=== PATIENT | female | born 2000 | race Caucasian/White ===

== ENCOUNTER → 2025-08-12 | Outpatient (CLI) | payer OTHER, SELFPAY | END | disposition home or self-care (01) | LOC: LABSPEC 12:29 | PROVIDERS: Referring Provider Advanced Practice Midwife; Visit Provider Advanced Practice Midwife | DX: Z34.90 Encounter for supervision of normal pregnancy, unspecified, unspecified trimester (principal); Z3A.00 Weeks of gestation of pregnancy not specified | CPT/HCPCS: 87086 ==

== ENCOUNTER → 2025-09-02 | Outpatient (CLI) | payer OTHER, SELFPAY ==
--- NOTE | 2025-09-02 15:15 | US_ITS ---
PROCEDURE: OB LIMITED WITH BIOMETRICS 09/02/2025 REASON FOR EXAM: GROWTH TECHNIQUE: Procedure Code: USOBGROWTH Modality: US Procedure: OB LIMITED WITH BIOMETRICS COMPARISON: None FINDINGS Number: 1 Position: Vertex Placental Position: Anterior and not low-lying Placental Abnormalities: No evidence of previa. DIMENSIONS: Biparietal Diameter: 8.3 cm: 33 weeks and 3 days: 14 percentile/ Head Circumference: 31.2 cm: 34 weeks and 6 days: 16 percentile/ Abdominal Circumference: 30.5 cm: 34 weeks and 3 days: 41 percentile/ Femur Length: 6.4 cm: 33 weeks and 0 days: 5 percentile/ ESTIMATED WEIGHT: 2322 g plus/-340 g ESTIMATED WEIGHT PERCENTILE (24+ weeks): 21 ESTIMATED GESTATIONAL AGE: Baseline: 35 weeks and 0 days By Ultrasound: October 07, 2025 ESTIMATED DATE OF DELIVERY: Baseline: 33 weeks and 5 days By Ultrasound: October 16, 2025 BIOPHYSICAL ASSESSMENT: Amniotic Fluid Volume: 4.1 cm Amniotic Fluid Index: 12 cm (8-24 cm normal range) Cardiac Motion: 150 beats per minute (average) Trunk and Limb Motion: Present. MATERNAL ANATOMY: Adnexa: Neither maternal ovary is successfully identified. US/OB Limited With Biometrics IMPRESSION: Single live intrauterine gestation with a mean gestational age of 33 weeks and 5 days. Reading Location: [place] [id number]
--- NOTE | 2025-09-02 15:15 | US_ITS ---
PROCEDURE: OB LIMITED WITH BIOMETRICS 09/02/2025 REASON FOR EXAM: GROWTH TECHNIQUE: Procedure Code: USOBGROWTH Modality: US Procedure: OB LIMITED WITH BIOMETRICS COMPARISON: None FINDINGS Number: 1 Position: Vertex Placental Position: Anterior and not low-lying Placental Abnormalities: No evidence of previa. DIMENSIONS: Biparietal Diameter: 8.3 cm: 33 weeks and 3 days: 14 percentile/ Head Circumference: 31.2 cm: 34 weeks and 6 days: 16 percentile/ Abdominal Circumference: 30.5 cm: 34 weeks and 3 days: 41 percentile/ Femur Length: 6.4 cm: 33 weeks and 0 days: 5 percentile/ ESTIMATED WEIGHT: 2322 g plus/-340 g ESTIMATED WEIGHT PERCENTILE (24+ weeks): 21 ESTIMATED GESTATIONAL AGE: Baseline: 35 weeks and 0 days By Ultrasound: October 07, 2025 ESTIMATED DATE OF DELIVERY: Baseline: 33 weeks and 5 days By Ultrasound: October 16, 2025 BIOPHYSICAL ASSESSMENT: Amniotic Fluid Volume: 4.1 cm Amniotic Fluid Index: 12 cm (8-24 cm normal range) Cardiac Motion: 150 beats per minute (average) Trunk and Limb Motion: Present. MATERNAL ANATOMY: Adnexa: Neither maternal ovary is successfully identified. US/OB Limited With Biometrics IMPRESSION: Single live intrauterine gestation with a mean gestational age of 33 weeks and 5 days. Reading Location: [place] [id number]
== END | disposition home or self-care (01) ==
LOC: US 15:12
PROVIDERS: Referring Provider Nurse Practitioner Women's Health; Visit Provider Nurse Practitioner Women's Health
DX: O26.849 Uterine size-date discrepancy, unspecified trimester (principal); Z3A.00 Weeks of gestation of pregnancy not specified
CPT/HCPCS: 76816

== ENCOUNTER → 2025-09-16 | Outpatient (CLI) | payer OTHER, SELFPAY | END | disposition home or self-care (01) | LOC: LABSPEC 16:22 | PROVIDERS: Visit Provider Advanced Practice Midwife | DX: Z34.03 Encounter for supervision of normal first pregnancy, third trimester (principal); Z3A.37 37 weeks gestation of pregnancy | CPT/HCPCS: 87081 ==

== ENCOUNTER 2025-10-01 17:57 | Inpatient (IN) | payer OTHER, SELFPAY ==
[2025-10-01] VITALS (16 sets, daily range): BP systolic 115–136; BP diastolic 67–84; PULSE 76–100; RESP 14–16; TEMP 36.3–36.9; O2SAT 92–99; BMI 25.7
[2025-10-01 15:08] LABS: Hematocrit 34.8 % (37-47); Hemoglobin 11.7 g/dL (12.0-15.0); Mean Corp Hgb Conc 33.6 g/dL (32-36); Mean Corpuscular Volume 84.5 fL (81-99); Mean Platelet Vol. 9.7 fl (6.2-12.0); Platelet Count 234 K/mm3 (150-450); RBC Distribution Width CV 12.7 % (11.6-14.6); RBC Distribution Width SD 39.0 fl (35.1-43.9); Red Blood Count 4.12 M/mm3 (4.2-5.4); White Blood Count 11.4 K/mm3 (4.4-11.0)
[2025-10-01 15:31] LABS: AST(SGOT) 23 U/L (<=31); Alanine Aminotransfer ALT/SGPT 14 U/L (<=34); Uric Acid 4.1 mg/dL (2.6-6.0)
[2025-10-01 15:37] LABS: Creatinine, Urine (random) 20.50 mg/dL (28.00-217.00); Protein, Urine (Random) < 6.0 mg/dL (0.0-12.0); Protein:Creat Ratio UNABLE TO CALCULATE mg/g CRE (0-200)
--- NOTE | 2025-10-01 16:17 | US_ITS ---
PROCEDURE: OB BIOPHYSICAL PROF W/O NST 10/01/2025 REASON FOR EXAM: R/O PRE-E TECHNIQUE: Procedure Code: USBIOWO Modality: US Procedure: OB BIOPHYSICAL PROF W/O NST COMPARISON: US OB LIMITED, 09/02/2025 FINDINGS FETUS: There is a single living intrauterine gestation. POSITION: position is cephalic. HEART RATE: The heart rate is 143 bpm and regular. ANATOMIC SURVEY: Detailed anatomy survey not performed. The visualized anatomy is unremarkable. CERVIX: Not well visualized. PLACENTA: The placenta is anterior. Grade 2. No demonstrated evidence of previa or abruption. BREATHING MOVEMENTS: Score 0/2. BODY MOVEMENTS: Score 2/2. TONE: Score 2/2. QUALITATIVE AMNIOTIC FLUID VOLUME: 7.0 cm, largest pocket 3.0 cm Score 2/2. US/OB Biophysical Prof W/O NST IMPRESSION: 1. Single live intrauterine gestation. 2. Equivocal biophysical profile, 04/25. breathing movements not visualiz ed. Reading Location: [id number]
--- NOTE | 2025-10-01 17:59 | HP.PCM.OB_ITS ---
HPI - General General Date of Admission: 10/01/25 Date of Service: 10/01/25 HPI Narrative CHARLIE ROCHE, is a 25 F who presents to unit for elevated BP in office. Pre e labs normal, BPP 6/8 and decision made for augmentation of labor. She is edgard every 5 minutes palpating moderate. 4/70/-1. Would like to attempt augmentation with AROM and if no change in 3-4 hours will start pitocin. Maternal Data Information [place] Calculator Estimated Delivery Date Method Current WG Current Estimate 10/07/25 LMP (Certain) 39w 1d Final [place]: 10/07/25 Final [place] Source: US >20 weeks Gestational age: 39.1 PFSH PFSH Home Medications Medication Instructions Recorded Last Taken Type multivitamin no.47-iron fum 27 cap PO 10/01/25 History mg-folate no.1 1 mg-dha 300 mg capsule (PNV-DHA) breast pump #1 ea 08/18/25 Unknown Rx Allergy/AdvReac Type Severity Reaction Status Date / Time Latex, Natural Rubber Allergy Mild Rash Verified 10/01/25 16:23 sertraline AdvReac Intermediate Other Verified 10/01/25 16:23 Family History Mother Diabetes Cancer, Onset Age: 40 thyroid cancer Family history of recurrent miscarriage 3 miscarriages Father Hypertension Maternal Grandmother , at 55 yo Breast cancer, Onset Age: 50 Brother Spina bifida Surgical History Hx of tonsillectomy [place] teeth extracted Social History adopted: No household members: spouse housing: house current occupational status: previously employed 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 current occupational exposures/hazards: No pets and animals: Yes (Avoid litterbox) pets and animals: cat(s) and dog(s) history of recent travel: No sexually active: Yes Smoking Status: Never smoker alcohol intake: never substance use type: does not use well-balanced diet: about half the time caffeine: Yes Type: coffee Number of servings: 1 eating out: 1-3 times/week during the past year weight has: remained stable what type of physical activity do you participate in: other details: pilates,strength training light wt frequency: 1-2 times per week duration: 15-30 minutes/day kaleb/confucianist: Holiness seatbelt use: always do you feel safe at home: Yes additional social history: [employer]- [employer] History 2 Elective abortions Hx Para 0 Spontaneous abortions 1 Hx # Term Pregnancies Ectopic pregnancies Hx # Pregnancies Multiple births # of living children 0 Past Pregnancies Del. Date Name GA/Weeks Outcome Route Bth Weight [facility] miscar[facility] 6 spontaneous Visit Details Expected Delivery Route/Plan Labor Preferences- CB/BF classes: no labor support person: Channing labor intervention preferences: minimal preferred but open pain management options preferred: limited but ok with epidural, open to touch, massage, guided breathing, open to prayer cut cord/dad catch: cord : yes PP control planned: [] discussed possible routes of delivery and associated risks: discussed possible delivery modalities and possible indications for each including R/B/A of , VAVD, and CS. questions answered. special requests: [] Plans Covid status: [] Flu vaccine: declines Tdap vaccine: declines Rhogam: NA LARC form signed: yes movement and labor precautions reviewed. Problem list reviewed and updated with the most current plan of care details and appropriate orders placed. Relevant counseling for the gestational age provided. Continue routine care and follow up unless otherwise noted in visit notes/problem list details OB Flowsheet Initial Weight: 168 lb Date - - - - - - - - - - - - - EGA Weight BP Urine Prot - - - - - - - - - - - - - Glucose FHR FuHt Pres Dilation - - - - - - - - - - - - - Effaced St Visit Note 08/12/25 - - - - - - - - - - - - - 32w 0d 168 lb (+0 oz) 118/75 - - - - - - - - - - - - - 140 31 - - - - - - - - - - - - - KW- DANICA from [facility]. Records requested. reports normal labs/glucose and US. LARC today. 08/26/25 - - - - - - - - - - - - - 34w 0d 169 lb 8 oz (+1 lb 8 oz) 120/80 Negative - - - - - - - - -- - - - - Negative 147 32 - - - - - - - - - - - - - MH-No VB, LOF. G ood Fm Declines tdap, flu. Larc 09/16/25 - - - - - - - - - - - - - 37w 0d 174 lb 4 oz (+6 lb 4 oz) 133/80 Negative - - - - - - - - - - - - - Negative 155 36 Cephalic 2 .5 - - - - - - - - - - - - - 60 -2 KW- no vb/ lof/ctx. good fm. GBS today. 09/23/25 - - - - - - - - - - - - - 38w 0d 172 lb 6 oz (+4 lb 6 oz) 130/84 Negative - - - - - - - - - - - - - Negative 125 36 Cephalic 1 - - - - - - - - - - - - - 60 -2 JV- no lof , vaginal bleeding, or dec fm. VICTORIA today is 12.47 10/01/25 - - - - - - - - - - - - - 39w 1d 175 lb 7 oz (+7 lb 7 oz) 138/85 Negative - - - - - - - - - - - - - Negative 140 36 Cephalic 4 - - - - - - - - - - - - - 70 -1 KW- no vb/ lof/ctx. good fm. requesting membrane sweep today. NST FHR Rate Baby A Baseline: 135 Variability:: Moderate Accelerations:: 15 x 15 Decelerations:: None NST Reactive:: Yes FHR Category:: Category I Uterine Activity:: 5-6 ROS Constitutional Constitutional: Denies change in weight, fatigue, fever(s), headache(s), poor appetite or weakness Eyes Eyes: Denies blurry vision, change in vision, floaters, seeing flashes or spots in vision ENT HEENT: Denies dizziness, headache(s), loss taste/smell or sore throat Cardiovascular Cardiovascular: Denies chest pain, dizziness, dyspnea, irregular heart rhythm, lightheadedness, palpitations or rapid heart rate Respiratory/Chest Respiratory/Chest: Denies change in mental status, chest tightness, cough, dyspnea or breast pain Gastrointestinal Gastrointestinal: Denies anorexia, chewing difficulty, constipation, diarrhea or weight changes Genitourinary Genitourinary: Denies difficulty urinating, dysuria, flank pain, genital pain, urinary frequency or urinary urgency Musculoskeletal Musculoskeletal: Denies back pain, difficulty walking, extremity pain, joint pain, muscle cramps or muscle weakness Integumentary Integumentary: Denies lesions or unusual bruising Neurologic Neurologic: Denies abnormal movements, abnormal speech, dizziness, numbness, seizure-like activity, syncope or weakness Psychiatric Psychiatric: Denies behavioral changes, change in appetite, confusion, depression, homicidal ideation, suicidal ideation or suicidal thoughts Endocrine Endocrinology: Denies excessive sweating, polydipsia or polyuria Hematologic/Lymphatic Hematologic/Lymphatic: Denies anemia Allergic/Immunologic Allergic/Immunologic: Denies itchy eyes, lip swelling, throat swelling, tongue swelling or wheezing Vital Signs Vital Signs Vital Signs: 10/01/25 14:47 10/01/25 14:47 10/01/25 14:47 Temperature Temperature Source Pulse Rate 81 Respiratory Rate Blood Pressure 136/84 H BP Systolic 136 BP Diastolic 84 Pulse Ox 98 10/01/25 14:50 10/01/25 14:50 10/01/25 14:50 Temperature Temperature Source Tympanic Pulse Rate Respiratory Rate 14 Blood Pressure BP Systolic BP Diastolic Pulse Ox 99 10/01/25 14:50 10/01/25 15:02 10/01/25 15:02 Temperature 98.0 F Temperature Source Pulse Rate 77 Respiratory Rate Blood Pressure 131/84 H BP Systolic 131 BP Diastolic 84 Pulse Ox 10/01/25 15:17 10/01/25 15:17 10/01/25 15:33 Temperature Temperature Source Pulse Rate 91 Respiratory Rate Blood Pressure 120/74 119/74 BP Systolic 120 119 BP Diastolic 74 74 Pulse Ox 10/01/25 15:33 10/01/25 15:47 10/01/25 15:47 Temperature Temperature Source Pulse Rate 82 81 Respiratory Rate Blood Pressure 127/79 H BP Systolic 127 BP Diastolic 79 Pulse Ox 10/01/25 16:03 10/01/25 16:03 10/01/25 16:18 Temperature Temperature Source Pulse Rate 82 Respiratory Rate Blood Pressure 122/76 H 128/76 H BP Systolic 122 128 BP Diastolic 76 76 Pulse Ox 10/01/25 16:18 10/01/25 16:32 10/01/25 16:32 Temperature Temperature Source Pulse Rate 78 83 Respiratory Rate Blood Pressure 115/68 BP Systolic 115 BP Diastolic 68 Pulse Ox 10/01/25 16:47 10/01/25 16:47 Temperature Temperature Source Pulse Rate 100 Respiratory Rate Blood Pressure 116/72 BP Systolic 116 BP Diastolic 72 Pulse Ox Weight Weight: 174 lb Body Mass Index (BMI) 25.7 Physical Exam Const alert, oriented x3 and no apparent distress General Appearance: cooperative Orientation / Consciousness: awake HEENT normocephalic Neck full ROM Lymph Lymphatic: no lymphadenopathy noted Chest inspection of chest normal Resp normal respiratory effort and normal air movement Effort and Inspection: able to speak in complete sentences and symmetric chest movement GI soft to palpation and non-tender Inspection: gravid Palpation: soft; Negative for tender external exam normal Back/Spine normal to inspection Extremity normal to inspection and full ROM Skin no rashes or lesions noted Psych mental status grossly normal Appearance: grossly normal Speech: normal speech Labs Labs Labs: Hct, (37-47) 34.8 % L Hgb, (12.0-15.0) 11.7 g/dL L Pap Smear Negative Obstetrics Ultrasound Assessment & Plan (1) Encounter for induction of labor: PLAN: Patient presents IOL, plan management for with pitocin/AROM. Pain management: plans no epidural. GBS negative. Management of any complications: none I have reviewed the [facility] and made any clinically relevant updates. Dr Link aware of assessment, plan and admission. agrees with plan (2) Small for dates affecting management of mother: QUALIFIERS: Fetus number: single or unspecified fetus Trimester: third trimester Qualified Code(s): O36.5930 - Maternal care for other known or suspected poor growth, third trimester, not applicable or unspecified COMMENT: growth US:33wk:21% EFW, 41%AC (3) Anxiety: (4) FH: spina bifida: COMMENT: Brother-Pt not offered AFP testing at prior provider. (5) History of miscarriage, currently : (6) Supervision of normal : QUALIFIERS: Normal : normal first Trimester: third trimester Qualified Code(s): Z34.03 - Encounter for supervision of normal first , third trimester COMMENT: PRR(scanned/[facility]) , [place] 10/07/25, [place] (7) : QUALIFIERS: Weeks of gestation: 39 weeks Qualified Code(s): Z3A.39 - 39 weeks gestation of COMMENT: GBS neg, DANICA to [facility] @ 32 wks, declined NIPT & Carrier testing Charges/Coding Multi Select Codes Urinary/Genital Urinary/Genital CPT Codes: No Charge
--- OUTSIDE RECORDS SUMMARY | 2025-10-01 18:07 | XMS RPT_ITS | CCD ---
Author Organization [facility] Care Team Providers Care Director Blood Bank Name Role Phone Candelario MOODY MD Unavailable MARISELA TRIANA, SHARON Malik Unavailable MEGAN LEBLANC RN Unavailable Unavailable JERRELL SALMON Unavailable Esteban MADRID MD Unavailable DORIS EL Unavailable Unavailable MASHA HI Unavailable Unavailable Nay Khan RN Unavailable Unavailable Unavailable Unavailable Candelario MOODY Consulting Unavailable Candelario MOODY Referring Unavailable RAAD UNGER MD Admitting Unavailable RAAD UNGER MD Primary Care Unavailable RAAD UNGER MD Attending Unavailable PROVIDER, UNKNOWN Consulting Unavailable PROVIDER, UNKNOWN Consulting Unavailable PROVIDER, UNKNOWN Consulting Unavailable Candelario MOODY Admitting Unavailable Candelario MOODY Primary Care Unavailable Candelario MOODY Consulting Unavailable Candelario MOODY Attending Unavailable PROVIDER, UNKNOWN Consulting Unavailable PROVIDER, UNKNOWN Consulting Unavailable PROVIDER, UNKNOWN Consulting Unavailable JERRELL SALMON Unavailable Unav ailable FRANSISCO TRIANA, DR MACK Primary Care Physician DENISE OROZCO Attending Lexie MOODY MD, DR MACK Primary Care Unavailable FRANSISCO TRIANA, DR MACK Primary Care Unavailable DENISE OROZCO Attending Lexie MOODY MD, DR MACK Primary Care Unavailable DENISE OROZCO Attending eBrnice Che Attending Physician Unavailable Neva Dodge CNM Attending Physician [phone] Neva Dodge CNM Referring Provider [place] SULFIDE HEAD OPERATOR-C, Addie Attending Physician [phone] Bernice Quintero Attending Unavailable Neva Dodge Attending Unavailable Bernice Quintero Attending Unavailable Bernice Quintero Attending Unavailable Bernice Quintero Attending Unavailable Care Physician, No Primary Primary Care Unava ilable [place] SULFIDE HEAD OPERATOR, Addie Attending Unavailable [place] SULFIDE HEAD OPERATOR, Addie Referring Unavailable Neva Dodge Attending Unavailable Care Physician, No Primary Primary Care Unava ilable Neva Dodge Attending Unavailable Neva Dodge Referring Unavailable Bernice Quintero Attending Unavailable [place] SULFIDE HEAD OPERATOR, Addie Attending Unavailable Care Physician, No Primary Primary Care Unava ilable Care Physician, No Primary Referring Unava ilable Meli Link Attending Unavailable Care Physician, No Primary Primary Care Unava ilable Neva Dodge Attending Unavailable Care Physician, No Primary Referring Unava ilable Care Physician, No Primary Referring Unava ilable Care Physician, No Primary Primary Care Unava ilable Payton Bah Attending Unavailabl e Bernice uQintero Attending Physician Unavailable Dar SIMMONS, Neva Attending Physician [phone] Neva Dodge CNM Referring Provider [phone] [place] SULFIDE HEAD OPERATOR-C, Addie Attending Physician [phone] [place] SULFIDE HEAD OPERATOR-C, Addie Referring Provider [phone] Care Physician, No Primary Primary Care Physicia n Unavailable Dr. Meli Link MD Attending Physician Care Physician, No Primary Referring Provider Un available Dr. Payton Bah DO Attending Physician Allergies Allergy Classification Reported Allergen(s) Allergy Type Date of Onset Reaction(s) Facility (7 sources) Amoxicillin / Clavulanate Drug Allergy [facility] (15 sources) Latex; Translations: [LATEX] [facility] (11 sources) Sertraline Drug Allergy 08-12-2025 [facility] Comment on above: epistaxis (4 sources) natural latex rubber Allergy to substance 08-12-[address] [facility] (1 source) natural latex rubber Drug allergy (disorder) 09-23-2025 [facility] (1 source) Sertraline Drug Allergy 09-23-2025 [facility] Medications Current Medications Medication Drug Class(es) Dates Sig (Normalized) Sig (Original) azithromycin 250 mg oral tablet (9 sources) Macrolide Antimicrobial Start: 11-20-2024 azithromycin 250 mg tablet ; 2 (two) Tablet on day one, then 1 tablet daily for 4 days for 5 days Quantity: 6 {Tablet} Refills: 0 Ordered: 20-Nov-2024 MD SHARON ANTONIO Start: 20-Nov-2024 Start: 02-06-2023 End: 02-11-2023 take 1 tablet by mouth once daily azithromycin 500 mg oral tablet ; 1 (one) tablet daily for 5 days Quantity: 5 {Tablet} Refills: 0 Ordered: 01-Jul-2023 ANDREI CASTRO Start: 06-Feb-2023 End: 11-Feb-2023 Status: Inactive Breast Pump device (3 sources) Start: 08-18-2025 Breast Pump de vice Active 0 .Route 1 0 August 17, 2025 11:00pm Breast feeding status of mother Encounter for care and examination of lactating mother Medela breast pump. Use as directed. Start: 08-18-2025 Breast Pump de vice Active 0 .Route 1 0 August 18, 2025 12:00am Breast feeding status of mother Encounter for care and examination of lactating mother Medela breast pump. Use as directed. Multivit 17-Ebzb-Ayfnfz 1-Dh a (Pnv-Dha) 27 mg iron-1 mg -300 mg capsule (3 sources) Start: 08-11-2025 Multivit 47-Ir on-Folate 1-Dha (Pnv-Dha) 27 mg iron-1 mg -300 mg capsule Active NMA PO August 10, 2025 11:00pm Complies with drug therapy Start: 08-11-2025 Multivit 47-Ir on-Folate 1-Dha (Pnv-Dha) 27 mg iron-1 mg -300 mg capsule Active NMA PO August 11, 2025 12:00am Complies with drug therapy omega-3 fatty acids 1,000 mg capsule (4 sources) omega-3 fatty ac ids 1,000 mg capsule ; (1,000 mg) Vitamin (4 sources) Vitamin Completed/Discontinued Medications Medication Drug Class(es) Dates Sig (Normalized) Sig (Original) cephalexin 250 mg oral capsule (14 sources) Cephalosporin Antibacterial Start: 02-19-2024 End: 02-29-2024 cephALEXin 250 mg capsule ; 1 (one) capsule qid for 10 days Quantity: 40 {Capsule} Refills: 0 Ordered: 30-Jul-2024 MD Candelario MOODY Start: 19-Feb-2024 End: 29-Feb-2024 Status: Inactive Start: 08-29-2019 End: 09-08-2019 take 1 capsule by mouth three times daily Cephalexin 500 MG Oral Capsule ; 1 (one) Capsule tid for 10 days Quantity: 30 {Capsule} Refills: 0 Ordered: 29-Aug-2019 MD Candelario MOODY Start: 29-Aug-2019 End: 08-Sep-2019 Status: Inactive DULoxetine 20 mg delayed release oral capsule (7 sources) Serotonin and Norepinephrine Reuptake Inhibitor Start: 06-02-2021 End: 02-06-2023 take 1 capsule by mouth once daily DULoxetine 20 mg oral capsule,delayed release (enteric coated) ; 1 (one) Capsule daily for 30 days Quantity: 30 {Capsule} Refills: 1 Ordered: 06-Feb-2023 MI Khan Start: 02-Jun-2021 End: 06-Feb-2023 Status: Inactive Ethinyl Estradiol / Levonorgestrel (7 sources) Progestin, Estrogen, Progestin-containin g Intrauterine Device Aviane 0.1-20 MG-MCG Oral Tablet ; daily (0.1-20 MG-MCG) Status: Inactive Comments: control Comment on above: control hydrOXYzine hydrochloride 25 mg oral tablet (7 sources) Antihistamine Start: 06-02-2021 End: 06-12-2021 take 1 tablet by mouth four times daily as needed hydrOXYzine HCl 25 MG Oral Tablet ; 1 (one) Tablet 4 times a day as needed for 10 days Quantity: 40 {Tablet} Refills: 0 Ordered: 14-Jun-2021 ANDREI CASTRO Start: 02-Jun-2021 End: 12-Jun-2021 Status: Inactive Comments: Medication taken as needed. Comment on above: Medication taken as needed. ondansetron 4 mg disintegrating oral tablet (7 sources) Serotonin-3 Receptor Antagonist Start: 09-27-2017 End: 02-26-2018 take 1 tablet by mouth every eight hours as needed Zofran ODT 4 MG Oral Tablet Disintegrating ; 1 (one) Tablet Disperse every eight hours, as needed for 0 days Quantity: 8 {Tablet} Refills: 2 Ordered: 26-Feb-2018 CIPRIANO MARTIN Start: 27-Sep-2017 End: 26-Feb-2018 Status: Inactive Comments: Medication taken as needed. Comment on above: Medication taken as needed. sertraline 50 mg oral tablet (7 sources) Serotonin Reuptake Inhibitor Start: 05-05-2021 End: 02-06-2023 take 1 tablet by mouth once daily Zoloft 50 mg oral tablet ; 1 (one) Tablet Tablet daily for 30 days Quantity: 30 {Tablet} Refills: 1 Ordered: 06-Feb-2023 MI Khan Start: 05-May-2021 End: 06-Feb-2023 Status: Inactive sulfamethoxazole 800 mg / trimethoprim 160 mg oral tablet (7 sources) Dihydrofolate Reductase Inhibitor Antibacterial, Sulfonamide Antimicrobial Start: 02-26-2018 End: 03-01-2018 take 1 tablet by mouth twice daily Bactrim DS 800-160 MG Oral Tablet ; 1 (one) Tablet bid for 3 days Quantity: 6 {Tablet} Refills: 0 Ordered: 03-Mar-2018 MD Candelario MOODY Start: 26-Feb-2018 End: 01-Mar-2018 Status: Inactive triamcinolone acetonide 0.055 mg/actuat metered dose nasal spray (7 sources) Corticosteroid Nasacort Allergy 24HR 55 MCG/ACT Nasal Aerosol ; 2 squirts each nose daily (55 MCG/ACT) Status: Inactive Problems Active Problems Problem Classification Problem Date Documented Date Episodic/Chronic Administrative/socia l admission (14 sources) Patient encounter status; Translations: [Counseling, unspecified] 02-06-2023 Episodic Anxiety disorders (20 sources) Mixed anxiety and depressive disorder; Translations: [Anxiety disorder, unspecified] Onset: 09-23-2025 02-06-2023 Chronic Disorders of teeth and jaw (7 sources) Toothache; Translations: [Other specified disorders of teeth and supporting structures] 08-27-2019 Episodic Gastritis and duodenitis (14 sources) Acute gastritis; Translations: [Acute gastritis without bleeding] 02-06-2023 Episodic Immunizations and screening for infectious disease (7 sources) Other specified vaccination 05-14-2012 Episodic Other and unspecified benign neoplasm (14 sources) Melanocytic nevus of trunk; Translations: [Melanocytic nevi of trunk] 02-06-2023 Episodic Comment on above: Dark, back. 5mm. Other and unspecified benign neoplasm (14 sources) Benign neoplasm of soft tissue; Translations: [Melanocytic nevi, unspecified] 02-06-2023 Episodic Comment on above: 1 Left breast. 1 mm. Benign. Other complications of ; puerperium affecting management of mother (1 source) Maternal care for (suspected) abnormality and damage, unspecified, not applicable or unspecified; Translations: [Maternal care for (suspected) abnormality and damage, unspecified, not applicable or unspecified] Onset: 05-28-2025 Episodic Other complications of (13 sources) H/O: miscarriage; Translations: [Supervision of with other poor reproductive or obstetric history, unspecified trimester] 08-11-2025 Episodic Other complications of (1 source) Maternal care for other known or suspected poor growth, third trimester, not applicable or unspecified; Translations: [Maternal care for other known or suspected poor growth, third trimester, not applicable or unspecified] Onset: 09-23-2025 Episodic Other complications of (1 source) Supervision of with other poor reproductive or obstetric history, unspecified trimester; Translations: [Supervision of with other poor reproductive or obstetric history, unspecified trimester] Onset: 09-23-2025 Episodic Other complications of (1 source) Uterine size-date discrepancy, unspecified trimester; Translations: [Uterine size-date discrepancy, unspecified trimester] Onset: 09-16-2025 Episodic Other complications of (10 sources) Poor growth affecting management; Translations: [Maternal care for other known or suspected poor growth, unspecified trimester, not applicable or unspecified] 09-05-2025 Episodic Comment on above: growth US:33wk:21% E FW, 41%AC Other female genital disorders (8 sources) Vaginal bleeding; Translations: [Abnormal uterine and vaginal bleeding, unspecified] 07-30-2024 Chronic Other conditions (1 source) 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; Translations: [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] Onset: 05-28-2025 Episodic Other and delivery including normal (20 sources) Normal ; Translations: [Encounter for supervision of normal , unspecified, unspecified trimester] Onset: 09-08-2025 08-11-2025 Episodic Comment on above: , [place] 10/07/25, [place] DANICA to [facility] @ 32 wks, declined NIPT & Carrier testing PRR(scanned/[facility]) , [place] 10/07/25, Raymond GBS neg, DANICA to [facility] @ 32 wks, declined NIPT & Carrier testing Other screening for suspected conditions (not mental disorders or infectious disease) (1 source) Encounter for screening for malformations; Translations: [Encounter for screening for malformations] Onset: 05-28-2025 Episodic Other skin disorders (7 sources) Finding of axilla; Translations: [Localized swelling, mass and lump, unspecified upper limb] 08-27-2019 Episodic Other upper respiratory infections (20 sources) Sore throat symptom; Translations: [Acute pharyngitis, unspecified] 02-19-2024 Episodic Residual codes; unclassified (1 source) 14 weeks gestation of ; Translations: [14 weeks gestation of ] Onset: 05-28-2025 Episodic Residual codes; unclassified (1 source) 21 weeks gestation of ; Translations: [21 weeks gestation of ] Onset: 05-28-2025 Episodic Residual codes; unclassified (13 sources) Family history of Spina bifida; Translations: [Family history of other congenital malformations, deformations and chromosomal abnormalities] 08-11-2025 Episodic Comment on above: Brother-Pt not offer ed AFP testing at prior provider. Residual codes; unclassified (1 source) Family history of other congenital malformations, deformations and chromosomal abnormalities; Translations: [Family history of other congenital malformations, deformations and chromosomal abnormalities] Onset: 09-23-2025 Episodic Residual codes; unclassified (1 source) 38 weeks gestation of ; Translations: [38 weeks gestation of ] Onset: 09-23-2025 Episodic Residual codes; unclassified (2 sources) 37 weeks gestation of ; Translations: [37 weeks gestation of ] Onset: 09-16-2025 Episodic Residual codes; unclassified (1 source) 35 weeks gestation of ; Translations: [35 weeks gestation of ] Onset: 09-08-2025 Episodic Superficial injury; contusion (7 sources) Contusion of finger; Translations: [Contusion of left middle finger without damage to nail, sequela] 07-11-2015 Episodic Urinary tract infections (14 sources) Acute urinary tract infection; Translations: [Urinary tract infection, site not specified] 02-06-2023 Episodic Past or Other Problems Problem Classification Problem Date Documented Date Episodic/Chronic Hemorrhage during ; abruptio placenta; placenta previa (1 source) Other hemorrhage in early ; Translations: [Other hemorrhage in early ] Onset: 03-05-2025 Episodic Induced (1 source) Encounter for elective termination of ; Translations: [Encounter for elective termination of ] Onset: 03-05-2025 Episodic Mood disorders (7 sources) Mood disorders 06-02-2021 Other complications of (1 source) Supervision of with other poor reproductive or obstetric history, first trimester; Translations: [Supervision of with other poor reproductive or obstetric history, first trimester] Onset: 03-05-2025 Episodic Residual codes; unclassified (1 source) 9 weeks gestation of ; Translations: [9 weeks gestation of ] Onset: 03-05-2025 Episodic Residual codes; unclassified (1 source) Personal history of other complications of , childbirth and the puerperium; Translations: [Personal history of other complications of , childbirth and the puerperium] Onset: 03-05-2025 Episodic Unclassified (7 sources) Sore throat - Note for "Sore throat": Onset fever yesterday and gradual onset severe ST. H/O strep. 02-19-2024 Unclassified (7 sources) Sore throat - The onset of the sore throat has been acute and has been occurring for 1 day (symptoms started yesterday). The symptoms have been associated with fever and runny nose, while the symptoms have not been associated with cough. Note for "Sore throat": Pt also c/o fatigue and nausea. 02-06-2023 Unclassified (7 sources) Anxiety - The onset of the anxiety has been acute. The symptoms have been associated with insomnia. Note for "Anxiety": pt has dealt with anxiety for a while and it is getting worse. 05-05-2021 Unclassified (7 sources) Tooth Pain - Symptoms include dental pain in a single tooth. Symptoms are located in the right maxillary area. The pain radiates to the cheek, the ear and the neck. The patient describes the pain as aching. Onset was 2 week(s) ago. Note for "Dental pain": Pt. was to her dentist and does have a wisdom tooth coming in on the right lower side of her mouth. She started with swollen lymph nodes in her neck and axilla on her right side and then went to an ENT. She was given nasocort and was told she may have had a slight viral illness but was not treated. She feels that most of her symptoms may be from her wisdom tooth but is here to be sure. Here for exam. 08-27-2019 Unclassified (7 sources) !Patient notification of lab results - [facility]. The test(s) that you had done were/was blood work (The culture showed no growth so you may stop the antibiotics at this time). You should call our office if you have any questions. 03-03-2018 Unclassified (7 sources) Pain on urination - The pain on urination has been occurring for 2 days. The symptoms have been associated with flank pain (right) and frequency. Note for "Pain on urination": Started Azo yesterday. Here for exam. 02-26-2018 Unclassified (7 sources) Vomiting - Onset was 1 month(s) ago. The symptoms occur intermittently. Associated symptoms include lightheadedness. Note for "Vomiting": pt c/o earache and soretroat at times. 09-27-2017 Unclassified (7 sources) Skin lesion - Note for "Skin lesion": Pt noticed a spot on her left breast 2 days ago. No pain.. 11-17-2015 Unclassified (7 sources) Hand pain - The pain affects the left hand. The pain is located in the long finger. Note for "Hand pain": Jammed finger in basketball couple weeks ago, now couple days ago hit it with volleyball. Some swelling and pain. 07-11-2015 Unclassified (7 sources) Physical examination - The patient is here for a work physical. Note for Physical examination": [facility]. Here for exam. 05-14-2012 Unclassified (4 sources) Vaginal bleeding - The bleeding has been occuring for hours (started this morning). Note for "Vaginal bleeding": LMP 06/16/24. Pt c/o lower abd pain/cramping. Slight bleeding with some clots. Pt said her blood type is 'something' positive. 07-30-2024 Unclassified (2 sources) Sore throat - The onset of the sore throat has been acute and has been occurring for 24 hours. The symptoms have been associated with cough (minor), while the symptoms have not been associated with fever. Note for "Sore throat": Also reports nausea, body aches. 11-20-2024 Results Test Name Value Interpretation Reference Range Facility Laboratory - Chemistry and C hemistry - challengeOrdered By: Payton Johnson on 09-23-2025 Glucose Ql (U) Negative [facility] - UrinalysisOrder ed By: Payton Johnson on 09-23-2025 Protein Ql (U) Negative [facility] Pit Crane Operator Office Visit Reporton 09-23-2025 Pit Crane Operator Office Visit Report [facility] [address], [address] [place] [address] OFFICE VISIT Date of Service: 09/23/25 MR#: [id number] Acct: [id number] Name: CHARLIE MÁRQUEZ Rep #: [id number] : 2000 Provider: Dr. Payton Fisher, Age/Sex: 25/F [place] [facility] [place]: Signed Intake Vital Signs 08/12/25 08:24 09/16/25 11:09 09/23/25 15:06 Height 5 ft 9 in 5 ft 9 in 5 ft 9 in Weight: 172 lb 6 oz BMI 25.4 BP 130/84 H Intake Visit Reasons: 38 WK OB Chief Complaint: 38wk OB Psychiatric Nurse Practitioner Required: No Is patient in pain?: No Allergies Latex, Natural Rubber Allergy (Mild, Verified 09/23/25 15:04) Rash sertraline Adverse Reaction (Intermediate, Verified 09/23/25 15:04) Other Medications ???Medication ???Instructions ???Recorded ???Confirmed ???Type multivitamin no.47-iron fum 27 cap PO 08/11/25 09/23/25 History mg-folate no.1 1 mg-dha 300 mg capsule (PNV-DHA) breast pump #1 ea 08/18/25 09/23/25 Rx Last Menstrual Period: 12/31/24 : No Have you fallen in the past year?: No PFSH PFSH Surgical History Hx of tonsillectomy [place] teeth extracted Family History Mother Diabetes Cancer, Onset Age: 40 thyroid cancer Family history of recurrent miscarriage 3 miscarriages Father Hypertension Maternal Grandmother , at 55 yo Breast cancer, Onset Age: 50 Brother Spina bifida Social History adopted: No household members: spouse housing: house current occupational status: previously employed 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 occupational exposures/hazards: No pets and animals: Yes (Avoid litterbox) pets and animals: cat(s) and dog(s) history of recent travel: No sexually active: Yes Smoking Status: Never smoker alcohol intake: never substance use type: does not use well-balanced diet: about half the time caffeine: Yes Type: coffee Number of servings: 1 eating out: 1-3 times/week during the past year weight has: remained stable what type of physical activity do you participate in: other details: pilates,strength training light wt frequency: 1-2 times per week duration: 15-30 minutes/day kaleb/denominational: Buddhism seatbelt use: always do you feel safe at home: Yes additional social history: [employer]- [employer] History 2 Elective abortions Hx Para 0 Spontaneous abortions 1 Hx # Term Pregnancies Ectopic pregnancies Hx # Pregnancies Multiple births # of living children 0 Past Pregnancies Del. Date Name GA/Weeks Outcome Route Bth Weight Infant Gen Labor Lgth Anesthesia Del Locatn Provider FOB 07/30/24 miscarriage 6 spontaneous HPI 38 WK OB Details: CHARLIE MÁRQUEZ is a 25 year old who presents for routine OB visit. OB Visit [place] Calculator Estimated Delivery Date Method Current WG Current Estimate 10/07/25 LMP (Certain) 38w 0d Expected Delivery Route/Plan Labor Preferences- CB/BF classes: no labor support person: Ch[place] labor intervention preferences: minimal preferred but open pain management options preferred: limited but ok with epidural, open to touch, massage, guided breathing, open to prayer cut cord/dad catch: cord : yes PP control planned: [] discussed possible routes of delivery and associated risks: discussed possible delivery modalities and possible indications for each including R/B/A of , VAVD, and CS. questions answered. special requests: [] Specific Issue/Plans Covid status: [] Flu vaccine: declines Tdap vaccine: declines Rhogam: NA LARC form signed: yes movement and labor precautions reviewed. Problem list reviewed and updated with the most current plan of care details and appropriate orders placed. Relevant counseling for the gestational age provided. Continue routine care and follow up unless otherwise noted in visit notes/problem list details Initial Weight: 168 lb Date -???-???-???-???-???-? ??-???-???-???-???-??? -???- EGA Weight BP Urine Prot -???-???-???-???-???-? ??-???-???-???-???-??? -???- Glucose FHR FuHt Pres Dilation -???-???-???-???-???-? ??-???-???-???-???-??? -???- Effaced St Visit Note 08/12/25 -???-???-???-???-???-? ??-???-???-???-???-??? -???- 32w 0d 168 lb (+0 oz) 118/75 -???-???-???-???-???-? ??-???-???-???-???-??? -???- 140 31 -???-???-???-???-???-? ??-???-???-???-???-??? -???- KW- DANICA from [facility]. Records requested. reports normal labs/glucose and US. LARC today. 08/26/25 -???-???-???-???-???-? ??-???-???-???-???-??? -???- 34w 0d 169 lb 8 oz (+1 lb 8 oz) 120/80 Negative -???-?? (more content not included)... Normal [facility] Rule out Beta Strep (Grp. B) on 09-18-2025 NELY Group B Beta Streptococcus is not isolated. Normal [facility] Comment on above: Performed By: #### M [id number] #### [facility] [address] [place], [address] Screening beta-hemolytic Str eptococcus cultureOrdered By: Neva Dodge on 09-17-2025 Beta-hemolytic Streptococcus culture Group B Beta Streptococcus is not isolated. [facility] - Chemistry and C hemistry - challengeOrdered By: Neva Dodge on 09-16-2025 Glucose Ql (U) Negative [facility] - UrinalysisOrder ed By: Neva Dodge on 09-16-2025 Protein Ql (U) Negative [facility] Pit Crane Operator Office Visit Reporton 09-16-2025 Pit Crane Operator Office Visit Report [facility] [address], [address] [place] [address] OFFICE VISIT Date of Service: 09/16/25 MR#: [id number] Acct: [id number] Name: CHARLIE MÁRQUEZ Rep #: [id number] : 2000 Provider: TROY Stiles ams Age/Sex: 25/F Location: [facility] [place] Status: Signed Intake Vital Signs 08/12/25 08:24 09/08/25 11:15 09/16/25 11:09 Height 5 ft 9 in 5 ft 9 in 5 ft 9 in Weight: 174 lb 4 oz BMI 25.7 BP 133/80 H Intake Visit Reasons: 37 WK OB Chief Complaint: 37wk OB Psychiatric Nurse Practitioner Required: No Is patient in pain?: No Allergies Latex, Natural Rubber Allergy (Mild, Verified 09/16/25 11:07) Rash sertraline Adverse Reaction (Intermediate, Verified 09/16/25 11:07) Other Medications ???Medication ???Instructions ???Recorded ???Confirmed ???Type multivitamin no.47-iron fum 27 cap PO 08/11/25 09/16/25 History mg-folate no.1 1 mg-dha 300 mg capsule (PNV-DHA) breast pump #1 ea 08/18/25 09/16/25 Rx Last Menstrual Period: 12/31/24 : No PFSH PFSH Surgical History Hx of tonsillectomy [place] teeth extracted Family History Mother Diabetes Cancer, Onset Age: 40 thyroid cancer Family history of recurrent miscarriage 3 miscarriages Father Hypertension Maternal Grandmother , at 55 yo Breast cancer, Onset Age: 50 Brother Spina bifida Social History adopted: No household members: spouse housing: house current occupational status: previously employed 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 occupational exposures/hazards: No pets and animals: Yes (Avoid litterbox) pets and animals: cat(s) and dog(s) history of recent travel: No sexually active: Yes Smoking Status: Never smoker alcohol intake: never substance use type: does not use well-balanced diet: about half the time caffeine: Yes Type: coffee Number of servings: 1 eating out: 1-3 times/week during the past year weight has: remained stable what type of physical activity do you participate in: other details: pilates,strength training light wt frequency: 1-2 times per week duration: 15-30 minutes/day kaleb/denominational: Buddhism seatbelt use: always do you feel safe at home: Yes additional social history: [employer] History 2 Elective abortions Hx Para 0 Spontaneous abortions 1 Hx # Term Pregnancies Ectopic pregnancies Hx # Pregnancies Multiple births # of living children 0 Past Pregnancies Del. Date Name GA/Weeks Outcome Route Bth Weight Infant Gen Labor Lgth Anesthesia Del Locatn Provider FOB 07/30/24 miscarriage 6 spontaneous HPI 37 WK OB Details: CHARLIE MÁRQUEZ is a 25 year old who presents for routine OB visit. OB Visit [place] Calculator Estimated Delivery Date Method Current WG Current Estimate 10/07/25 LMP (Certain) 37w 0d Expected Delivery Route/Plan Labor Preferences- CB/BF classes: no labor support person: Channing labor intervention preferences: minimal preferred but open pain management options preferred: limited but ok with epidural, open to touch, massage, guided breathing, open to prayer cut cord/dad catch: cord : yes PP control planned: [] discussed possible routes of delivery and associated risks: discussed possible delivery modalities and possible indications for each including R/B/A of , VAVD, and CS. questions answered. special requests: [] Specific Issue/Plans Covid status: [] Flu vaccine: declines Tdap vaccine: declines Rhogam: NA LARC form signed: yes movement and labor precautions reviewed. Problem list reviewed and updated with the most current plan of care details and appropriate orders placed. Relevant counseling for the gestational age provided. Continue routine care and follow up unless otherwise noted in visit notes/problem list details Initial Weight: 168 lb Date -???-???-???-???-???-? ??-???-???-???-???-??? -???- EGA Weight BP Urine Prot -???-???-???-???-???-? ??-???-???-???-???-??? -???- Glucose FHR FuHt Pres Dilation -???-???-???-???-???-? ??-???-???-???-???-??? -???- Effaced St Visit Note 08/12/25 -???-???-???-???-???-? ??-???-???-???-???-??? -???- 32w 0d 168 lb (+0 oz) 118/75 -???-???-???-???-???-? ??-???-???-???-???-??? -???- 140 31 -???-???-???-???-???-? ??-???-???-???-???-??? -???- KW- DANICA from My OBGYN. Records requested. reports normal labs/glucose and US. LARC today. 08/26/25 -???-???-???-???-???-? ??-???-???-???-???-??? -???- 34w 0d 169 lb 8 oz (+1 lb 8 oz) 120/80 Negative -???-???-???-???-???-? ??-???-???-???-???-??? -???- Negat (more content not included)... Normal [facility] - Chemistry and C hemistry - challengeOrdered By: Meli Link on 09-08-2025 Glucose Ql (U) Negative [facility] - UrinalysisOrder ed By: Meli Link on 09-08-2025 Protein Ql (U) Negative [facility] Pit Crane Operator Office Visit Reporton 09-08-2025 Pit Crane Operator Office Visit Report [facility] [address], [address] [place] [address] OFFICE VISIT Date of Service: 09/08/25 MR#: [id number] Acct: [id number] Name: CHARLIE MÁRQUEZ Rep #: [id number] : 2000 Provider: Dr. Meli mccarty MD Age/Sex: 25/F Location: [facility] [place] Status: Signed Intake Vital Signs 08/12/25 08:24 08/26/25 09:53 09/08/25 11:15 Height 5 ft 9 in 5 ft 9 in 5 ft 9 in Weight: 169 lb 8 oz 171 lb 2 oz BMI 25.0 25.2 BP 120/80 136/82 H Intake Visit Reasons: 35 WK 6D OB Psychiatric Nurse Practitioner Required: No Is patient in pain?: No Allergies Latex, Natural Rubber Allergy (Mild, Verified 09/08/25 11:16) Rash sertraline Adverse Reaction (Intermediate, Verified 09/08/25 11:16) Other Medications ???Medication ???Instructions ???Recorded ???Confirmed ???Type multivitamin no.47-iron fum 27 cap PO 08/11/25 09/08/25 History mg-folate no.1 1 mg-dha 300 mg capsule (PNV-DHA) breast pump #1 ea 08/18/25 09/08/25 Rx Last Menstrual Period: 12/31/24 Zika: Zika virus screening: Negative : No Have you fallen in the past year?: No PFSH PFSH Surgical History Hx of tonsillectomy [place] teeth extracted Family History Mother Diabetes Cancer, Onset Age: 40 thyroid cancer Family history of recurrent miscarriage 3 miscarriages Father Hypertension Maternal Grandmother , at 55 yo Breast cancer, Onset Age: 50 Brother Spina bifida Social History adopted: No household members: spouse housing: house current occupational status: previously employed 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 occupational 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/hazards: No pets and animals: Yes (Avoid litterbox) pets and animals: cat(s) and dog(s) history of recent travel: No sexually active: Yes Smoking Status: Never smoker alcohol intake: never substance use type: does not use well-balanced diet: about half the time caffeine: Yes Type: coffee Number of servings: 1 eating out: 1-3 times/week during the past year weight has: remained stable what type of physical activity do you participate in: other details: pilates,strength training light wt frequency: 1-2 times per week duration: 15-30 minutes/day kaleb/denominational: Buddhism seatbelt use: always do you feel safe at home: Yes additional social history: [employer] History 2 Elective abortions Hx Para 0 Spontaneous abortions 1 Hx # Term Pregnancies Ectopic pregnancies Hx # Pregnancies Multiple births # of living children 0 Past Pregnancies Del. Date Name GA/Weeks Outcome Route Bth Weight Infant Gen Labor Lgth Anesthesia Del [place] Provider FOB 07/30/24 miscarriage 6 spontaneous HPI 35 WK 6D OB Details: CHARLIE MÁRUQEZ is a 25 year old who presents for routine OB visit. OB Visit [place] Calculator Estimated Delivery Date Method Current WG Current Estimate 10/07/25 LMP (Certain) 35w 6d Expected Delivery Route/Plan Labor Preferences- CB/BF classes: no labor support person: Channing labor intervention preferences: minimal preferred but open pain management options preferred: limited but ok with epidural, open to touch, massage, guided breathing, open to prayer cut cord/dad catch: cord : yes PP control planned: [] discussed possible routes of delivery and associated risks: discussed possible delivery modalities and possible indications for each including R/B/A of , VAVD, and CS. questions answered. special requests: [] Specific Issue/Plans Covid status: [] Flu vaccine: declines Tdap vaccine: declines Rhogam: NA LARC form signed: yes movement and labor precautions reviewed. Problem list reviewed and updated with the most current plan of care details and appropriate orders placed. Relevant counseling for the gestational age provided. Continue routine care and follow up unless otherwise noted in visit notes/problem list details Initial Weight: 168 lb Date -???-???-???-???-???-? ??-???-???-???-???-??? -???- EGA Weight BP Urine Prot -???-???-???-???-???-? ??-???-???-???-???-??? -???- Glucose FHR FuHt Pres Dilation -???-???-???-???-???-? ??-???-???-???-???-??? -???- Effaced St Visit Note 08/12/25 -???-???-???-???-???-? ??-???-???-???-???-??? -???- 32w 0d 168 lb (+0 oz) 118/75 -???-???-???-???-???-? ??-???-???-???-???-??? -???- 140 31 -???-???-???-???-???-? ??-???-???-???-???-??? -???- KW- DANICA from My [facility]BG[facility]. Records requested. reports normal labs/glucose and US. LARC today. 08/26/25 -???-???-???-???-???-? ??-???-???-???-???-??? -???- 34w 0d 169 lb 8 (more content not included)... Normal [facility] OB Limited With Biometricson 09-02-2025 OB Limited With Biometrics [facility] Imaging Services [address] [place] [address] OB Limited With Biometrics MR#: [id number] Acct: [id number] Name: CHARLIE MÁRQUEZ Rep #: [id number] : 2000 F 25 From: Reynaldo mclaughlin MD PCP: Care Physician,No Primary Status: [facility] Study: OB Limited With Biometrics Date of Exam: 09/02 Exam# [id number] Ordering Dr: Addie Valdez SULFIDE HEAD OPERATOR SULFIDE HEAD OPERATOR -C PROCEDURE: OB LIMITED WITH BIOMETRICS 09/02/2025 REASON FOR EXAM: GROWTH TECHNIQUE: Procedure Code: USOBGROWTH Modality: US Procedure: OB LIMITED WITH BIOMETRICS COMPARISON: None FINDINGS Number: 1 Position: Vertex Placental Position: Anterior and not low-lying Placental Abnormalities: No evidence of previa. DIMENSIONS: Biparietal Diameter: 8.3 cm: 33 weeks and 3 days: 14 percentile/ Head Circumference: 31.2 cm: 34 weeks and 6 days: 16 percentile/ Abdominal Circumference: 30.5 cm: 34 weeks and 3 days: 41 percentile/ Femur Length: 6.4 cm: 33 weeks and 0 days: 5 percentile/ ESTIMATED WEIGHT: 2322 g plus/-340 g ESTIMATED WEIGHT PERCENTILE (24+ weeks): 21 ESTIMATED GESTATIONAL AGE: Baseline: 35 weeks and 0 days By Ultrasound: October 07, 2025 ESTIMATED DATE OF DELIVERY: Baseline: 33 weeks and 5 days By Ultrasound: October 16, 2025 BIOPHYSICAL ASSESSMENT: Amniotic Fluid Volume: 4.1 cm Amniotic Fluid Index: 12 cm (8-24 cm normal range) Cardiac Motion: 150 beats per minute (average) Trunk and Limb Motion: Present. MATERNAL ANATOMY: Adnexa: Neither maternal ovary is successfully identified. US/OB Limited With Biometrics IMPRESSION: Single live intrauterine gestation with a mean gestational age of 33 weeks and 5 days. Reading Location: [place] [address] CC: FAHAD Valdez; No Primary Care Physician Mortgage Closer: Signed Normal [facility] - Chemistry and C hemistry - challengeOrdered By: Addie Valdez on 08-26-2025 Glucose Ql (U) Negative [facility] - UrinalysisOrder ed By: Addie Valdez on 08-26-2025 Protein Ql (U) Negative [facility] Pit Crane Operator Office Visit Reporton 08-26-2025 Pit Crane Operator Office Visit Report [facility] [address], [address] [place] [address] OFFICE VISIT Date of Service: 08/26/25 MR#: [id number] Acct: [id number] Name: CHARLIE MÁRQUEZ Rep #: [id number] : 2000 Provider: FAHAD mckeon Age/Sex: 25/F Location[place] [facility] Status: Signed Intake Vital Signs 08/12/25 08:24 08/26/25 09:53 Height 5 ft 9 in 5 ft 9 in Weight: 169 lb 8 oz BMI 25.0 BP 120/80 Intake Visit Reasons: 34 WK OB Psychiatric Nurse Practitioner Required: No Is patient in pain?: No Allergies Latex, Natural Rubber Allergy (Mild, Verified 08/26/25 09:55) Rash sertraline Adverse Reaction (Intermediate, Verified 08/26/25 09:55) Other Medications ???Medication ???Instructions ???Recorded ???Confirmed ???Type multivitamin no.47-iron fum 27 cap PO 08/11/25 08/26/25 History mg-folate no.1 1 mg-dha 300 mg capsule (PNV-DHA) breast pump #1 ea 08/18/25 08/26/25 Rx Last Menstrual Period: 12/31/24 Zika: Zika virus screening: Negative : Yes PFSH PFSH Surgical History Hx of tonsillectomy [place] teeth extracted Family History Mother Diabetes Cancer, Onset Age: 40 thyroid cancer Family history of recurrent miscarriage 3 miscarriages Father Hypertension Maternal Grandmother , at 55 yo Breast cancer, Onset Age: 50 Brother Spina bifida Social History adopted: No household members: spouse housing: house current occupational status: previously employed 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 occupational exposures/hazards: No pets and animals: Yes (Avoid litterbox) pets and animals: cat(s) and dog(s) history of recent travel: No sexually active: Yes Smoking Status: Never smoker alcohol intake: never substance use type: does not use well-balanced diet: about half the time caffeine: Yes Type: coffee Number of servings: 1 eating out: 1-3 times/week during the past year weight has: remained stable what type of physical activity do you participate in: other details: pilates,strength training light wt frequency: 1-2 times per week duration: 15-30 minutes/day kaleb/denominational: Buddhism seatbelt use: always do you feel safe at home: Yes additional social history: [employer] History 2 Elective abortions Hx Para 0 Spontaneous abortions 1 Hx # Term Pregnancies Ectopic pregnancies Hx # Pregnancies Multiple births # of living children 0 Past Pregnancies Del. Date Name GA/Weeks Outcome Route Bth Weight Gen Labor Lgth Anesthesia Del Locatn Provider FOB 07/30/24 miscarriage 6 spontaneous HPI 34 WK OB Details: CHARLIE MÁRQEUZ is a 25 year old who presents for routine OB visit. OB Visit [place] Calculator Estimated Delivery Date Method Current WG Current Estimate 10/07/25 LMP (Certain) 34w 0d Expected Delivery Route/Plan Labor Preferences- CB/BF classes: no labor support person: Channing labor intervention preferences: [] pain management options preferred: limited but ok with epidural cut cord/dad catch: cord : yes PP control planned: [] discussed possible routes of delivery and associated risks: [] special requests: [] Specific Issue/Plans Covid status: [] Flu vaccine: declines Tdap vaccine: declines Rhogam: NA LARC form signed: yes Problem list reviewed and updated with the most current plan of care details and appropriate orders placed. Relevant counseling for the gestational age provided. Continue routine care and follow up unless otherwise noted in visit notes/problem list details Initial Weight: 168 lb Date -???-???-???-???-???-? ??-???-???-???-???-??? -???- EGA Weight BP Urine Prot -???-???-???-???-???-? ??-???-???-???-???-??? -???- Glucose FHR FuHt Pres Dilation -???-???-???-???-???-? ??-???-???-???-???-??? -???- Effaced St Visit Note 08/12/25 -???-???-???-???-???-? ??-???-???-???-???-??? -???- 32w 0d 168 lb (+0 oz) 118/75 -???-???-???-???-???-? ??-???-???-???-???-??? -???- 140 31 -???-???-???-???-???-? ??-???-???-???-???-??? -???- KW- DANICA from My OBG[facility]. Records requested. reports normal labs/glucose and US. LARC today. 08/26/25 -???-???-???-???-???-? ??-???-???-???-???-??? -???- 34w 0d 169 lb 8 oz (+1 lb 8 oz) 120/80 Negative -???-???-???-???-???-? ??-???-???-???-???-??? -???- Negative 147 32 -???-???-???-???-???-? ??-???-???-???-???-??? -???- MH-No VB, LO F. Good Fm Declines tdap, flu. Larc ACOG First Trimester First Trimester: Desire for , Alcohol, Tobacco Cessation, Illicit/Recreational Drug/Substance Use, Intimat (more content not included)... Normal [facility] Urine Cultureon 08-13-2025 URC Culture exhibits no growth. Normal [facility] Comment on above: Performed By: #### M [id number] #### [facility] [address] [place], [address] Pit Crane Operator Office Visit Reporton 08-12-2025 Pit Crane Operator Office Visit Report [facility] [address], [address] [place] [address] OFFICE VISIT Date of Service: 08/12/25 MR#: [id number] Acct: [id number] Name: CHARLIE MÁRQUEZ Rep #: [id number] : 2000 Provider: TROY Stiles ams Age/Sex: 25/F Location: [facility] [place] Status: Signed Intake Vital Signs 08/12/25 08:24 Height 5 ft 9 in Weight: 168 lb BMI 24.7 BP 118/75 Intake Visit Reasons: 32wk OB DANICA Psychiatric Nurse Practitioner Required: No Is patient in pain?: No Allergies Latex, Natural Rubber Allergy (Mild, Verified 08/12/25 08:33) Rash sertraline Adverse Reaction (Intermediate, Verified 08/12/25 08:33) Other Medications ???Medication ???Instructions ???Recorded ???Confirmed ???Type multivitamin no.47-iron fum 27 cap PO 08/11/25 08/11/25 History mg-folate no.1 1 mg-dha 300 mg capsule (PNV-DHA) Last Menstrual Period: 12/31/24 Zika: Zika virus screening: Negative : No Have you fallen in the past year?: No PFSH PFSH Surgical History Hx of tonsillectomy [place] teeth extracted Family History Mother Diabetes Cancer, Onset Age: 40 thyroid cancer Family history of recurrent miscarriage 3 miscarriages Father Hypertension Maternal Grandmother , at 55 yo Breast cancer, Onset Age: 50 Brother Spina bifida Social History adopted: No household members: spouse housing: house current occupational status: previously employed 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 occupational exposures/hazards: No pets and animals: Yes (Avoid litterbox) pets and animals: cat(s) and dog(s) history of recent travel: No sexually active: Yes Smoking Status: Never smoker alcohol intake: never substance use type: does not use well-balanced diet: about half the time caffeine: Yes Type: coffee Number of servings: 1 eating out: 1-3 times/week during the past year weight has: remained stable what type of physical activity do you participate in: other details: pilates,strength training light wt frequency: 1-2 times per week duration: 15-30 minutes/day kaleb/denominational: Buddhism seatbelt use: always do you feel safe at home: Yes additional social history: [employer] History 2 Elective abortions Hx Para 0 Spontaneous abortions 1 Hx # Term Pregnancies Ectopic pregnancies Hx # Pregnancies Multiple births # of living children 0 Past Pregnancies Del. Date Name GA/Weeks Outcome Route Bth Weight Gen Labor Lgth Anesthesia Del Locatn Provider FOB 07/30/24 miscarriage 6 spontaneous HPI 32wk OB DANICA Details: CHARLIE MÁRQUEZ is a 25 year old who presents for New OB visit. OB Visit [place] Calculator Estimated Delivery Date Method Current WG Current Estimate 10/07/25 LMP (Certain) 32w 0d Comments: HIV: Urine Culture: Sequential Screen: NIPT Screen: Estimated Due Date: 10/07/25 Expected Delivery Route/Plan Labor Preferences- CB/BF classes: [] labor support person: [] labor intervention preferences: [] pain management options preferred: [] cut cord/dad catch: [] : [] PP control planned: [] discussed possible routes of delivery and associated risks: [] special requests: [] Specific Issue/Plans Covid status: [] Flu vaccine: [] Tdap vaccine: [] Rhogam: [] LARC form signed: [] Problem list reviewed and updated with the most current plan of care details and appropriate orders placed. Relevant counseling for the gestational age provided. Continue routine care and follow up unless otherwise noted in visit notes/problem list details Initial Weight: 168 lb Date -???-???-???-???-???-? ??-???-???-???-???-??? -???- EGA Weight BP Urine Prot -???-???-???-???-???-? ??-???-???-???-???-??? -???- Glucose FHR FuHt Pres Dilation -???-???-???-???-???-? ??-???-???-???-???-??? -???- Effaced St Visit Note 08/12/25 -???-???-???-???-???-? ??-???-???-???-???-??? -???- 32w 0d 168 lb (+0 oz) 118/75 -???-???-???-???-???-? ??-???-???-???-???-??? -???- 140 31 -???-???-???-???-???-? ??-???-???-???-???-??? -???- KW- DANICA from My OBGYN. Records requested. reports normal labs/glucose and US. LARC today. Menstrual History Last Menstrual Period: 12/31/24 Reported LMP: definite Normal amount/duration: Yes Frequency in days: 28 On hormonal BC at conception: No hCG+: 01/25/25 Antepartum Record Genetic Screening: Congenital Heart Defect: Other, Neural Tube Defect: Patient (Brother- Spina bifida- No genetic, carrier or AFP), Hemoglobinopathy Or Carrier: Other, Cystic Fibrosis: Other, Chromosome Abnormality: Other (more content not included)... [facility] Urine cultureOrdered By: Danis Dodge on 08-12-2025 Bacteria identified Cx Nom (U) Culture exhibits no growth. [facility] Bacteria identified Cx Nom (U) Culture exhibits no growth. [facility] - Hematology and Cell countson 07-02-2025 Hematocrit (Bld) [Volume fraction] 39.3 % [facility] MCV (RBC) [Entitic vol] 94 fL [facility] No Panel Informationon 07-02 Platelet Count (Clinic) 247 g/gL [facility] No Panel Informationon 05-28 Reference Lab Test Name normal [facility] ED MED ADMINISTRATION DETAIL on 11-04-2024 ED MED ADMINISTRATION DETAIL [employer] Medication Administration Record [address] [place] [address] [id number] 10/02/2024 Patient: CHARLIE MÁRQUEZ Sex: Female : 2000 Age: 24y MEASUREMENTS: Wt: 72.6 kg, Ht/Juanito: 69.0 in, BMI: 23.63 ALLERGIES: sertraline Medication Ordered Medication Administration Date/Time 1 of 1 Normal [facility] ED NURSES CLINICAL NOTEon ED NURSES CLINICAL NOTE Nurse Narrative Nurse Clinical Narrative [address] [place] [address] [id number] 10/02/2024 Patient: CHARLIE MÁRQUEZ Sex: Female : 2000 Age: 24y Disposition: Discharge to Home Disposition Decision Time: 16:20 10/02/2024 Departure Time: 16:50 10/02/2024 TRIAGE Arrived by private vehicle, and accompanied by family. Triage time: 15:05 10/02/2024. Acuity: LEVEL 3. Chief Complaint: VAGINAL BLEED and ABDOMINAL CRAMPS and PASSING TISSUE. This started yesterday. -- 15:14 10/02/24 SCOOBY Joseph R.N. 15:05 10/02/24. SEPSIS SCREEN: NEGATIVE. SIRS criteria negative. No possible sources of infection. -- 15:15 10/02/24 SCOOBY Joseph R.N. 15:13 10/02/24. BP: 134/86 MAP: 102. HR: 81. RR: 16. O2 saturation: 100% Temperature: 98.1 F. Pain level now 4/10. Describes the pain as (cramping). Intermittent. -- 15:14 10/02/24 SCOOBY Joseph R.N. Measurements: 15:13 10/02/24 Wt: 72.6 kg, Ht/Juanito: 69.0 in, BMI: 23.63 -- 15:13 10/02/24 SCOOBY Joseph R.N. Medications: no known home medications -- 15:11 10/02/24 SCOOBY Joseph R.N. 1 of 3 Nurse Narrative Allergies: sertraline. Nosebleed -- 15:11 10/02/24 SCOOBY Joseph R.N. Home Medications/Allergy Information Source: patient -- 15:11 10/02/24 SCOOBY Joseph R.N. Problems: no known problem -- 15:12 10/02/24 SCOOBY Joseph R.N. ADDITIONAL SURGERIES: Adenoidectomy -- 15:11 10/02/24 SCOOBY Joseph R.N. Tonsillectomy -- 15:11 10/02/24 SCOOBY Joseph R.N. History 15:05 10/02/24. PAST MEDICAL HX: Immunizations: up-to-date. Last normal menstrual period- . Currently . SOCIAL HX: Never smoker. No alcohol use or drug use. The patient has not traveled outside the [place] Infectious disease exposure: No infectious disease exposure. ABUSE ASSESSMENT: The patient answered "yes" to the question(s) "Do you feel safe in your home?" and "no" to the question(s) "Are you afraid to go home?". Abuse denied. No suspicion of abuse. SELF HARM ASSESSMENT: Self harm assessment was performed. The patient answered "no" to the question(s) "Have you recently felt down, depressed, or hopeless?" and "Do you have thoughts of harming or killing yourself?". FALL RISK ASSESSMENT: Fall risk assessment completed. No risk factors identified. -- 15:14 10/02/24 SCOOBY Joseph R.N. Interventions 15:05 10/02/24. Advanced care plan (Full Code). -- 15:14 10/02/24 SCOOBY Joseph R.N. 2 of 3 Nurse Narrative PHYSICAL ASSESSMENT 15:52 10/02/24. ( Pt had a recent miscarriage in July, she didn't have a D C. Pt's last period was 08/31. Pt is approx. 3 days late. She hasn't recd a positive test. Pt states she feels like she did with her last miscarriage. Pt started she has gone through 2 pads from yesterday to today. No clots.). GENERAL / NEURO / PSYCH: Alert. Oriented X 4. Appears in no acute distress. RESPIRATORY: Respirations not labored. GI / : Vaginal bleeding present .2 pads per hour (2 from yesterday to today). ( Pt had a miscarriage in July, where she was 6 weeks along.). SKIN: Skin is warm and dry. -- 17:01 10/02/24 SCOOBY Márquez R.N. NURSING PROGRESS NOTES 15:14 10/02/24. Site #1 started via IV in the right antecubital space with an 18g angiocath with aseptic technique and good blood return; 1 attempt. Blood drawn: rainbow set tube(s) and blood bank tube. Labeled in the presence of the patient and sent to the lab. Saline lock flushed with 5 mL saline. -- 15:17 10/02/24 EST Raad Porras E.M.T.-P. 15:27 10/02/24. Patient transported to radiology and sonogram by stretcher with irrigation service technician. -- 15:27 10/02/24 SCOOBY Joseph R.N. DISPOSITION / DISCHARGE 16:15 10/02/24. HR: 97 bpm. O2 saturation: 99%. -- 17:04 10/02/24 SCOOBY Márquez R.N. 16:45 10/02/24. Site #1 removed upon discharge. Catheter intact. Bandaid applied. -- 17:03 10/02/24 SCOOBY Márquez R.N. 16:47 10/02/24. BP: 119/84 MAP: 94 mmHg. HR: 69 bpm. -- 17:04 10/02/24 SCOOBY Márquez R.N. 16:50 10/02/24. Condition at departure: unchanged. No learning barriers present. Discharge instructions provided and reviewed with the patient and spouse. Reviewed warnings (reasons to come back). Reviewed referral to an tree expert. Patient and spouse verbalized understanding. The patient was discharged by the physician. The patient was discharged home and accompanied by spouse. The patient left ambulatory and via private vehicle. Spouse driving. -- 17:06 10/02/24 SCOOBY Márquez R.N. Departure time: 16:50 10/02/2024. -- 17:06 10/02/24 SCOOBY Márquez R.N. (Electronically signed by Olga Márquez R.N. 10/02/24 17:07:07 EST) Generated by [facility] 3 of 3 Normal [facility] ED ORDER SHEET (CPOE ONLY)on 11-04-2024 ED ORDER SHEET (CPOE ONLY) Order Sheet Order Sheet [address] [address] [id number] 10/02/2024 Patient: CHARLIE MÁRQUEZ Sex: Female : 2000 Age: 24y MEASUREMENTS: Wt: 72.6 kg, Ht/Juanito: 69.0 in, BMI: 23.63 ALLERGIES: sertraline MEDICATION/IV/DRIP/FLU ID ORDERS Order Description Priority Entered Acknowledged Completed LAB ORDERS Order Description Priority Entered Acknowledged Collected Completed HCG, Quant Serum Stat Stat 15:13 10/02/2024 15:17 10/02/2024 15:17 10/02/2024 Raad Chandler Bryan Parker, M.D. E.M.T.-PGriselda CastroT.-P. CBC w Diff Stat Stat 15:13 10/02/2024 15:17 10/02/2024 15:17 10/02/2024 Raad Chandler Bryan Parker, M.D. E.M.TGriselda-P. EJudyT.-P. BMP Stat Stat 15:13 10/02/2024 15:17 10/02/2024 15:17 10/02/2024 Raad Chandler Bryan Parker, M.D. E.M.TGriselda-P. MatthewT.-P. Blood Bank Order Stat Stat 15:13 10/02/2024 15:17 10/02/2024 15:17 10/02/2024 Raad Chandler Bryan Parker, 1 of 2 Order Sheet Sunil CastroTGriselda-P. E.MGriseldaT.-P. DIAGNOSTIC STUDY ORDERS Order Description Priority Entered Acknowledged Completed US OB<14WK Single Gestation Stat 15:13 10/02/2024 15:17 16:41 Stat Raad Unger M.D. 10/02/2024 10/02/2024 Olga Yancey, MatthewT.-P. R.NGriselda Order Comments: 15:13 10/02/2024: Status: . Raad Unger M.D. Reason for Study: Abnormal Bleeding STAFF ORDERS Order Description Priority Entered Acknowledged Collected Completed [Electronically signed by aRad Unger M.D. (11/04/2024 08:14 EST)] 2 of 2 Normal [facility] ED PHYSICIAN CLINICAL REPORT on 11-04-2024 ED PHYSICIAN CLINICAL REPORT Narrative Physician Clinical Narrative [address] [address] [id number] 10/02/2024 Patient: CHARLIE MÁRQUEZ Sex: Female : 2000 Age: 24y Disposition: Discharge to Home Disposition Decision Time: 16:20 10/02/2024 Departure Time: 16:50 10/02/2024 Measurements Wt: 72.6 kg, Ht/Juanito: 69.0 in, BMI: 23.63 Initial Vital Sign Measured Time BP MAP HR RR O2Sat ETCO2 Temp Pain GCS RTS 15:11 10/02/2024 134/86 105 80 Time Seen: late entry - 14:45 10/02/2024. HISTORY OF PRESENT ILLNESS Chief Complaint: VAGINAL BLEEDING. This started today. The patient has had vaginal bleeding. No contractions, pelvic pain, complaint of leakage of fluid or vaginal discharge. Last normal menstrual period- 1 months ago. (Patient believes that she was . She last had her last menses 32 days ago. She is concerned because she had a spontaneous last year when she was 6 weeks . She believed that she was 4 days and that her vaginal bleeding was a miscarriage. She is also concerned because it looked like there were some extra clots. Other than that it is the same dark red color as her normal menses. She denies any abdominal cramping. She states it otherwise feels like her. . Denies any fever, chills, nausea, vomiting, chest pain, shortness of breath. She denies any increase in bleeding. She has only been spotting today.). 1 of 9 Narrative REVIEW OF SYSTEMS see associated HPI. Status: . PAST HISTORY See nurses notes. no known problem Surgeries: Adenoidectomy Tonsillectomy Medications: no known home medications Allergies: sertraline. Nosebleed Home Medications/Allergy Information Source: patient - Jadyn Joseph R.N., 10/02/2024 15:11 EST ADDITIONAL NOTES The nursing notes have been reviewed. PHYSICAL EXAM Vital Signs: Have been reviewed. HEENT: Normal external inspection. ENT: Pharynx normal. Neck: Neck supple. CVS: Heart sounds normal. Respiratory: No respiratory distress. Painless inspiration. Breath sounds normal. Chest nontender. 2 of 9 Narrative Abdomen: Soft and nontender. Bowel sounds normal. Pelvic: (Vaginal exam deferred. HCG is less than 1. Patient is not .). LABS, X-RAYS, AND EKG Laboratory Tests: BMP with eGFR Final CATE: 10/02/2024 15:14:00 EST MsgRcvd: 10/02/2024 16:13 EST Lab Test Result Reference Status Received Comments BASIC 10/02/2024 BMP with eGFR Final METABOLIC 16:13 EST PANEL 10/02/2024 SODIUM 142 mmol/l 136 - 145 Final 16:13 EST 10/02/2024 POTASSIUM 3.7 mmol/L 3.5 - 5.1 Final 16:13 EST 10/02/2024 CHLORIDE 103 mmol/L 98 - 107 Final 16:13 EST 10/02/2024 CO2 27.8 mmol/L 21.0 - 32.0 Final 16:13 EST 10/02/2024 GLUCOSE 91 mg/dl 74 - 106 Final 16:13 EST 10/02/2024 BUN 17 mg/dl 7 - 18 Final 16:13 EST 10/02/2024 CREATININE 0.82 mg/dl 0.55 - 1.02 Final 16:13 EST 10/02/2024 CALCIUM 8.9 mg/dl 8.5 - 10.1 Final 16:13 EST 3 of 9 Narrative 10/02/2024 ANION GAP 15 mmol/L 10 - 20 Final 16:13 EST 10/02/2024 AGE 24 years Final 16:13 EST 10/02/2024 eGFR >60 ML/MINUTE 60 - 999 Final 16:13 EST ACCORDING TO THE NATIONAL KIDNEY DISEASE EDUCATION PROGRAM(NKDE), A NORMAL eGFR IS A VALUE GREATER THAN OR EQUAL TO 60 ML/MIN/1.73 SQ METERS. 10/02/2024 CHRONIC KIDNEY eGFR(AA) >60 ML/MINUTE 60 - 999 Final 16:13 EST DISEASE: <60mL/MIN/1.73 SQ METERS KIDNEY FAILURE: <15mL/MIN/1.73 SQ METERS THIS TEST SHOULD ONLY BE USED FOR PATIENTS 18 YEARS OF AGE AND OLDER. CBC + DIFF Final Narrative CATE: 10/02/2024 15:14:00 EST MsgRcvd: 10/02/2024 15:53 EST Lab Test Result Reference Status Received Comments 10/02/2024 15:53 CBC-COMPLETE CBC + DIFF Final EST BLOOD COUNT 10/02/2024 15:53 WBC 8.5 x 10/UL 4.5 - 10.8 Final EST 10/02/2024 15:53 RBC 5.11 x 10/UL 4.10 - 5.30 Final EST 10/02/2024 15:53 HEMOGLOBIN 15.3 g/dl 12.0 - 16.0 Final EST 10/02/2024 15:53 HEMATOCRIT 45.2 % 34.0 - 46.0 Final EST 10/02/2024 15:53 MCV 89 fl 80 - 99 Final EST 10/02/2024 15:53 MCH 30 pg 27 - 33 Final EST 10/02/2024 15:53 MCHC 34 X10 3 32 - 36 Final EST 10/02/2024 15:53 RDW/CV 13.3 % 12.0 - 15.6 Final EST 10/02/2024 15:53 PLATELET 237 x10/UL 150 - 450 Final EST 10/02/2024 15:53 AUTOMATED MPV 7.7 fl 6.6 - 10.5 Final EST DIFFERENTIAL 10/02/2024 15:53 NEUT % 53.1 % 46.0 - 76.0 Final EST 10/02/2024 15:53 LYMPH % 38.2 % 20.0 - 45.0 Final EST 5 of 9 Narrative 10/02/2024 15:53 MONOS % 6.7 % 0.0 - 10.0 Final EST 10/02/2024 15:53 EO % 1.8 % 0.0 - 7.0 Final EST 10/02/2024 15:53 BASO % 0.2 % 0.0 - 2.0 Final EST 3.25 x10/UL 10/02/2024 15 (more content not included)... Normal [facility] ED SUPER BILLon 11-04-2024 ED SUPER BILL [address] [address] [id number] 10/02/2024 Patient: CHARLIE MÁRQUEZ Sex: Female : 2000 Age: 24y Item Professional Category Description Facility Code Code Quantity Fee Total Nurse/E/M EMERGENCY 137168 1 $0.00 $0.00 DEPARTMENT VISIT HIGH/URGENT SEVERITY (26168-47) Grand Total $0.00 Providers Raad Unger M.D. Chief Complaint VAGINAL BLEEDING. Principal Diagnosis Expected vaginal bleeding. 1 of 1 Normal [facility] ED VISIT SUMMARYon ED VISIT SUMMARY Visit Overview Visit Overview [facility] [address] [place] [address] [phone] 10/02/2024 Patient: CHARLIE MÁRQUEZ Sex: Female : 2000 Age: 24y 11/04/2024 08:14 AM EST ED Arrival:15:06 10/02/2024 EST Status: Recent Travel:no Language:eng Adv Directive: Isolation Status: Ethnicity:N Fall Risk:no risk Infectious Disease Exposure:no Measurements:5'9" / 175.3 Self-Harm Status:risk Sepsis Screen:negative cm 160.0 lb / 72.6 kg Chief Complaint:ABDOMINAL CRAMPS, PASSING TISSUE, and VAGINAL BLEED ALLERGIES sertraline HOME MEDICATIONS None PAST MEDICAL HISTORY / PROBLEMS Currently Immunizations: up-to-date 1 of 3 Visit Overview Last normal menstrual period- None See nurses notes PAST SURGICAL HISTORY Adenoidectomy Tonsillectomy SOCIAL HISTORY Smoking status: No Alcohol use: No Drug use: No ED COURSE MEDICATIONS GIVEN IN EMERGENCY DEPARTMENT IV SITE INFORMATION INTAKE OUTPUT REASSESMENT (most recent) 15:52 10/02/24. ( Pt had a recent miscarriage in July, she didn't have a D C. Pt's last period was 08/31. Pt is approx. 3 days late. She hasn't recd a positive test. Pt states she feels like she did with her last miscarriage. Pt started she has gone through 2 pads from yesterday to today. No clots.). GENERAL / NEURO / PSYCH: Alert. Oriented X 4. Appears in no acute distress. RESPIRATORY: Respirations not labored. GI / : Vaginal bleeding present .2 pads per hour (2 from yesterday to today). ( Pt had a miscarriage in July, where she was 6 weeks along.). SKIN: Skin is warm and dry. VITAL SIGNS First Vitals Last Vitals Temp 15:11 10/02/24 Temp 16:47 10/02/24 BP 15:11 10/02/24 134/86 BP 16:47 10/02/24 119/84 2 of 3 Visit Overview First Vitals Last Vitals HR 15:11 10/02/24 80 HR 16:47 10/02/24 69 RR 15:11 10/02/24 RR 16:47 10/02/24 O2 Sat 15:11 10/02/24 O2 Sat 16:47 10/02/24 Pain 15:11 10/02/24 Pain 16:47 10/02/24 ETCO2 15:11 10/02/24 ETCO2 16:47 10/02/24 GCS 15:11 10/02/24 GCS 16:47 10/02/24 RTS 15:11 10/02/24 RTS 16:47 10/02/24 PROCEDURES NURSING INTERVENTIONS LABS / STUDIES LABS / STUDIES ORDERED Blood Bank Order BMP CBC w Diff HCG, Quant Serum US OB<14WK Single Gestation LABS / STUDIES PENDING IMPORT US OB INITIAL< 14 WEEKS; 1st GESTATION CLINICAL IMPRESSION 3 of 3 Normal [facility] ED VITALS FLOW SHEETon 11-04 ED VITALS FLOW SHEET Vitals Vital Sign Flow Sheet [address] [place] [address] [id number] 10/02/2024 Patient: CHARLIE MÁRQUEZ Sex: Female : 2000 Age: 24y Measurements Wt: 72.6 kg, Ht/Juanito: 69.0 in, BMI: 23.63 Measured Time BP MAP HR RR O2Sat ETCO2 Temp Pain GCS RTS 16:47 10/02/2024 119/84 94 69 16:20 10/02/2024 80 96% 16:15 10/02/2024 97 99% 16:10 10/02/2024 92 98% 16:10 10/02/2024 129/72 94 87 16:05 10/02/2024 72 99% 16:00 10/02/2024 80 97% 15:56 10/02/2024 120/78 88 73 15:55 10/02/2024 69 98% 15:50 10/02/2024 78 98% 15:45 10/02/2024 76 97% 15:40 10/02/2024 120/81 92 87 15:39 10/02/2024 71 99% 15:34 10/02/2024 74 99% 15:29 10/02/2024 89 100% 1 of 2 Vitals Measured Time BP MAP HR RR O2Sat ETCO2 Temp Pain GCS RTS 15:25 10/02/2024 132/83 102 71 15:22 10/02/2024 74 97% 15:17 10/02/2024 78 99% 15:13 10/02/2024 134/86 102 81 16 100% 98.1 F 4 15:12 10/02/2024 91 99% 15:11 10/02/2024 134/86 105 80 2 of 2 Normal [facility] BB TYPE & SCREENon 4 ABO A Normal [facility] Comment on above: Performed By: #### 2 [id number] ####[facility],[address] [place] [address] ANTIBODY SCR Negative Normal [facility] Comment on above: Performed By: #### 2 [id number] ####[facility],[address] [place] [address] BB TYPE & SCREEN Normal [facility] Comment on above: Result Comment: TYPE , Rh, AND SCREEN Performed By: #### 2 [id number] ####[facility],[address] [place] [address] Rh Nom (Bld) Positive [facility] Comment on above: Performed By: #### 2 79953 ####[facility],[address] [place] [address] BMP with eGFRon 10-02-2024 AGE 24 years Normal [facility] Comment on above: Performed By: #### 2 59425 #### [facility],[address] [place] [address] Anion gap [Moles/Vol] 15 mmol/L Normal 10 - 2 0 mmol/L [facility] Comment on above: Performed By: #### 2 59476 #### [facility],[address] [place] [address]15 BMP with eGFR Normal [facility] Comment on above: Result Comment: BASI C METABOLIC PANEL Performed By: #### 2 51604 #### [facility],[address] [place] [address] Calcium [Mass/Vol] 8.9 mg/dL Normal 8.5 - 10. 1 mg/dL [facility] Comment on above: Performed By: #### 2 59119 #### [facility],[address] [place] [address] Chloride [Moles/Vol] 103 mmol/L Normal 98 - 10 7 mmol/L [facility] Comment on above: Performed By: #### 2 34982 #### [facility],[address] [place], [place] [phone] CO2 [Moles/Vol] 27.8 mmol/L Normal 21.0 - 32.0 mmol/L [facility] Comment on above: Performed By: #### 2 84513 #### [facility],[address] [place] [address] Creatinine [Mass/Vol] 0.82 mg/dL Normal 0.55 - 1.02 mg/dL [facility] Comment on above: Performed By: #### 2 [id number] #### [facility],[address] [place], [place] [phone] GFR/1.73 sq M.predicted among non-blacks MDRD (S/P/Bld) [Vol rate/Area] mL/min/{1.73_m2} Normal 60 - 999 [facility] Comment on above: Performed By: #### 2 39042 #### [facility],[address] [place], [place] [phone] Result Comment: ACCO RDING TO THE NATIONAL KIDNEY DISEASE EDUCATION PROGRAM(NKDE), A NORMAL eGFR IS A VALUE GREATER THAN OR EQUAL TO 60 ML/MIN/1.73 SQ METERS. CHRONIC KIDNEY DISEASE: <60mL/MIN/1.73 SQ METERS KIDNEY FAILURE: <15mL/MIN/1.73 SQ METERS THIS TEST SHOULD ONLY BE USED FOR PATIENTS 18 YEARS OF AGE AND OLDER. Glucose [Mass/Vol] 91 mg/dL Normal 74 - 106 mg/dL [facility] Comment on above: Performed By: #### 2 18552 #### [facility],[address] [place] [address] Potassium [Moles/Vol] 3.7 mmol/L Normal 3.5 - 5.1 mmol/L [facility] Comment on above: Performed By: #### 2 45542 #### [facility],[address] [place] [address] Sodium [Moles/Vol] 142 mmol/L Normal 136 - 145 mmol/L [facility] Comment on above: Performed By: #### 2 74096 #### [facility],[address] [place] [address] Urea nitrogen [Mass/Vol] 17 mg/dL Normal 7 - 18 mg/dL [facility] Comment on above: Performed By: #### 2 65757 #### [facility],[address] [place] [address] CBC + DIFFon 10-02-2024 Baso # 0.02 x10EE3/UL Normal 0.00 - 0.10 [facility] Comment on above: Performed By: #### 2 11539 #### [facility],[address] [place] [address] Basophils/100 WBC (Bld) 0.2 % Normal 0.0 - 2.0 % [facility] Comment on above: Performed By: #### 2 20828 #### [facility],[address] [place] [address] CBC + DIFF Normal [facility] Comment on above: Result Comment: CBC- COMPLETE BLOOD COUNT Performed By: #### 2 19289 #### [facility],[address] [place] [address] EO # 0.16 x10EE3/UL Normal 0.00 - 0.50 [facility] Comment on above: Performed By: #### 2 30837 #### [facility],[address] [place], [place] [phone] Eosinophils/100 WBC (Bld) 1.8 % Normal 0.0 - 7.0 % [facility] Comment on above: Performed By: #### 2 61524 #### [facility],[address] [place] [address] Erythrocyte distribution width (RBC) [Ratio] 13.3 % Normal 12.0 - 15.6 % [facility] Comment on above: Performed By: #### 2 31271 #### [facility],[address] [place] [address] Hematocrit (Bld) [Volume fraction] 45.2 % Normal 34.0 - 46.0 % [facility] Comment on above: Performed By: #### 2 68568 #### [place] [address] Hemoglobin (Bld) [Mass/Vol] 15.3 g/dL Normal 12.0 - 16.0 g/dL [facility] Comment on above: Performed By: #### 2 93539 #### [facility],[address] [place] [address] Lymph # 3.25 x10EE3/UL High 0.80 - 2.80 [facility] Comment on above: Performed By: #### 2 82334 #### [facility],[address] [place], [place] [phone] Lymphocytes/100 WBC (Bld) 38.2 % Normal 20.0 - 45.0 % [facility] Comment on above: Performed By: #### 2 44953 #### [facility],[address] [place] [address] MANUAL DIFF N/A Normal [facility] Comment on above: Performed By: #### 2 39209 #### [facility],[address] [place] [address] MCH (RBC) [Entitic mass] 30 pg Normal 27 - 33 pg [facility] Comment on above: Performed By: #### 2 70563 #### [facility],[address] [place] [address] MCHC 34 X10 3 Normal 32 - 36 [facility] Comment on above: Performed By: #### 2 01875 #### [facility],[address] [place] [address] MCV (RBC) [Entitic vol] 89 fL Normal 80 - 99 fL [facility] Comment on above: Performed By: #### 2 84120 #### [facility],[address] [place] [address] Ripley # 0.57 x10EE3/UL Normal 0.20 - 1.00 [facility] Comment on above: Performed By: #### 2 24393 #### [facility],[address] [place] [address] MONOS % 6.7 % Normal 0.0 - 10.0 [facility] Comment on above: Performed By: #### 2 48308 #### [facility],[address] [place] [address] Morphology Pedro (Bld) [Interp] N/A Normal [facility] Comment on above: Performed By: #### 2 88652 #### [facility],[address] [place] [address] Neut # 4.51 x10EE3/UL Normal 1.50 - 7.10 [facility] Comment on above: Performed By: #### 2 16847 #### [facility],[address] [place] [address] Neutrophils/100 WBC (Bld) 53.1 % Normal 46.0 - 76.0 % [facility] Comment on above: Performed By: #### 2 86720 #### [facility],[address] [place] [address] PLATELET 237 x10EE3/UL Normal 150 - 450 [facility] Comment on above: Performed By: #### 2 49526 #### [facility],[address] [place] [address] Platelet mean volume (Bld) [Entitic vol] 7.7 fL Normal 6.6 - 10.5 fL [facility] Comment on above: Result Comment: AUTO MATED DIFFERENTIAL Performed By: #### 2 38521 #### [facility],[address] [place] [address] RBC 5.11 x 10EE6/UL Normal 4.10 - 5.30 [facility] Comment on above: Performed By: #### 2 72713 #### [facility],[address] [place] [address] WBC 8.5 x 10EE3/UL Normal 4.5 - 10.8 [facility] Comment on above: Performed By: #### 2 87310 #### [facility],[address] [place] [address] Laboratory - Blood bankon ABO group Nom (Bld) A Normal [facility] HospitalRed[facility]; [facility]. Work Phone: Blood group antibody screen Ql Negative Normal [facility] CenterFuntact[facility]; [facility] Hospital[facility]. Work Phone: Laboratory - Chemistry and C hemistry - challengeon 10-02-2024 GFR/1.73 sq M.predicted among blacks MDRD (S/P/Bld) [Vol rate/Area] mL/min/{1.73_m2} Normal 60 - 999 {ML/MINUTE} [facility] Center[facility].; [facility] [employer] [facility]. Work Phone: GFR/1.73 sq M.predicted MDRD (S/P/Bld) [Vol rate/Area] mL/min/{1.73_m2} Normal 60 - 999 {ML/MINUTE} [facility] [employer] [facility] DepartmentTer[facility].; [facility] Work Phone: HCG.beta subunit Qn m[IU]/mL Normal 0 - 6 m[iU]/mL [facility]; [facility] Work Phone: Laboratory - Hematology and Cell countson 10-02-2024 Basophils (Bld) [#/Vol] 0.02 {x10EE3/UL} Normal 0.00 - 0.10 {x10EE3/UL} [facility]; [facility] Work Phone: Eosinophils (Bld) [#/Vol] 0.16 {x10EE3/UL} Normal 0.00 - 0.50 {x10EE3/UL} [facility]; [facility] Hospital[facility] Work Phone: Lymphocytes (Bld) [#/Vol] 3.25 {x10EE3/UL} Abnormal 0.80 - 2.80 {x10EE3/UL} [facility]; [facility] Work Phone: MCHC (RBC) [Mass/Vol] 34 {X10_3} Normal 32 - 3 6 {X10_3} [facility]; [facility] Work Phone: Monocytes (Bld) [#/Vol] 0.57 {x10EE3/UL} Normal 0.20 - 1.00 {x10EE3/UL} [facility]; [facility] Work Phone: Monocytes/100 WBC (Bld) 6.7 % Normal 0.0 - 10.0 % [facility]; [facility] Work Phone: Neutrophils (Bld) [#/Vol] 4.51 {x10EE3/UL} Normal 1.50 - 7.10 {x10EE3/UL} [employer] [facility] DepartmentTeran[facility].; [employer] [facility] whodoyou [facility] [facility] DepartmentTeran[facility]. Work Phone: Platelets (Bld) [#/Vol] 237 {x10EE3/UL} Normal 150 - 450 {x10EE3/UL} [facility] [facility] DepartmentTer[facility].; [employer] [facility] whodoyou [facility] DepartmentTer[facility]. Work Phone: RBC (Bld) [#/Vol] 5.11 {x_10EE6/UL} Normal 4.10 - 5.30 {x_10EE6/UL} [facility] [facility] DepartmentTer[facility].; [facility]oonK[facility] [employer] [facility] [place] [employer] [facility] DepartmentTeranode. Work Phone: WBC (Bld) [#/Vol] 8.5 {x_10EE3/UL} Normal 4.5 - 10.8 {x_10EE3/UL} [facility] DepartmentTer[facility].; [employer] [facility] [employer]. Work Phone: No Panel Informationon 10-02 AGE 24 {years} Normal [employer].; [facility] [place] [employer] [facility] [facility] DepartmentTeran[facility]. Work Phone: BB TYPE Normal [facility] whodoyou [facility] DepartmentTeran[facility].; [employer] [facility] [employer]. Work Phone: BMP with eGFR Normal [employer]; [employer] [facility] [employer]. Work Phone: CBC + DIFF Normal [employer]; [employer] [facility] [employer]. Work Phone: PREG SERUM QUANTon 4 HCG QUANTITATIVE <1 Normal 0 - 6 [facility] Comment on above: Result Comment: Refe rence Range: Male: <5 Female: Non: <5 1 - 7 days : 5 - 50 1 - 2 weeks: 50 - 500 2 - 3 weeks: 100 - 5000 3 - 4 weeks: 500 - 10,000 4 - 5 weeks: 1000 - 50,000 5 - 6 weeks: 10,000 - 100,000 6 - 8 weeks: 15,000 - 200,000 2 - 3 months: 10,000 - 100,000 2ND TRIMESTER 3000-50,000 3RD TRIMESTER 1000-50,000 Performed By: #### 2 [id number] #### [facility],[address] [place] [address] US OB INITIAL< 14 WEEKS; 1st GESTATIONon 07-30-2024 US OB INITIAL< 14 WEEKS; 1st GESTATION [place] [address] Patient: CHARLIE MÁRQUEZ Phone#: : [phone] Age: 24 Gender: F Pt. Type: Out Account: [id number] Location: Ordering: SH[facility] ANTONIO Exam Date: 07/30/2024/13:07 Family Phys: MARTINA MODOY Charge Code: [id number] Physician: Morrill Order #: [id number] Dose#: PROCEDURE: OB INITIAL <14 WEEKS ULTRASOUND, TRANSABDOMINAL COMPARISON: None. INDICATIONS: First trimester bleeding TECHNIQUE: Transabdominal pelvic ultrasound examinations were performed. FINDINGS: GESTATIONAL SAC: Not present POLE: Not present YOLK SAC: Not present CARDIAC ACTIVITY: Not present UTERUS: The uterus is 6.9 x 4.7 x 3.3 centimeters. The endometrium is 8.4 millimeters in thickness. Small amount of fluid is present at the external os. ADNEXAE/OVARIES: Normal. CUL-DE-SAC: Small amount of free fluid is present. CERVICAL LENGTH: Not applicable CLINICAL AGE: 6 weeks 2 days SONOGRAPHIC AGE: Not applicable PLACENTA: Unable to visualize due to age. AMNIOTIC FLUID VOLUME: Normal for age. OTHER: Negative. CONCLUSION: 1. The endometrium is mildly thickened. There is no evidence of intrauterine gestation. Correlate with beta HCG level and follow-up evaluation if indicated. Early gestation versus spontaneous . 2. Small amount of free fluid is present in the cul-de-sac. Dictated by: Aniyah Blum MD on 07/30/2024 at 13:37 Approved by: Aniyah Blum MD on 07/30/2024 at 13:42 Normal [facility] Laboratory - Microbiology an d Antimicrobial susceptibilityon 02-19-2024 S. pneumoniae Ag LA Ql (Unsp spec) Negative Normal [facility]. SARS-CoV-2 (COVID-19) RNA BUBBA+probe Ql (Unsp spec) Negative Normal [facility]. Laboratory - Microbiology an d Antimicrobial susceptibilityon 02-06-2023 S. pneumoniae Ag LA Ql (Unsp spec) Positive Abnormal [facility]. CNOVon 12-06-2021 CNOV Office Visit (OBGYWM ) CHARLIE MÁRQUEZ ([id number]) 2000 F Date Time Provider Department 12/06/21 2:30 PM NARDA GIL During your visit today, we recorded the following information about you: Blood pressure Weight 110/66 75.8 kg Narda Gil APRN.CNP 12/06/2021 2:48 PM Ovi Denny presents for removal of IUD due to pain and possible future . UNIVERSAL PROTOCOL / SAFETY CHECKLIST Procedure to be Performed: IUD removal Sign In: A Moment of CARE was completed. Personnel directly involved with the procedure wore the appropriate PPE (Personal Protective Equipment). Patient/Surrogate Stated/Verified: PATIENT VERIFIED(optional for EMERGENT procedures): Patient name, Date of , Relevant allergies and The intended procedure Time Out Communication: Intended patient and procedure match the source documents. Consent documented and matches the intended procedure. Sign Out: SIGN OUT (optional for EMERGENT procedures): All instruments, equipment, possible retained foreign bodies accounted for. Post-procedure follow-up management communicated and Plan of Care Visit completed when applicable. Narda Gil APRN.CNP PROCEDURE: Speculum placed in vagina, IUD string visualized and grasped with ring forceps. ASSESSMENT/PLAN: IUD removed without difficulty, intact, and patient tolerated procedure well. Contraception plans: condoms Reviewed pre-conception guidelines including folic acid supplementation, optimal timing of intercourse, avoidance of smoking, alcohol, exposure to environmental chemicals and need for evaluation if not within 12 months. SUE Pedroza APRN.CNP 12/06/2021 2:44 PM Signed PNV with 1 mg of folic acid. Referring Provider: NARDA GIL [[id number]] Allergies As of Date: 12/06/2021 Noted Allergy Reaction LATEX 01/15/2017 2 - Rash SERTRALINE 07/25/2021 14 - Other: See Comments Comments: Nose bleeds Date Reviewed: 12/06/2021 Reviewed by: Narda Gil APRN.CNP - Fully Assessed Reason for Visit: IUD Removal [1950] Primary Visit Diagnosis:Encounter for IUD removal [Z30.432] Prescriptions as of 12/06/2021 - levonorgestrel (KYLEENA) 17.5 mcg/24 hrs (5 yrs) 19.5 mg IUD 1 Each by INTRAUTERINE route as directed. Problem List As Of Date: 12/06/2021 (None) Other instructions from your clinician: PNV with 1 mg of folic acid. Encounter Status:Closed by NARDA GIL on 12/06/21 [facility] CNOVon 11-23-2021 CNOV Office Visit (OBGYWM ) CHARLIE MÁRQUEZ ([id number]) 2000 F Date Time Provider Department 11/23/21 9:15 AM NARDA GIL During your visit today, we recorded the following information about you: Blood pressure Weight 110/68 74.8 kg Narda Gil APRN.CNP 11/23/2021 11:02 AM Signed Charlie Sykes Kaley is a 21 year old female who presents for problem visit continued cramping with IUD HPI: Continued cramping and spotting with Kyleena IUD. Had Mirena IUD removed also for continued cramping. Past OCP caused severe nausea and vomiting. She and are considering or a different form of contraception. OB History T0 L0 SAB0 IAB0 Ectopic0 Multiple0 Live Births0 Director Building History LMP: 08/16/2021, IUD Age at Menarche: Age at First : Age at Menopause: [employer] Building History Comments: Sexual Activity: Yes; Male Contraception: None PAST MEDICAL HISTORY Diagnosis Date - NEGATIVE MEDICAL HISTORY PAST SURGICAL HISTORY Procedure Laterality Date - KYLEENA IUD 08/22/2021 5 yr - TONSILLECTOMY HX FAMILY HISTORY Problem Relation Age of Onset - Thyroid Mother cancer - Diabetes Mother - Hypertension Father Social History Tobacco Use - Smoking status: Never Smoker - Smokeless tobacco: Never Used Vaping Use - Vaping Use: Never used Substance Use Topics - Alcohol use: No - Drug use: No Current Outpatient Medications Medication Sig - levonorgestrel (KYLEENA) 17.5 mcg/24 hrs (5 yrs) 19.5 mg IUD 1 Each by INTRAUTERINE route as directed. No current facility-administered medications for this visit. Allergies As of Date: 11/23/2021 Allergen Noted Reaction LATEX 01/15/2017 Rash SERTRALINE 07/25/2021 Other: See Comments Fully Assessed 11/23/2021 REVIEW OF SYSTEMS Allergies and current medication updated:Yes EXAM: BP 110/68 Wt 165 lb (74.8kg) LMP 08/16/2021 GENERAL: pleasant, female in no apparent distress CHEST: Normal inspiratory effort NEURO: alert and oriented x3,exam grossly non-focal ASSESSMENT/PLAN: 1. Pain due to intrauterine contraceptive device (IUD), subsequent encounter - ICD9: V58.89, 996.76, 338.18, ICD10: T83.84XD (primary diagnosis) - continued cramping with Kyleena, also had cramping with Mirena - REMOVE INTRAUTERINE DEVICE 2. Intermenstrual spotting due to intrauterine device (IUD), initial encounter ([facility]) - ICD9: 996.76, 626.6, ICD10: T83.83XA, N92.3 - REMOVE INTRAUTERINE DEVICE 3. General counseling and advice for contraceptive management - ICD9: V25.09, ICD10: Z30.09 - Discussed contraceptive options with R/B/A. Pt will consider natural family planning with use of ovulation tracker, condoms and either Phexxi or VCF strips, Nuvaring or Nexplanon Follow-up at IUD removal. Narda Gil APRN.NATHANAEL I spent a total of 20 minutes on the date of the service which included preparing to see the patient, [id number] patient care, completing clinical documentation, obtaining and/or reviewing separately obtained history, performing a medically appropriate examination, counseling and educating the patient/family/caregiv er and ordering medications, tests, or procedures. Referring Provider: SELF [200] Allergies As of Date: 11/23/2021 Noted Allergy Reaction LATEX 01/15/2017 2 - Rash SERTRALINE 07/25/2021 14 - Other: See Comments Comments: Nose bleeds Date Reviewed: 11/23/2021 Reviewed by: Narda Gil APRN.MANAGER MECHANICAL MAINTENANCE - Fully Assessed Reason for Visit: Discussion [813] Cmt: iud removal Primary Visit Diagnosis:Pain due to intrauterine contraceptive device (IUD), subsequent encounter [T83.84XD] Other Visit Diagnoses:Intermenstru al spotting due to intrauterine device (IUD), initial encounter (HCC) [T83.83XA, N92.3] General counseling and advice for contraceptive management [Z30.09] Order(s):REMOVE INTRAUTERINE DEVICE [[id number]] Order #: [id number] Prescriptions as of 11/23/2021 - levonorgestrel (KYLEENA) 17.5 mcg/24 hrs (5 yrs) 19.5 mg IUD 1 Each by INTRAUTERINE route as directed. Problem List As Of Date: 11/23/2021 (None) Encounter Status:Closed by NARDA GIL on 11/23/21 [facility] 11-22-2021 ELDON Telephone (OBGYWM) CHARLIE MÁRQUEZ ([id number]) 2000 F Date Time Provider Department 11/22/21 NARDA GIL During your visit today, we recorded the following information about you: Cate Shah LPN 11/22/2021 1:41 PM Signed Patient is scheduled for a IUD removal consult on 11/23/21 w/ Radha Gil. Left message for patient to call office. Does patient want IUD removed at the appointment or just discuss having the IUD removed. No order or precert has been done for removal. Allergies As of Date: 11/22/2021 Noted Allergy Reaction LATEX 01/15/2017 2 - Rash SERTRALINE 07/25/2021 14 - Other: See Comments Comments: Nose bleeds Date Reviewed: 09/19/2021 Reviewed by: Narda Gil APRN.MANAGER MECHANICAL MAINTENANCE - Fully Assessed Reason for Visit: Appointment [186] Prescriptions as of 11/23/2021 - levonorgestrel (KYLEENA) 17.5 mcg/24 hrs (5 yrs) 19.5 mg IUD 1 Each by INTRAUTERINE route as directed. Problem List As Of Date: 11/22/2021 (None) Encounter Status:Closed by CATE SHAH LPN on 11/23/21 [facility] CNOVon 09-19-2021 CNOV Office Visit (OBGYWM ) CHARLIE MÁRQUEZ ([id number]) 2000 F Date Time Provider Department 09/19/21 8:00 AM NARDA GIL During your visit today, we recorded the following information about you: Blood pressure Weight 102/58 72.1 kg Narda Gil APRN.NATHANAEL 09/19/2021 8:34 AM Signed Charlie Márquez presents today for IUD check. She had a Kyleena placed on 08/22/2021. She has had occasional cramping that is intense since placement. Cramping initially every 1-2 days but has not had any for past 3 days. REVIEW OF SYSTEMS: No fever or chills PHYSICAL EXAMINATION: BP 102/58 Wt 159 lb (72.1kg) LMP 08/16/2021 ABDOMEN:soft, non-tender, no masses, no hepatosplenomegaly and no lymphadenopathy EXTERNAL GENITALIA: Normal genitalia and Bartholins, Urethra, Sken'e normal CERVIX: smooth, no lesions. IUD strings visible - 2 cm in length. UTERUS: normal size ADNEXA: negative for tenderness or masses IMPRESSION/PLAN: IUD correctly positioned. Follow up for annual exam or sooner if needed. Narda Gil CNP I spent a total of 15 minutes on the date of the service which included preparing to see the patient, [id number] patient care, completing clinical documentation, obtaining and/or reviewing separately obtained history, performing a medically appropriate examination and counseling and educating the patient/family/caregiv er. Referring Provider: SELF [200] Allergies As of Date: 09/19/2021 Noted Allergy Reaction LATEX 01/15/2017 2 - Rash SERTRALINE 07/25/2021 14 - Other: See Comments Comments: Nose bleeds Date Reviewed: 09/19/2021 Reviewed by: Narda Gil APRN.MANAGER MECHANICAL MAINTENANCE - Fully Assessed Reason for Visit: IUD [60] Cmt: follow up Primary Visit Diagnosis:Encounter for routine checking of intrauterine contraceptive device (IUD) [Z30.431] Prescriptions as of 09/19/2021 - levonorgestrel (KYLEENA) 17.5 mcg/24 hrs (5 yrs) 19.5 mg IUD 1 Each by INTRAUTERINE route as directed. Problem List As Of Date: 09/19/2021 (None) Medications Discontinued During This Encounter Prescriptions - miSOPROStol (CYTOTEC) 200 mcg tablet (Discontinued) Reported on 09/19/2021 Encounter Status:Closed by NARDA GIL on 09/19/21 Normal [facility] CNOVon 08-22-2021 CNOV Office Visit (OBGYWM ) CHARLIE MÁRQUEZ ([id number]) 2000 F Date Time Provider Department 08/22/21 4:00 PM NARDA GIL OBGYWM During your visit today, we recorded the following information about you: Blood pressure Weight Last Period 112/70 69.9 kg 08/16/21 Narda Gil APRN.CNP 08/22/2021 4:34 PM Ovi Denny presents today for IUD insertion for contraception. Patient's last menstrual period was 07/16/2021. GC/chlamydia: Not done: no risk factors and/or patient declines screening test: negative Side effects including irregular bleeding were discussed with the patient. The patient understands that it should be removed in 5 years or sooner if the patiient desires a . IUD source: office provided IUD lot #: [id number] Exp date: 07/2023 UNIVERSAL PROTOCOL / SAFETY CHECKLIST Procedure to be Performed: Kyleena IUD Insertion Sign In: A Moment of CARE was completed. Personnel directly involved with the procedure wore the appropriate PPE (Personal Protective Equipment). Patient/Surrogate Stated/Verified: PATIENT VERIFIED(optional for EMERGENT procedures): Patient name, Date of , Relevant allergies and The intended procedure Time Out Communication: Intended patient and procedure match the source documents. Consent documented and matches the intended procedure. Relevant labs, photos, and/or imaging studies have been reviewed. Implant(s) inserted: Correct implant(s) confirmed including size and side. and Expiration date(s) reviewed. No implant(s) inserted. Sign Out: SIGN OUT (optional for EMERGENT procedures): All instruments, equipment, possible retained foreign bodies accounted for. Post-procedure follow-up management communicated and Plan of Care Visit completed when applicable. The uterus sounded to 7 cm and the uterus is Anteverted.. After prepping the cervix with betadine and using sterile technique, the Kyleena IUD was inserted without difficulty and the string was cut to 3 cm from the external os of the cervix. Patient tolerated procedure well. PLAN: Patient was advised to observe for signs and symptoms of infection including but not limited to fever, malodorous vaginal discharge and/or pain. The patient was told to check the string monthly for accurate placement. Bleeding expectations were reviewed. Follow up in one month. Narda Gil APRN.MANAGER MECHANICAL MAINTENANCE Kirsten Haddad MA 08/22/2021 4:10 PM Signed POST IUD INSTRUCTIONS You may have irregular bleeding during the first 3 months of use. You may have mild-severe cramping for the next 48 hours. You may use over the counter medication (Motrin, Tylenol) as needed. Your IUD must be removed or replaced based on the following table: IUD Type Removed or replaced within: Jyotsna 3 years Kyleena 5 years Mirena 7 years Paragard 10 years Call my office for signs/symptoms of infection such as severe cramping, fever, or unusual bleeding. Check for string placement as instructed by your doctor. If you have any additional questions, please contact the office. Referring Provider: NARDA GIL [[id number]] Allergies As of Date: 08/22/2021 Noted Allergy Reaction LATEX 01/15/2017 2 - Rash SERTRALINE 07/25/2021 14 - Other: See Comments Comments: Nose bleeds Date Reviewed: 08/22/2021 Reviewed by: Narda Gil APRN.MANAGER MECHANICAL MAINTENANCE - Fully Assessed Reason for Visit: Insertion Of IUD [291] Primary Visit Diagnosis:Encounter for IUD insertion [Z30.430] Order(s):INSERT INTRAUTERINE DEVICE [[id number]] Order #: [id number] [] levonorgestrel 17.5 mcg/24 hrs (5 yrs) 19.5 mg 1 Each intrauterine device (KYLEENA)Disp: Rfl: levonorgestrel (KYLEENA) 17.5 mcg/24 hrs (5 yrs) 19.5 mg IUD1 Each by INTRAUTERINE route as directed.Disp: 1 EachRfl: 0 HCG QUAL UR B/O [[id number]] Order #: [id number] Prescriptions as of 08/22/2021 - levonorgestrel (KYLEENA) 17.5 mcg/24 hrs (5 yrs) 19.5 mg IUD 1 Each by INTRAUTERINE route as directed. - miSOPROStol (CYTOTEC) 200 mcg tablet Insert 2 tablets vaginally night prior to procedure and 2 tablets morning of procedure. Each dose should be in vagina for 6-8 hours. Problem List As Of Date: 08/22/2021 (None) Other instructions from your clinician: POST IUD INSTRUCTIONS You may have irregular bleeding during the first 3 months of use. You may have mild-severe cramping for the next 48 hours. You may use over the counter medication (Motrin, Tylenol) as needed. Your IUD must be removed or replaced based on the following table: IUD Type Removed or replaced within: Jyotsna 3 years Kyleena 5 years Mirena 7 years Paragard 10 years Call my office for signs/symptoms of infection such as severe cramping, fever, or unusual bleeding. Check for string placement as instructed by your doctor. If you have any additional questions, please contact the office. Prescriptions ordered this encounter Disp Refills Start E (more content not included)... Normal [facility] CNCOon 08-02-2021 CNCO Letter Text Normal [facility] CNOVon 07-25-2021 CNOV Office Visit (OBGYWM ) KALEYCHARLIE Mony ([id number]) 2000 F Date Time Provider Department 07/25/21 9:30 AM NARDA GIL During your visit today, we recorded the following information about you: Blood pressure Weight Height Last Period 110/72 68.9 kg 1.765 m 07/16/21 Narda Gil APRN.MANAGER MECHANICAL MAINTENANCE 07/25/2021 10:09 AM Signed Charlie is a 21 year old who presents for an annual gynecologic exam without complaints. Interested in IUD. Menses: cycles every 28-30 days and 5 days of flow. Contraception: none HPV vaccine: No Last Pap: never HPV: N/A History of abnormal pap: NA Last mammogram: never Sexually active: Yes History of STDS: None Patient concerns for STD exposure: No. Time with current partner: 4 years Pain with intercourse: No Postcoital bleeding: No OB History T0 L0 SAB0 TAB0 Ectopic0 Multiple0 Live Births0 PAST MEDICAL HISTORY Diagnosis Date - NEGATIVE MEDICAL HISTORY PAST SURGICAL HISTORY Procedure Laterality Date - TONSILLECTOMY HX FAMILY HISTORY Problem Relation Age of Onset - Thyroid Mother cancer - Diabetes Mother SOCIAL HISTORY Social History Tobacco Use - Smoking status: Never Smoker - Smokeless tobacco: Never Used Vaping Use - Vaping Use: Never used Substance Use Topics - Alcohol use: No - Drug use: No REVIEW OF SYSTEMS Abdomen: No abdominal pain, nausea, vomiting, diarrhea, or constipation. No bloating, early satiety, indigestion, or increased flatulence. Bladder: No dysuria, gross hematuria, urinary frequency, urinary urgency, or incontinence. Breast: No breast lumps, nipple d/c, overlying skin changes, redness or skin retraction. Allergies and current medication updated:Yes EXAM: BP 110/72 Ht 5' 9.5" (1.77m) Wt 152 lb (68.9kg) LMP 07/16/2021 BMI 22.13 kg/(m2). GENERAL: pleasant, female in no apparent distress HEENT: Normocephalic, atraumatic, mucus membranes moist and no lesions NECK: Supple, full range of motion, no adenopathy and thyroid normal DERMATOLOGY: Normal, without lesions, non-icteric and non-hirsute BREAST: soft, non-tender, symmetric, no dominant mass, normal nipple-areolar complex, no lymphadenopathy and no nipple discharge CHEST: Normal inspiratory effort ABDOMEN: soft, non-tender and no masses PELVIC: external genitalia normal, normal Bartholin's glands, urethra, Risingsun's glands, no vulvar lesions, no cervical lesions, good vaginal support, physiologic discharge present, normal appearing perineal body and perianal region BIMANUAL: uterus normal size, shape and consistency, no adnexal masses and non-tender RECTOVAGINAL: deferred. NEURO: alert and oriented x3,exam grossly non-focal EXTREMITIES: normal ASSESSMENT/PLAN: 1) Health maintenance: Pap done with reflex HPV. Nutrition, exercise and routine health maintenance exams reviewed. HPV vaccine: discussed, not interested 2) Contraception: none. Contraceptive options reviewed and information provided. 3) STD screening: Declined STD check. 4) Follow up one year or sooner as needed SUE Pedroza 08/02/2021 4:38 PM Signed Normal pap letter mailed Referring Provider: SELF [200] Allergies As of Date: 07/25/2021 Noted Allergy Reaction LATEX 01/15/2017 2 - Rash SERTRALINE 07/25/2021 14 - Other: See Comments Comments: Nose bleeds Date Reviewed: 07/25/2021 Reviewed by: aNrda Gil APRN.MANAGER MECHANICAL MAINTENANCE - Fully Assessed Reason for Visit: Yearly Exam [187] Primary Visit Diagnosis:Encounter for gynecological examination (general) (routine) without abnormal findings [Z01.419] Other Visit Diagnoses:Screening for cervical cancer [Z12.4] Encounter for screening for human papillomavirus (HPV) [Z11.51] Encounter for general counseling and advice on contraceptive management [Z30.09] Order(s):PAP FLUID CERVICAL SCREENING [[id number]] Order #: [id number]. #:[id number] INSERT INTRAUTERINE DEVICE [[id number]] Order #: [id number] miSOPROStol (CYTOTEC) 200 mcg tabletInsert 2 tablets vaginally night prior to procedure and 2 tablets morning of procedure. Each dose should be in vagina for 6-8 hours.Disp: 4 tabletRfl: 0 Prescriptions as of 08/02/2021 - miSOPROStol (CYTOTEC) 200 mcg tablet Insert 2 tablets vaginally night prior to procedure and 2 tablets morning of procedure. Each dose should be in vagina for 6-8 hours. Problem List As Of Date: 07/25/2021 (None) Prescriptions ordered this encounter Disp Refills Start End MISOPROSTOL 200 MCG TABLET 4 ta* 0 07/25/2021 Sig: Insert 2 tablets vaginally night prior to procedure and 2 tablets morning of procedure. Each dose should be in vagina for 6-8 hours. Medications Discontinued During This Encounter Prescriptions - Desogestrel-Ethinyl Estradiol (ENSKYCE) 0.15-0.03 mg per tablet (Discontinued) Reported on 07/25/2021 (more content not included)... Normal [facility] CYTOLOGYon 07-25-2021 CYTOLOGY Specimen originated from [facility] Specimen #: [id number] Submitting Physician: NARDA GIL CNP SPECIMEN SUBMITTED A: CERVICAL, SCREENING, FLUID _ FINAL DIAGNOSIS A. CERVICAL, SCREENING, FLUID Satisfactory for interpretation. Negative for intraepithelial lesion or malignancy. Acute inflammation. This specimen has been analyzed by the ThinPrep Imaging System, an automated imaging and review system, which assists the laboratory in evaluating cells on ThinPrep Pap tests. Following automated imaging, selected francis from every slide are reviewed by a leadership development instructor. MADISON Luna(ASCP) (Electronic Signature) _ CLINICAL DATA ROUTINE EXAM, HPV Testing: Yes, Reflex HPV for ASCUS Date of Last Menstrual Period: 07/16/2021 STAINS A: CERVICAL, SCREENING, FLUID THIN PREP BANK TELLER MACHINE MECHANIC Zakiya Jean Baptiste M.D., Strapper Operator Date of Report: 08/01/2021 Date of Procedure: 07/25/2021 Date of Receipt: 07/26/2021 Submitted by: NARDA GIL CNP Location: [facility] Diagnostic interpretation performed at [facility], [address] [place] [address]. CLIA Number: [id number] The Pap Smear is a screening test for cervical cancer. False negative results occur with all screening tests, emphasizing the need for rescreening at recommended intervals, and clinical correlation. Normal [facility] Laboratory - Microbiology an d Antimicrobial susceptibilityon 02-15-2020 FLUAV+FLUBV Ag Ql (Unsp spec) See Note [facility]. Work Phone: S. pyogenes Ag Ql (Throat) See Note Normal [facility] Work Phone: Streptococcus.beta-he molytic Org specific cx Ql (Unsp spec) See Note Normal [facility] Work Phone: CURon 02-28-2018 CUR . MICRO - MicrobiologyPROCEDURE: Urine Culture [*1] Urine BODY SITE:COLLECTED DATE/TIME: 02/26/2018 10:01 EDT RECEIVED DATE/TIME: 02/26/2018 19:32 EDTSTART DATE/TIME: 02/26/2018 19:33 EDT FREE TEXT SOURCE:FINAL REPORTSFinal Report []Verified Date/Time/Personnel: 02/28/2018 07:17 EDTNo growth at 48 hours.PRELIMINARY REPORTSPreliminary Report []Verified Date/Time/Personnel: 02/27/2018 07:24 EDTNo growth to datePerforming Locations*1: This test was performed at: [address], [address] [place] [address] ([place]) Comment on above: Performed By: #### C UR ####[place] [address] Laboratory - Chemistry and C hemistry - challengeon 02-26-2018 Bilirubin Ql (U) Negative Normal [facility] Ketones Ql (U) Negative Normal [facility] [place] [facility] pH (U) 6.0 [pH] Normal [facility] [place] [facility] DepartmentBustle Inc.; [facility] [place] [facility] Specific gravity (U) [Rel density] 1.010 Normal [facility] [place] [facility].; [facility] [place] [facility] Laboratory - Hematology and Cell countson 02-26-2018 Hemoglobin Ql (U) Negative Normal [facility] [place] [facility].; [facility] [place] [facility] Laboratory - Specimen inform ationon 02-26-2018 Appearance (U) CLEAR Normal [facility] [place] [facility].; [facility] [place] [facility] Color (U) YELLOW Normal [facility] [place] [facility] [place] [facility] Laboratory - Urinalysison Glucose Test strip (U) [Mass/Vol] Negative Normal [facility] [place] [facility].; [facility] [place] [facility] Leukocyte esterase Test strip Ql (U) Negative Normal [facility], Inc.; [facility] [place] [facility] Nitrite Ql (U) Negative Normal [facility] [place] [facility].; [facility] [place] [facility] Protein Ql (U) Negative Normal [facility] [place] [facility], [facility].; [place] [employer] [facility] [place] [facility] No Panel Informationon 02-26 Culture Urine See Note Normal [facility] [place] [facility].; [facility] [place] [facility]. UA - ODOR Negative Normal [facility] [place] [facility] DepartmentBustle Inc.; [place] [employer] [facility] [place] [facility]. UA - UROBILIGEN 0.2 Normal [facility] [place] Emergency DepartmentTeranode.; [facility] [place] [facility] Vital Signs Date Time Vital Sign Value Performing Clinician Jonoi dinora 09-23-2025 15:06-0500 Body height 175.26 cm Neva Dodge CNM Work Phone: [facility] 09-23-2025 15:06-0500 Body mass index (BMI) [Ratio] 25.4 kg/m2 Neva Dodge CNM Work Phone: [facility] 09-23-2025 15:06-0500 Body weight 78.18 kg Neva Dodge CNM Work Phone: [facility] 09-23-2025 15:06-0500 Diastolic blood pressure 84 mm[Hg] Neva Dodge CNM Work Phone: [facility] 09-23-2025 15:06-0500 Systolic blood pressure 130 mm[Hg] Neva Dodge CNM Work Phone: [facility] 09-16-2025 11:09-0400 Body mass index (BMI) [Ratio] 25.7 kg/m2 Neva Dodge CNM Work Phone: [facility] 09-16-2025 11:09-0400 Body weight 79.03 kg Neva Dodge CNM Work Phone: [facility] 09-16-2025 11:09-0400 Diastolic blood pressure 80 mm[Hg] Neva Dodge CNM Work Phone: [facility] 09-16-2025 11:09-0400 Systolic blood pressure 133 mm[Hg] Neva Dodge CNM Work Phone: [facility] 09-08-2025 11:15-0400 Body mass index (BMI) [Ratio] 25.2 kg/m2 Neva Dodge CNM Work Phone: [facility] 09-08-2025 11:15-0400 Body weight 77.62 kg Neva TAYLORM Work Phone: [facility] 09-08-2025 11:15-0400 Diastolic blood pressure 82 mm[Hg] Neva Dodge CNM Work Phone: [facility] 09-08-2025 11:15-0400 Systolic blood pressure 136 mm[Hg] Neva Dodge CNM Work Phone: [facility] 08-26-2025 09:53-0400 Body height 175.26 cm Neva TAYLORM Work Phone: [facility] 08-26-2025 09:53-0400 Body mass index (BMI) [Ratio] 25 kg/m2 Neva Dodge CNM Work Phone: [facility] 08-26-2025 09:53-0400 Body weight 76.88 kg Neva TAYLORM Work Phone: [facility] 08-26-2025 09:53-0400 Diastolic blood pressure 80 mm[Hg] Neva TAYLORM Work Phone: [facility] 08-26-2025 09:53-0400 Systolic blood pressure 120 mm[Hg] Neva TAYLORM Work Phone: [facility] 08-12-2025 08:24-0400 Body height 175.26 cm Neva Dodge CNM Work Phone: [facility] 08-12-2025 08:24-0400 Body mass index (BMI) [Ratio] 24.7 kg/m2 Neva Dodge CNM Work Phone: [facility] 08-12-2025 08:24-0400 Body weight 76.2 kg Neva Dodge CNM Work Phone: [facility] 08-12-2025 08:24-0400 Diastolic blood pressure 75 mm[Hg] Neva Dodge CNM Work Phone: [facility] 08-12-2025 08:24-0400 Systolic blood pressure 118 mm[Hg] Neva Dodge CNM Work Phone: [facility] 11-20-2024 15:37-0500 Body height 175.26 cm MARY MARTIN RN [facility] [place] [facility] DepartmentTeranode.; [facility] [place] [facility] DepartmentTeranode. 11-20-2024 15:37-0500 Body mass index (BMI) [Ratio] 24.66 kg/m2 MARY MARTIN RN [facility] [employer] [place] [facility] DepartmentTeranode.; [facility] 11-20-2024 15:37-0500 Body surface area Derived from formula 1.91 m2 M[address] MARTIN RN [facility] [place] [facility] DepartmentTer[facility].; [facility] [employer] [place] [facility] DepartmentTeranode. 11-20-2024 15:37-0500 Body temperature 98.1 [degF] MARY MARTIN RN [facility] [place] [facility] DepartmentTer[facility]ode.; [place] [facility] [employer] [place] [facility] DepartmentTeranode. Comment on above: Method: Oral 11-20-2024 15:37-0500 Body weight 75.75 kg MARY MARTIN RN [facility] [place] [facility] DepartmentTeranode.; [facility] [place] [facility] DepartmentTeranode. 11-20-2024 15:37-0500 Diastolic blood pressure 77 mm[Hg] MARY MARTIN RN [facility], [employer] [facility], Inc. Comment on above: Patient Position: Sitting; Cuff Location : Left Arm; Cuff Size: Standard 11-20-2024 15:37-0500 Heart rate 118 /min MARY MARTIN RN [facility], Inc.; [facility], Inc. Comment on above: Pattern: Regular 11-20-2024 15:37-0500 Systolic blood pressure 113 mm[Hg] MARY MARTIN RN [facility], Inc.; [facility], Inc. Comment on above: Patient Position: Sitting; Cuff Location : Left Arm; Cuff Size: Standard 07-30-2024 09:44-0400 Body weight 72.58 kg Nay Khan RN [facility], [employer].; [facility], Inc. 07-30-2024 09:44-0400 Diastolic blood pressure 84 mm[Hg] Nay Khan RN [facility], [employer].; [facility], Inc. Comment on above: Patient Position: Sitting; Cuff Location : Left Arm; Cuff Size: Large 07-30-2024 09:44-0400 Heart rate 72 /min Nay Khan RN [facility], [employer].; [facility], Inc. Comment on above: Pattern: Regular 07-30-2024 09:44-0400 Systolic blood pressure 128 mm[Hg] Nay Khan RN [facility], Inc.; [facility], Inc. Comment on above: Patient Position: Sitting; Cuff Location : Left Arm; Cuff Size: Large 02-19-2024 14:50-040 Body height 175.26 cm MEGAN LEBLANC RN [facility], Inc.; [employer] [facility], Inc. 02-19-2024 14:50-0400 Body mass index (BMI) [Ratio] 24.51 kg/m2 MEGAN LEBLANC RN [facility], Inc.; [facility], Inc. 02-19-2024 14:50-0400 Body surface area Derived from formula 1.91 m2 MEGAN LEBLANC RN [facility], Inc.; [facility], Inc. 02-19-2024 14:50-0400 Body temperature 98.9 [degF] MEGAN LEBLANC RN [facility], Inc.; [facility], [employer]. Comment on above: Method: Oral 02-19-2024 [id number]:500400 Body weight 75.3 kg MEGAN GRATE MI [facility], Inc.; [facility], Inc. 02-19-2024 14:50-0400 Diastolic blood pressure 72 mm[Hg] MEGAN GRATE RN [facility], Inc.; [facility], Inc. Comment on above: Patient Position: Sitting; Cuff Location : Left Arm; Cuff Size: Standard 02-19-2024 14:50-0400 Heart rate 112 /min MEGAN LEBLANC [facility], Inc.; [facility], Inc. Comment on above: Pattern: Regular 02-19-2024 14:50-0400 Systolic blood pressure 109 mm[Hg] MEGAN LEBLANC RN [facility], Inc.; [facility], Inc. Comment on above: Patient Position: Sitting; Cuff Location : Left Arm; Cuff Size: Standard 02-06-2023 15:10040 Body height 175.26 cm Nay Khan RN [facility], Inc.; [facility], Inc. 02-06-2023 15:10-0400 Body mass index (BMI) [Ratio] 23.63 kg/m2 Nay Khan RN [facility], Inc.; [facility], Inc. 02-06-2023 15:10-0400 Body surface area Derived from formula 1.88 m2 Nay Khan RN [facility], Inc.; [facility], Inc. 02-06-2023 15:10-0400 Body temperature 98.9 [degF] Nay Khan RN [facility], Inc.; [employer] [facility] [place] [facility], [employer]. Comment on above: Method: Oral 02-06-2023 15:10-0400 Body weight 72.58 kg Nay Khan RN [facility] [place] [facility], Inc.; [facility] [employer] [place] [facility], Inc. 02-06-2023 15:10-0400 Diastolic blood pressure 77 mm[Hg] Nay Khan RN [facility].; [facility] [employer] [place] [facility], Inc. Comment on above: Patient Position: Sitting; Cuff Location : Left Arm; Cuff Size: Large 02-06-2023 15:10-0400 Heart rate 101 /min Nay Khan RN [facility], Inc.; [place] [facility] [employer] [place] [facility], Inc. Comment on above: Pattern: Regular 02-06-2023 15:10-0400 Systolic blood pressure 112 mm[Hg] Nay Khan RN [facility] [employer] [place] [facility] DepartmentTeranode.; [facility] [employer] [place] [facility], Inc. Comment on above: Patient Position: Sitting; Cuff Location : Left Arm; Cuff Size: Large 06-02-2021 15:52-0400 Body height 175.26 cm [facility], Inc.; [employer] [facility], Inc. 06-02-2021 15:52-0400 Body mass index (BMI) [Ratio] 22.71 kg/m2 [facility], [facility], Inc. 06-02-2021 15:52-0400 Body surface area Derived from formula 1.85 m2 [facility], Inc.; [facility] [employer] [place] [facility], Inc. 06-02-2021 15:52-0400 Body weight 69.76 kg [facility] [employer] [place] [facility], Inc.; [facility] [employer] [place] [facility], Inc. 06-02-2021 15:52-0400 Diastolic blood pressure 76 mm[Hg] [facility] [employer] [place] [facility], Inc.; [facility] [employer] [place] [facility], Inc. Comment on above: Patient Position: Sitting; Cuff Location : Left Arm; Cuff Size: Standard 06-02-2021 15:52-0400 Heart rate 70 /min [facility] [place] [facility], Inc.; [place] [facility] [employer] [place] [facility], Inc. Comment on above: Pattern: Regular 06-02-2021 15:52-0400 Systolic blood pressure 109 mm[Hg] MASHA HI [employer].; [place] [facility] whodoyou [place] [facility] DepartmentTeranode. Comment on above: Patient Position: Sitting; Cuff Location : Left Arm; Cuff Size: Standard 05-05-2021 15:53-0400 Body height 175.26 cm Candelario MOODY MD Work Phone: [employer].; [place] [facility] [employer]. 05-05-2021 15:53-0400 Body mass index (BMI) [Ratio] 22.86 kg/m2 Candelario MOODY MD Work Phone: [facility] [employer].; [place] [facility] [employer]. 05-05-2021 15:53-0400 Body surface area Derived from formula 1.85 m2 Candelario MOODY MD Work Phone: [employer].; [place] [facility] [employer]. 05-05-2021 15:53-0400 Body weight 70.22 kg Candelario MOODY MD Work Phone: [employer].; [place] [facility] [employer]. 05-05-2021 15:53-0400 Diastolic blood pressure 85 mm[Hg] Candelario MOODY MD Work Phone: [employer].; [place] [facility] [employer]. Comment on above: Patient Position: Sitting; Cuff Location : Left Arm; Cuff Size: Large 05-05-2021 15:53-0400 Heart rate 94 /min Candelario MOODY MD Work Phone: [employer].; [employer]. Comment on above: Pattern: Regular 05-05-2021 15:53-0400 Systolic blood pressure 142 mm[Hg] Candelario MOODY MD Work Phone: [employer].; [place] [facility] [employer]. Comment on above: Patient Position: Sitting; Cuff Location : Left Arm; Cuff Size: Large 08-27-2019 11:15-0400 Body height 175.26 cm Candelario MOODY MD Work Phone: [employer].; [employer] 08-27-2019 11:15-0400 Body mass index (BMI) [Ratio] 20.67 kg/m2 Candelario MOODY MD Work Phone: [employer].; [employer] 08-27-2019 11:15-0400 Body surface area Derived from formula 1.78 m2 Candelario MOODY MD Work Phone: [employer].; [employer], [employer] 08-27-2019 11:15-0400 Body weight 63.5 kg Candelario MOODY MD Work Phone: [employer].; [employer], [employer] 02-26-2018 09:14-0400 Body height 177.8 cm [email or web address] Inc.; [facility] Get [employer] [facility] [employer], [employer] 02-26-2018 09:14-0400 Body mass index (BMI) [Ratio] 18.94 kg/m2 [employer], Inc.; [facility] [employer], [employer] 02-26-2018 09:14-0400 Body surface area Derived from formula 1.75 m2 [email or web address] Inc.; [facility] [employer], Inc. 02-26-2018 09:14-0400 Body temperature 98.2 [degF] [email or web address].; [facility] [employer], [employer]. Comment on above: Method: Oral 02-26-2018 09:14-0400 Body weight 59.88 kg [employer].; [facility] [employer], Inc. 02-26-2018 09:14-0400 Diastolic blood pressure 75 mm[Hg] [employer], [employer].; [place] [employer]. Comment on above: Patient Position: Sitting; Cuff Location : Left Arm; Cuff Size: Standard 02-26-2018 09:14-0400 Heart rate 89 /min CIPRIANO VERONICA [employer] [place] [facility] DepartmentTeranode.; [place] [employer] [facility] [employer]. Comment on above: Pattern: Regular 02-26-2018 09:14-0400 Systolic blood pressure 112 mm[Hg] CIPRIANO BIRMINGHAMYER [employer].; [place] [employer] [facility] [employer]. Comment on above: Patient Position: Sitting; Cuff Location : Left Arm; Cuff Size: Standard 09-27-2017 10:36-0500 Body height 176.53 cm Candelario MOODY MD Work Phone: [employer]; [employer] 09-27-2017 10:36-0500 Body mass index (BMI) [Percentile] Per age and sex 21 % Candelario MOODY MD Work Phone: [employer]; [employer]. 09-27-2017 10:36-0500 Body mass index (BMI) [Ratio] 19.48 kg/m2 Candelario MOODY MD Work Phone: [employer]; [employer]. 09-27-2017 10:36-0500 Body surface area Derived from formula 1.75 m2 Candelario MOODY MD Work Phone: [employer]; [employer]. 09-27-2017 10:36-0500 Body temperature 97.9 [degF] Candelario MOODY MD Work Phone: [employer].; [employer]. Comment on above: Method: Oral 09-27-2017 10:36-0500 Body weight 60.69 kg Candelario MOODY MD Work Phone: [employer].; [employer]. 09-27-2017 10:36-0500 Diastolic blood pressure 81 mm[Hg] Candelario MOODY MD Work Phone: [employer].; [employer]. Comment on above: Patient Position: Sitting; Cuff Location : Left Arm; Cuff Size: Large 09-27-2017 10:36-0500 Heart rate 76 /min Candelario MOODY MD Work Phone: [employer].; [employer]. Comment on above: Pattern: Regular 09-27-2017 10:36-0500 Systolic blood pressure 122 mm[Hg] Candelario MOODY MD Work Phone: [employer].; [employer]. Comment on above: Patient Position: Sitting; Cuff Location : Left Arm; Cuff Size: Large 11-17-2015 08:45-0500 Body height 177.16 cm Nay Khan RN [facility] whodoyou [place] [facility] DepartmentTeranode.; [employer]. 11-17-2015 08:45-0500 Body mass index (BMI) [Percentile] Per age and sex 14 % Nay Khan RN [facility] whodoyou [place] [facility] DepartmentTeranode.; [employer] [facility] [place] [employer] [place] [facility] DepartmentTeranode. 11-17-2015 08:45-0500 Body mass index (BMI) [Ratio] 18.5 kg/m2 Nay Khan RN [facility] [employer] [place] [facility], Inc.; [employer] [facility] whodoyou [place] [facility] DepartmentTeranode. 11-17-2015 08:45-0500 Body surface area Derived from formula 1.72 m2 Nay Khan RN [facility] whodoyou [place] [facility] DepartmentTeranode.; [employer]. 11-17-2015 08:45-0500 Body weight 58.06 kg Nay Khan RN [facility] whodoyou [place] [facility] DepartmentTeranode.; [employer]. 11-17-2015 08:45-0500 Diastolic blood pressure 77 mm[Hg] Nay Khan RN [facility] [place] [employer] [place] [facility], Inc.; [employer]. Comment on above: Patient Position: Sitting; Cuff Location : Right Arm; Cuff Size: Standard 11-17-2015 08:45-0500 Heart rate 98 /min Nay Khan RN [facility] [employer] [place] [facility] DepartmentTeranode.; [facility] [employer] [place] [facility], [employer]. Comment on above: Pattern: Regular 11-17-2015 08:45-0500 Systolic blood pressure 128 mm[Hg] Nay Khan RN [facility] [place] [facility] DepartmentTeranode.; [facility] [employer] [place] [facility], Inc. Comment on above: Patient Position: Sitting; Cuff Location : Right Arm; Cuff Size: Standard 07-11-2015 11:14-0400 Body height 173.99 cm [facility] [employer] [place] [facility] DepartmentTeranode.; [employer] [facility] [employer] [place] [facility], Inc. 07-11-2015 11:14-0400 Body mass index (BMI) [Percentile] Per age and sex 28 % [facility] [employer] [place] [facility] DepartmentTeranode.; [employer] [facility] [employer] [place] [facility], Inc. 07-11-2015 11:14-0400 Body mass index (BMI) [Ratio] 19.48 kg/m2 [facility] [employer] [place] [facility] DepartmentTeranode.; [facility], Inc. 07-11-2015 11:14-0400 Body surface area Derived from formula 1.71 m2 [facility] [employer] [place] [facility] DepartmentTeranode.; [employer] [facility] [employer] [place] [facility], Inc. 07-11-2015 11:14-0400 Body weight 58.97 kg [facility] [employer] [place] [facility] DepartmentTeranode.; [employer] [facility] [employer] [place] [facility], Inc. 07-11-2015 11:14-0400 Diastolic blood pressure 74 mm[Hg] CIPRIANO [facility] [place] [facility] DepartmentTeranode.; [employer] [facility] [employer] [place] [facility], Inc. Comment on above: Patient Position: Sitting; Cuff Location : Left Arm; Cuff Size: Standard 07-11-2015 11:14-0400 Heart rate 68 /min CIPRIANO [facility] whodoyou [place] [facility] DepartmentTeranode.; [place] [facility] [employer] [place] [facility], Inc. Comment on above: Pattern: Regular 07-11-2015 11:14-0400 Systolic blood pressure 113 mm[Hg] CIPRIANO [facility] whodoyou [place] [facility] DepartmentTeranode.; [place] [facility] [employer] [place] [facility], Inc. Comment on above: Patient Position: Sitting; Cuff Location : Left Arm; Cuff Size: Standard 05-14-2012 15:26-0400 Body height 173.35 cm CIPRIANO VERONICA [employer] [place] [facility] DepartmentTeranode.; [employer] [place] [facility] DepartmentTeranode. 05-14-2012 15:26-0400 Body mass index (BMI) [Percentile] Per age and sex 32 % CIPRIANOPIPE BIRMINGHAMYER V[employer]Asta [place] [facility] DepartmentTeranode.; [employer] [place] [employer] [place] [facility], Inc. 05-14-2012 15:26-0400 Body mass index (BMI) [Ratio] 18.26 kg/m2 [facility]O [facility] whodoyou [place] [facility] DepartmentTeranode.; [employer] [place] [employer] [place] [facility] DepartmentTeranode. 05-14-2012 15:26-0400 Body surface area Derived from formula 1.66 m2 CIPRIANO [facility] whodoyou [place] [facility] DepartmentTeranode.; [employer] [place] [employer] [place] [facility] DepartmentTeranode. 05-14-2012 15:26-0400 Body weight 54.89 kg CIPRIANO [facility] whodoyou [place] [facility] DepartmentTeranode.; [employer] [place] [employer]. 05-14-2012 15:26-0400 Diastolic blood pressure 71 mm[Hg] CIPRIANOPIPE [facility]MINGHAMChildren[facility] whodoyou [place] [facility] DepartmentTeranode.; [employer]. Comment on above: Patient Position: Sitting; Cuff Location : Left Arm; Cuff Size: Standard 05-14-2012 15:26-0400 Heart rate 102 /min CIPRIANO VERONICA [employer].; [employer]. Comment on above: Pattern: Regular 05-14-2012 15:26-0400 Systolic blood pressure 123 mm[Hg] CIPRIANO VERONICA [employer].; [employer] [employer]. Comment on above: Patient Position: Sitting; Cuff Location : Left Arm; Cuff Size: Standard Encounters Encounter Date Encounter Type Care Provider Facility Start: 09-23-2025 End: 09-23-2025 ambulatory No Primary Care Physician Facility:[facility] Start: 09-16-2025 [facility] Facility [facility] Start: 09-16-2025 End: 09-16-2025 ambulatory No Primary Care Physician Facility:[facility] Start: 09-08-2025 End: 09-08-[address] Meli Link MD -[facility] Work Phone: Start: 09-08-2025 End: 09-08-2025 ambulatory No Primary Care Physician Facility:[facility] Start: 09-02-2025 End: 09-02-2025 Patient encounter procedure Addiejose Valdez SULFIDE HEAD OPERATOR-C -Ultrasound [facility] Work Phone: Start: 09-02-2025 End: 09-02-2025 ambulatory No Primary Care Physician Facility:[facility] Start: 08-26-2025 End: 08-26-2025 Patient encounter procedure Addie Cabot SULFIDE HEAD OPERATOR-C -[facility] [place] [facility] Work Phone: Start: 08-26-2025 End: 08-26-2025 ambulatory Neva Dodge CNM Work Phone: -[facility] Start: 08-12-2025 End: 08-12-2025 ambulatory Neva Dodge CNM Work Phone: -Laboratory Specimen Start: 08-12-2025 End: 08-12-2025 Patient encounter procedure Neva Dodge CNM -Laboratory Specimen Work Phone: Start: 08-12-2025 End: 08-12-2025 Patient encounter procedure Neva Dodge CNM -[facility] [place] [facility] Work Phone: Start: 08-12-2025 End: 08-12-2025 ambulatory Neva Dodge CNM Work Phone: -[facility] Start: 08-12-2025 End: 08-12-2025 ambulatory Neva Dodge Facility:[facility] Start: 07-02-2025 ambulatory Bernice Leon Facility:[facility] Start: 07-02-2025 Non-patient / Non-visit Bernice [facility] Work Phone: Start: 05-28-2025 ambulatory Bernice Leon Facility:[facility] Start: 05-28-2025 Non-patient / Non-visit [facility] [place] [facility] Work Phone: Start: 05-28-2025 End: 05-28-2025 ambulatory DENISE RAMOS DRAIN TILE MACHINE OPERATOR-CNM Facility:[facility] Start: 05-28-2025 End: 05-28-2025 Patient encounter procedure DENISE RAMOS DRAIN TILE MACHINE OPERATOR-[facility] [facility] Start: 04-02-2025 ambulatory Bernice Leon Facility:[facility] Start: 03-05-2025 End: 03-05-[address] MARTINA MOODY MD Facility:[facility] Start: 02-19-2025 ambulatory Bernice Leon Facility:[facility] Start: 02-19-2025 End: 02-19-[address] MARTINA MOODY MD Facility:[facility] Start: 01-26-2025 ambulatory Bernice Leon Facility:[facility] Start: 11-20-2024 End: 11-20-2024 Office outpatient visit 15 minutes Candleario MOODY MD [facility] Start: 10-02-2024 End: 10-02-2024 Emergency department patient visit [facility] Start: 07-30-2024 End: 07-30-2024 ambulatory [facility] Start: 07-30-2024 End: 07-30-2024 Office outpatient visit 15 minutes Candelario MOODY [facility] Start: 02-19-2024 End: 02-19-2024 Office outpatient visit 15 minutes Candelario MOODY [facility] Start: 02-06-2023 End: 02-06-2023 Office outpatient visit 10 minutes Candelario MOODY MD Work Phone: [facility] Start: 06-02-2021 End: 06-02-2021 Office outpatient visit 10 minutes Candelario MOODY MD Work Phone: [facility]. Start: 05-05-2021 End: 05-05-2021 Office outpatient visit 10 minutes Candelario MOODY MD Work Phone: [employer] Start: 08-27-2019 End: 08-27-2019 Office outpatient visit 15 minutes Candelario MOODY MD Work Phone: [facility] Start: 03-03-2018 End: 03-03-2018 Office outpatient visit 15 minutes Candelario MOODY MD Work Phone: [facility] [employer] Start: 02-26-2018 End: 02-26-2018 Office outpatient visit 15 minutes Candelario MOODY MD Work Phone: [facility] [employer] Start: 09-27-2017 End: 09-27-2017 Office outpatient visit 15 minutes Candelario MOODY MD Work Phone: [employer] Start: 11-17-2015 End: 11-17-2015 Office outpatient visit 15 minutes Candelario MOODY MD Work Phone: [employer] Start: 07-11-2015 End: 07-11-2015 Office outpatient visit 15 minutes Candelario MOODY MD Work Phone: [employer] Start: 05-14-2012 End: 05-14-2012 Patient encounter procedure Candelario MOODY MD Work Phone: [employer] Start: 05-14-2012 End: 05-14-2012 Routine infant or child health check Candelario MOODY MD Work Phone: [employer]; [employer]. Start: 04-07-2011 End: 04-07-2011 Historical Summary Candelario MOODY MD Work Phone: [facility] Procedures Date Procedure Procedure Detail Performing Clinician Start: 09-02-2025 Ultrasound scan for growth Neva Dodge CNM Work Phone: Start: 08-12-2025 Urine culture Neva christina TROY Work Phone: Start: 07-30-2024 End: 07-30-2024 Dischrg meds reconciled w/current med list SHARON ANTONIO MD Work Phone: Start: 02-06-2023 End: 02-06-2023 Dischrg meds reconciled w/current med list JERRELL CASTRO SENIOR STATISTICAL PROGRAMMER-C Work Phone: Start: 06-02-2021 End: 06-02-2021 Dischrg meds reconciled w/current med list JERRELL Malcom CASTRO SENIOR STATISTICAL PROGRAMMER-C Work Phone: Start: 06-02-2021 End: 06-02-2021 Urinary Incontinence JERRELL Palomino SENIOR STATISTICAL PROGRAMMER-C Work Phone: Comment on above: Negative. Tonsillectomy MEGAN Dewey Comment on above: and Adenoids age 6 Plan of Treatment Date Care Activity Detail Author Start: 09-23-2025 End: 09-23-2025 Patient encounter procedure Anxiety -[facility] Work Phone: Start: 09-16-2025 Patient encounter procedure Registered Clinical -Laboratory Specimen Work Phone: Start: 09-16-2025 Beta-hemolytic Streptococcus culture Group B Streptococcus Culture [facility] Start: 09-16-2025 End: 09-16-2025 Patient encounter procedure Anxiety -[facility] Work Phone: Start: 07-30-2024 Us uterus 14 wk transabdl 11/18 gestat OB US < 14 WKS SINGLE FETUS ([id number]) Start: 30-Jul-2024 [facility]; [facility]. Start: 02-19-2024 Patient Education STREP PHARYNGITIS Indication: Sore throat Start: 19-Feb-2024 Instruction Type: Patient Education [facility]; [facility]. Start: 02-26-2018 Culture bct isol&prsmptv id isolate ea urine URINE JERSON CULTURE-ID ([id number]) Start: 26-Feb-2018 09:58-04:00 Request [employer]; [facility] Start: 05-14-2012 Im adm prq id subq/im njxs ea vaccine IMMUNIZATION ADMIN EACH ADD ([id number]) Start: 14-May-[address] [facility]; [facility] Immunizations Immunization Date Immunization Notes Care Provider Fa cility 05-14-2012 meningococcal polysaccharide vaccine (MPSV4) Candelario MOODY MD Work Phone: [facility] [employer]; [facility] Comment on above: Site: Deltoid (Left) 05-14-2012 *IMMUNIZATION ADMIN ([id number]) Candelario MOODY MD [facility] Phone[facility]; [facility] 02-17-2003 Diphtheria, tetanus toxoids and acellular pertussis vaccine, and poliovirus vaccine, inactivated Candelario MOODY MD Work Phone[facility]; [facility] 02-17-2003 measles, mumps and rubella virus vaccine Candelario MOODY MD [facility] Phone[facility]; [facility]. 07-19-1999 diphtheria, tetanus toxoids and acellular pertussis vaccine Candelario MOODY MD Work Phone[facility]; [facility]. 07-19-1999 haemophilus influenz ae type b vaccine, HbOC conjugate Candelario MOODY MD Work Phone[facility]; [facility] [place] [facility]. 04-26-1999 measles, mumps and rubella virus vaccine Candelario MOODY MD Work Phone[facility]; [facility]. 2000 diphtheria, tetanus toxoids and acellular pertussis vaccine, Haemophilus influenzae type b conjugate, and poliovirus vaccine, inactivated (HSsO-Toz-RAC) Candelario MOODY MD Work Phone: [facility]; [facility] 2000 hepatitis B vaccine, pediatric or pediatric/adolescent dosage Candelario MOODY MD Work Phone: [facility].; [facility] 2000 diphtheria, tetanus toxoids and acellular pertussis vaccine, Haemophilus influenzae type b conjugate, and poliovirus vaccine, inactivated (APyC-Khu-VMP) Candelario MOODY MD Work Phone: [facility]; [facility] 2000 diphtheria, tetanus toxoids and acellular pertussis vaccine, Haemophilus influenzae type b conjugate, and poliovirus vaccine, inactivated (YWuV-Phu-KHV) Candelario MOODY MD Work Phone: [facility]; [facility] 2000 hepatitis B vaccine, pediatric or pediatric/adolescent dosage Candelario MOODY MD Work Phone: [facility]; [facility] 1998 hepatitis B vaccine, pediatric or pediatric/adolescent dosage Candelario MOODY MD Work Phone: [facility]; [facility] Payers Date Payer Category Payer Private Health Insurance [id number] Self-pay 2025 Unknown [id number] 1998 Unknown [id number] 2.16.8 [id number] 1998 Unknown [id number] 1998 Unknown [id number] 2.16.8 [id number] 1998 Unknown [id number] 2.16.8 [id number] Unknown [employer] Unknown [id number] 2.16.8 [id number] Unknown [id number] 2.16.8 [id number] Unknown [id number] 2.16.8 [id number] Unknown [id number] 2.16.8 [id number] Unknown [id number] 2.16.8 [id number] Unknown [id number] 2.16.8 [id number] Unknown [id number] 2.16.8 [id number] Unknown [id number] 2.16.8 [id number] Unknown [id number] 2.16.8 [id number] Unknown [id number] 2.16.8 [id number] Unknown [id number] 2.16.8 [id number] Unknown [id number] 2.16.8 [id number] Unknown [id number] 2.16.8 [id number] Social History Date Type Detail Facility Alcohol Use: Alcohol Use: ; N o Alcohol Use. [facility].; [facility] Current Work/Study Status Current Work/Study Status [facility].; [facility] Highest Education Le jules Attained: Highest Education Level Attained: ; GED. [facility]; [facility] [place]. Marital status: Marital status: ; . [facility]; [facility]. Tobacco use: Tobacco use: ; N ever smoker. [facility] [facility].; [facility], [employer]. Start: 2000 Female [facility] Start: 08-11-2025 End: 08-11-2025 Never smoked tobacco [facility], [employer] [facility] Work Phone: Sex Female [facility] Clinical Notes 07-25-2021 to 09-08-2025 Note Date & Type Note Facility 09-08-2025 Progress note [facility] 08-26-2025 Evaluation note Diagnosis Onset Date Resolution Anxiety acute August 26 9:48am FH: spina bifida acute August 26, 2025 9:48am History of miscarriage, currently acute August 26, 2025 9:48am acute August 26 9:48am Small for dates affecting management of mother acute August 26 9:48am Supervision of normal acute August 26 9:48am Anxiety acute September 08, 2025 11:12am FH: spina bifida acute September 08, 2025 11:12am History of miscarriage, currently acute September 08, 2025 11:12am acute September 08, 2025 11:12am Small for dates affecting management of mother acute September 08 11:12am Supervision of normal acute September 08 11:12am Anxiety acute September 16, 2025 11:04am FH: spina bifida acute September 16, 2025 11:04am History of miscarriage, currently acute September 16, 2025 11:04am acute September 16, 2025 11:04am Small for dates affecting management of mother acute September 16 11:04am Supervision of normal acute September 16 11:04am Anxiety acute September 23, 2025 2:57pm FH: spina bifida acute September 23, 2025 2:57pm History of miscarriage, currently acute September 23, 2025 2:57pm acute September 23, 2025 2:57pm Small for dates affecting management of mother acute September 23 2:57pm Supervision of normal acute September 23 2:57pm [facility] Work Phone: 1(724) 138-173209-25-2025 Progress [facility] [address] [place] [address], [address] [place] [address] OFFICE VISIT Date of Service: 08/12/25 MR#: [id number] Acct: [id number] Name: CHARLIE MÁRQUEZ Rep #: [id number] : 2000 Provider: TROY Dodge Age/Sex: 25/F [place] [facility] Status: Signed Intake Vital Signs 08/12/25 08:24 Height 5 ft 9 in Weight: 168 lb BMI 24.7 BP 118/75 Intake Visit Reasons: 32wk OB DANICA Psychiatric Nurse Practitioner Required: No Is patient in pain?: No Allergies Latex, Natural Rubber Allergy (Mild, Verified 08/12/25 08:33) Rash sertraline Adverse Reaction (Intermediate, Verified 08/12/25 08:33) Other Medications ?Medication ?Instructions ?Recorded ?Confirmed ?Type multivitamin no.47-iron fum 27 cap PO 08/11/25 5 History mg-folate no.1 1 mg-dha 300 mg capsule (PNV-DHA) Last Menstrual Period: 12/31/24 Zika: Zika virus screening: Negative : No Have you fallen in the past year?: No PFSH PFSH Surgical History Hx of tonsillectomy [place] teeth extracted Family History Mother Diabetes Cancer, Onset Age: 40 thyroid cancer Family history of recurrent miscarriage 3 miscarriages Father Hypertension Maternal Grandmother , at 55 yo Breast cancer, Onset Age: 50 Brother Spina bifida Social History adopted: No household members: spouse housing: house current occupational status: previously employed 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 occupational exposures/hazards: No pets and animals: Yes (Avoid litterbox) pets and animals: cat(s) and dog(s) history of recent travel: No sexually active: Yes Smoking Status: Never smoker alcohol intake: never substance use type: does not use well-balanced diet: about half the time caffeine: Yes Type: coffee Number of servings: 1 eating out: 1-3 times/week during the past year weight has: remained stable what type of physical activity do you participate in: other details: pilates,strength training light wt frequency: 1-2 times per week duration: 15-30 minutes/day kaleb/denominational: Buddhism seatbelt use: always do you feel safe at home: Yes additional social history: [employer] History 2 Elective abortions Hx Para 0 Spontaneous abortions 1 Hx # Term Pregnancies Ectopic pregnancies Hx # Pregnancies Multiple births # of living children 0 Past Pregnancies Del. Date Name GA/Weeks Outcome Route Bth Weight Gen Labor Lgth Anesthesia Del Locatn Provider FOB 07/30/24 miscarriage 6 spontaneous HPI 32wk OB DANICA Details: CHARLIE MÁRQUEZ is a 25 year old who presents for New OB visit. OB Visit [place] Calculator Estimated Delivery Date Method Current WG Current Estimate 10/07/25 LMP (Certain) 32w 0d Comments: HIV: Urine Culture: Sequential Screen: NIPT Screen: Estimated Due Date: 10/07/25 Expected Delivery Route/Plan Labor Preferences- CB/BF classes: [] labor support person: [] labor intervention preferences: [] pain management options preferred: [] cut cord/dad catch: [] : [] PP control planned: [] discussed possible routes of delivery and associated risks: [] special requests: [] Specific Issue/Plans Covid status: [] Flu vaccine: [] Tdap vaccine: [] Rhogam: [] LARC form signed: [] Problem list reviewed and updated with the most current plan of care details and appropriate ordersplaced. Relevant counseling for the gestational age provided. Continue routine care and follow up unless otherwise noted in visit notes/problem list details Initial Weight: 168 lb Date -?-?-?-?-?-?-?-?-?-?-?-?- EGA Weight BP Urine Prot -?-?-?-?-?-?-?-?-?-?-?-?- Glucose FHR FuHt Pres Dilation -?-?-?-?-?-?-?-?-?-?-?-?- Effaced St Visit Note 08/12/25 -?-?-?-?-?-?-?-?-?-?-?-?- 32w 0d 168 lb (+0 oz) 118/75 -?-?-?-?-?-?-?-?-?-?-?-?- 140 31 -?-?-?-?-?-?-?-?-?-?-?-?- KW- DANICA from [facility]. Records requested. reports normal labs/glucose and US. LARC today. Menstrual History Last Menstrual Period: 12/31/24 Reported LMP: definite Normal amount/duration: Yes Frequency in days: 28 On hormonal BC at conception: No hCG+: 01/25/25 Antepartum Record Genetic Screening: Congenital Heart Defect: Other, Neural Tube Defect: Patient (Brother- Spina bifida- No genetic, carrier or AFP), Hemoglobinopathy Or Carrier: Other, Cystic Fibrosis: Other, Chromosome Abnormality: Other, Ankur- Sachs: Other, Hemophilia: Other, Intellectual Disability/Autism: Other, R ecurrent Loss/Stillbirth: Patient (Mother 3 miscarriages in a row), Other Structural Defect: Other, Other Genetic Disease: Other and Maternal Metabolic Disorder: Other Infection History: Live with someone with TB or Exposed to TB: No, Patient or Partner has history of Genital Herpes: No, Rash or Viral illness since last mentrual period: No, Prior GBS-Infected child: No, History of STD: No, HIV Infection: No, History of Hepatitis: No, Recent travel outside of [place]: No, Concern for hepatitis exposure: No, Varicella immune: Yes (immune-both) and Covid Vaccinated: No Medical History Medical History: Positive: Psychiatric (anxiety), Drug/latex allergies/reactions (latex-rash), Operations/hospitalizations (wisdom teeth, tonsillectomy) and Relevant family history (See PFSH) and Negative: Diabetes, Hypertension, Heart disease, Auto-immune disorder, Kidney disease/UTI, Neurologic/epilepsy, Depression/ depression, Hepatitis/liver disease, Varicosities/phlebitis, Thyroid dysfunction, Trauma/domestic violence, History of blood transfusions, D (Rh) Sensitized (A+), Pulmonary (e.g.,TB,Asthma), Seasonal allergies, Breast, Director Building surgery, Anesthetic complications, History of a bnormal pap (Last pap was 01/2025-neg), Uterine anomaly/librado, Infertility, Anti- retroviral treatment and Other Comments: Pt had 28 week labs with Nml GCT. PN Records to be transferred to us. ACOG First Trimester First Trimester: Nurtrition and weight gain; Discussed ROS Const Reports system reviewed and no additional complaints, except as documented Eyes Reports system reviewed and no additional complaints, except as documented ENT Reports system reviewed and no additional complaints, except as documented Card Reports system reviewed and no additional complaints, except as documented Resp Reports system reviewed and no additional complaints, except as documented GI Reports system reviewed and no additional complaints, except as documented, Denies nausea and Denies vomiting Reports system reviewed and no additional complaints, except as documented Musc Reports system reviewed and no additional complaints, except as documented Skin/Breast Reports system reviewed and no additional complaints, except as documented Neuro Yes system reviewed and no additional complaints, except as documented Psych Reports system reviewed and no additional complaints, except as documented Endo Reports system reviewed and no additional complaints, except as documented Patrick/Lymph Reports system reviewed and no additional complaints, except as documented Aller/Immun Reports system reviewed and no additional complaints, except as documented Exam Const General: cooperative, healthy appearing and no acute distress Orientation: alert, awake and oriented x3 Neck Neck: normal visual inspection and full ROM Resp Effort & Inspection: normal respiratory effort, able to speak in complete sentences and symmetric chest movement GI Inspection: normal to inspection Palpation: soft and other Other: gravid Skin General: no rashes or lesions noted Neuro General: patient alert, patient awake and patient oriented x3 Cognition: normal cognition Speech: speech normal Gait: normal gait Motor: muscle tone normal throughout Extrem General: normal to inspection and full ROM Psych Appearance: grossly normal Mental Status: mental status grossly normal Mood: congruent mood Affect: normal affect Speech and Movement: speech and movement normal Attitude: cooperative Thought Process: normal Thought Content: normal Judgment: judgment good Coding Level of Care Code OB Routine Assessment and Plan Assessment and Plan Orders: Orders Culture, Urine Today Z34.90 - Encounter for supervision of normal , unspecified, unspecified trimester Plan Details Additional Comments: ACOG trimester education reviewed and updated. see problem list details for updated plan management information and see below for orders placed atthis visit. GA appropriate handout given. Clinical Quality Measures Falls Risk Screening/Assistive Devices Have you fallen in the past year?: No 08/12/25 0853 s CNM> Date _ Neva Dodge CNM Cosigner Signature: Date (if applicable) CC: ~ [facility]08-15-2025 NoteHemoglobin EvaluationAupres[facility]2024 10:00amSeptember 2024 12:59pm12.9 g/[facility] 07-02-2025 NoteHemoglobin EvaluationAupresbyterian [facility]2024 9:00amSeptember 2024 11:59am12.9 g[facility] NoteHemoglobin Evaluation July 02, 2025 9:00amSeptember 2024 11:59am12.9 g[facility]-2024 NoteDischarge Instructions Discharge Summary [address] [place] [address] [id number] 10/02/2024 Patient: CHARLIE MÁRQUEZ Sex: Female : 2000 Age: 24y Thank you for visiting [facility]. You have been evaluated today by Raad Unger M.D. for the following condition(s): Principal Diagnosis Expected vaginal bleeding. INSTRUCTIONS (You presented with vaginal bleeding and you were 4 days late from your expected period. We did getan hCG level and it does not appear that you were . Your level was less than 1. We do not consideran hCG a positive level unless your level is greater than 5. There is no indication for a ultrasound at this time. If you do have irregular bleeding I would recommend following up with your personal driver. I would also recommend following up with your personal driver in preparation of becoming so that is easier to facilitate all your appointments when need be. If you have any worsening bleeding or worsening abdominal Pain please return. If you ever have any worsening bleeding with fever, chills, nausea, vomiting or any concern for infection he needs to also return immediately to the ED). Follow-up: Follow up with your doctor. if you continue to have irregular periods. Patient Signature 1 of 2 Discharge Instructions Facility Teaching Dietitian Date/Time General Instructions with ExitWriter [facility] [address] [place] [address] [id number] 10/02/2024 Patient: CHARLIE MÁRQUEZ Sex: Female : 2000 Age: 24y Thank you for visiting [facility]. You have been evaluated today by Raad Unger M.D. for the following condition(s): Principal Diagnosis Expected vaginal bleeding. INSTRUCTIONS (You presented with vaginal bleeding and you were 4 days late from your expected period. We did getan hCG level and it does not appear that you were . Your level was less than 1. We do not consideran hCG a positive level unless your level is greater than 5. There is no indication for a ultrasound at this time. If you do have irregular bleeding I would recommend following up with your personal driver. I would also recommend following up with your personal driver in preparation of becoming so that is easier to facilitate all your appointments when need be. If you have any worsening bleeding or worsening abdominal Pain please return. If you ever have any worsening bleeding with fever, chills, nausea, vomiting or any concern for infection he needs to also return immediately to the ED). Follow-up: Follow up with your doctor. if you continue to have irregular periods. [address]01-19-2022 NoteHNO ID: [id number] Author: Narda Gil APRN.NATHANAEL Service: ? Author Type: Nurse Practitioner Type: Progress Notes Filed: 12/06/2021 2:48 PM Note Text: Charlie presents for removal of IUD due to pain and possible future . UNIVERSAL PROTOCOL / SAFETY CHECKLIST Procedure to be Performed: IUD removal Sign In: A Moment of CARE was completed. Personnel directly involved with the procedure wore the appropriate PPE (Personal Protective Equipment). Patient/Surrogate Stated/Verified: PATIENT VERIFIED(optional for EMERGENT procedures): Patient name, Date of , Relevant allergies and The intended procedure Time Out Communication: Intended patient and procedure match the source documents. Consent documented and matches the intended procedure. Sign Out: SIGN OUT (optional for EMERGENT procedures): All instruments, equipment, possible retained foreign bodies accounted for. Post-procedure follow-up management communicated and Plan of Care Visit completed when applicable. Narda Gil APRN.MANAGER MECHANICAL MAINTENANCE PROCEDURE: Speculum placed in vagina, IUD string visualized and grasped with ring forceps. ASSESSMENT/PLAN: IUD removed without difficulty, intact, and patient tolerated procedure well. Contraception plans: condoms Reviewed pre-conception guidelines including folic acid supplementation, optimal timing of intercourse, avoidance of smoking, alcohol, exposure to environmental chemicals and need for evaluation if not within 12 months. Narda Gil APRN.[facility]01-06-2022 NoteHNO ID: [id number] Author: Narda Gil APRN.[facility] Service: ? Author Type: Nurse Practitioner Type: Progress Notes Filed: 11/23/2021 11:02 AM Note Text: Charlie Márquez is a 21 year old female who presents for problem visit continued cramping with IUD HPI: Continued cramping and spotting with Kyleena IUD. Had Mirena IUD removed also for continued cramping. Past OCP caused severe nausea and vomiting. She and are considering or a different form of contraception. OB History T0 L0 SAB0 IAB0 Ectopic0 Multiple0 Live Births0 Director Building History LMP: 08/16/2021, IUD Age at Menarche: Age at First : Age at Menopause: Director [employer] History Comments: Sexual Activity: Yes; Male Contraception: None PAST MEDICAL HISTORY Diagnosis Date - NEGATIVE MEDICAL HISTORY PAST SURGICAL HISTORY Procedure Laterality Date - KYLEENA IUD 08/22/2021 5 yr - TONSILLECTOMY HX FAMILY HISTORY Problem Relation Age of Onset - Thyroid Mother cancer - Diabetes Mother - Hypertension Father Social History Tobacco Use - Smoking status: Never Smoker - Smokeless tobacco: Never Used Vaping Use - Vaping Use: Never used Substance Use Topics - Alcohol use: No - Drug use: No Current Outpatient Medications Medication Sig - levonorgestrel (KYLEENA) 17.5 mcg/24 hrs (5 yrs) 19.5 mg IUD 1 Each by INTRAUTERINE route as directed. No current facility-administered medications for this visit. Allergies As of Date: 11/23/2021 Allergen Noted Reaction LATEX 01/15/2017 Rash SERTRALINE 07/25/2021 Other: See Comments Fully Assessed 11/23/2021 REVIEW OF SYSTEMS Allergies and current medication updated:Yes EXAM: BP 110/68 Wt 165 lb (74.8kg) LMP 08/16/2021 GENERAL: pleasant, female in no apparent distress CHEST: Normal inspiratory effort NEURO: alert and oriented x3,exam grossly non-focal ASSESSMENT/PLAN: 1. Pain due to intrauterine contraceptive device (IUD), subsequent encounter - ICD9: V58.89, 996.76, 338.18, ICD10: T83.84XD (primary diagnosis) - continued cramping with Kyleena, also had cramping with Mirena - REMOVE INTRAUTERINE DEVICE 2. Intermenstrual spotting due to intrauterine device (IUD), initial encounter ([facility]) - ICD9: 996.76, 626.6, ICD10: T83.83XA, N92.3 - REMOVE INTRAUTERINE DEVICE 3. General counseling and advice for contraceptive management - ICD9: V25.09, ICD10: Z30.09 - Discussed contraceptive options with R/B/A. Pt will consider natural family planning with use of ovulation tracker, condoms and either Phexxi or VCF strips, Nuvaring or Nexplanon Follow-up at IUD removal. Narda Gil APRN.NATHANAEL I spent a total of 20 minutes on the date of the service which included preparing to see the patient, [id number] patient care, completing clinical documentation, obtaining and/or reviewing separately obtained history, performing a medically appropriate examination, counseling and educating the patient/family/caregiver and ordering medications, tests, or procedures.[facility]11-02-2021 NoteHNO ID: [id number] Author: Narda Gil APRN.NATHANAEL Service: ? Author Type: Nurse Practitioner Type: Progress Notes Filed: 09/19/2021 8:34 AM Note Text: Charlie Márquez presents today for IUD check. She had a Kyleena placed on 08/22/2021. She has had occasional cramping that is intense since placement. Cramping initially every 1-2 days but has not had any for past 3 days. REVIEW OF SYSTEMS: No fever or chills PHYSICAL EXAMINATION: BP 102/58 Wt 159 lb (72.1kg) LMP 08/16/2021 ABDOMEN:soft, non-tender, no masses, no hepatosplenomegaly and no lymphadenopathy EXTERNAL GENITALIA: Normal genitalia and Bartholins, Urethra, Sken'e normal CERVIX: smooth, no lesions. IUD strings visible - 2 cm in length. UTERUS: normal size ADNEXA: negative for tenderness or masses IMPRESSION/PLAN: IUD correctly positioned. Follow up for annual exam or sooner if needed. Narda Gil CNP I spent a total of 15 minutes on the date of the service which included preparing to see the patient, [id number] patient care, completing clinical documentation, obtaining and/or reviewing separately obtained history, performing a medically appropriate examination and counseling and educating the patient/family/caregiver.[facility]10-05-2021 Note HNO ID: [id number] Author: Narda Gil APRN.NATHANAEL Service: ? Author Type: Nurse Practitioner Type: Progress Notes Filed: 08/22/2021 4:34 PM Note Text: Charlie presents today for IUD insertion for contraception. Patient's last menstrual period was 07/16/2021. GC/chlamydia: Not done: no risk factors and/or patient declines screening test: negative Side effects including irregular bleeding were discussed with the patient. The patient understands that it should be removed in 5 years or sooner if the patiient desires a . IUD source: office provided IUD lot #: [id number] Exp date: 07/2023 UNIVERSAL PROTOCOL / SAFETY CHECKLIST Procedure to be Performed: Kyleena IUD Insertion Sign In: A Moment of CARE was completed. Personnel directly involved with the procedure wore the appropriate PPE (Personal Protective Equipment). Patient/Surrogate Stated/Verified: PATIENT VERIFIED(optional for EMERGENT procedures): Patient name, Date of , Relevant allergies and The intended procedure Time Out Communication: Intended patient and procedure match the source documents. Consent documented and matches the intended procedure. Relevant labs, photos, and/or imaging studies have been reviewed. Implant(s) inserted: Correct implant(s) confirmed including size and side. and Expiration date(s) reviewed. No implant(s) inserted. Sign Out: SIGN OUT (optional for EMERGENT procedures): All instruments, equipment, possible retained foreign bodies accounted for. Post-procedure follow-up management communicated and Plan of Care Visit completed when applicable. The uterus sounded to 7 cm and the uterus is Anteverted.. After prepping the cervix with betadine and using sterile technique, the Kyleena IUD was inserted without difficulty and the string was cut to 3 cm from the external os of the cervix. Patient tolerated procedure well. PLAN: Patient was advised to observe for signs and symptoms of infection including but not limited to fever, malodorous vaginal discharge and/or pain. The patient was told to check the string monthly for accurate placement. Bleeding expectations were reviewed. Follow up in one month. Narda Gil APRN.[facility] NoteHNO ID: [id number] Author: Narda Gil APRN.MANAGER MECHANICAL MAINTENANCE Service: ? Author Type: Nurse Practitioner Type: Progress Notes Filed: 07/25/2021 10:09 AM Note Text: Charlie is a 21 year old who presents for an annual gynecologic exam without complaints. Interested in IUD. Menses: cycles every 28-30 days and 5 days of flow. Contraception: none HPV vaccine: No Last Pap: never HPV: N/A History of abnormal pap: NA Last mammogram: never Sexually active: Yes History of STDS: None Patient concerns for STD exposure: No. Time with current partner: 4 years Pain with intercourse: No Postcoital bleeding: No OB History T0 L0 SAB0 TAB0 Ectopic0 Multiple0 Live Births0 PAST MEDICAL HISTORY Diagnosis Date - NEGATIVE MEDICAL HISTORY PAST SURGICAL HISTORY Procedure Laterality Date - TONSILLECTOMY HX FAMILY HISTORY Problem Relation Age of Onset - Thyroid Mother cancer - Diabetes Mother SOCIAL HISTORY Social History Tobacco Use - Smoking status: Never Smoker - Smokeless tobacco: Never Used Vaping Use - Vaping Use: Never used Substance Use Topics - Alcohol use: No - Drug use: No REVIEW OF SYSTEMS Abdomen: No abdominal pain, nausea, vomiting, diarrhea, or constipation. No bloating, early satiety, indigestion, or increased flatulence. Bladder: No dysuria, gross hematuria, urinary frequency, urinary urgency, or incontinence. Breast: No breast lumps, nipple d/c, overlying skin changes, redness or skin retraction. Allergies and current medication updated:Yes EXAM: BP 110/72 Ht 5' 9.5" (1.77m) Wt 152 lb (68.9kg) LMP 07/16/2021 BMI 22.13 kg/(m2). GENERAL: pleasant, female in no apparent distress HEENT: Normocephalic, atraumatic, mucus membranes moist and no lesions NECK: Supple, full range of motion, no adenopathy and thyroid normal DERMATOLOGY: Normal, without lesions, non-icteric and non-hirsute BREAST: soft, non-tender, symmetric, no dominant mass, normal nipple-areolar complex, no lymphadenopathy and no nipple discharge CHEST: Normal inspiratory effort ABDOMEN: soft, non-tender and no masses PELVIC: external genitalia normal, normal Bartholin's glands, urethra, Risings[place]'s glands, no vulvar lesions, no cervical lesions, good vaginal support, physiologic discharge present, normal appearing perineal body and perianal region BIMANUAL: uterus normal size, shape and consistency, no adnexal masses and non-tender RECTOVAGINAL: deferred. NEURO: alert and oriented x3,exam grossly non-focal EXTREMITIES: normal ASSESSMENT/PLAN: 1) Health maintenance: Pap done with reflex HPV. Nutrition, exercise and routine health maintenance exams reviewed. HPV vaccine: discussed, not interested 2) Contraception: none. Contraceptive options reviewed and information provided. 3) STD screening: Declined STD check. 4) Follow up one year or sooner as needed Narda Gil APRN.[facility] No data available for this section [facility] Evaluation noteNo assessment information available [facility] Work Phone: Evaluation note* Diagnosis Onset Date Resolution Status Admit Date Anxiety acute August 26, 025 9:48am FH: spina bifida acute August 26, 2025 9:48am History of miscarriage, currently acute August 26, 2025 9:48am acute August 26, 025 9:48am Supervision of normal acut e August 26, 2025 9:48am [facility] Work Phone: Hospital Discharge instructions No data available for this section [facility] Progress note No data available for this section [facility] Prohigkx note Author Neva Dodge [facility] Note Date/Time August 12, 2025 8:52am [facility] [address], [address] [place] [address] OFFICE VISIT Date of Service: 08/12/25 MR#: [id number] Acct: [id number] Name: CHARLIE MÁRQUEZ Rep #: [id number] : 2000 Provider: TROY Dodge Age/Sex: 25/F [place] [facility] [place] Signed Intake Vital Signs 08/12/25 08:24 Height 5 ft 9 in Weight: 168 lb BMI 24.7 BP 118/75 Intake Visit Reasons: 32wk OB DANICA Psychiatric Nurse Practitioner Required: No Is patient in pain?: No Allergies Latex, Natural Rubber Allergy (Mild, Verified 08/12/25 08:33) Rash sertraline Adverse Reaction (Intermediate, Verified 08/12/25 08:33) Other Medications ?Medication ?Instructions ?Recorded ?Confirmed ?Type multivitamin no.47-iron fum 27 cap PO 08/11/25 5 History mg-folate no.1 1 mg-dha 300 mg capsule (PNV-DHA) Last Menstrual Period: 12/31/24 Zika: Zika virus screening: Negative : No Have you fallen in the past year?: No PFSH PFSH Surgical History Hx of tonsillectomy [place] teeth extracted Family History Mother Diabetes Cancer, Onset Age: 40 thyroid cancer Family history of recurrent miscarriage 3 miscarriages Father Hypertension Maternal Grandmother , at 55 yo Breast cancer, Onset Age: 50 Brother Spina bifida Social History adopted: No household members: spouse housing: house current occupational status: previously employed 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 occupational exposures/hazards: No pets and animals: Yes (Avoid litterbox) pets and animals: cat(s) and dog(s) history of recent travel: No sexually active: Yes Smoking Status: Never smoker alcohol intake: never substance use type: does not use well-balanced diet: about half the time caffeine: Yes Type: coffee Number of servings: 1 eating out: 1-3 times/week during the past year weight has: remained stable what type of physical activity do you participate in: other details: pilates,strength training light wt frequency: 1-2 times per week duration: 15-30 minutes/day kaleb/denominational: Buddhism seatbelt use: always do you feel safe at home: Yes additional social history: [employer] History 2 Elective abortions Hx Para 0 Spontaneous abortions 1 Hx # Term Pregnancies Ectopic pregnancies Hx # Pregnancies Multiple births # of living children 0 Past Pregnancies Del. Date Name GA/Weeks Outcome Route Bth Weight Gen Labor Lgth Anesthesia Del Locatn Provider FOB 07/30/24 miscarriage 6 spontaneous HPI 32wk OB DANICA Details: CHARLIE MÁRQUEZ is a 25 year old who presents for New OB visit. OB Visit [place] Calculator Estimated Delivery Date Method Current WG Current Estimate 10/07/25 LMP (Certain) 32w 0d Comments: HIV: Urine Culture: Sequential Screen: NIPT Screen: Estimated Due Date: 10/07/25 Expected Delivery Route/Plan Labor Preferences- CB/BF classes: [] labor support person: [] labor intervention preferences: [] pain management options preferred: [] cut cord/dad catch: [] : [] PP control planned: [] discussed possible routes of delivery and associated risks: [] special requests: [] Specific Issue/Plans Covid status: [] Flu vaccine: [] Tdap vaccine: [] Rhogam: [] LARC form signed: [] Problem list reviewed and updated with the most current plan of care details and appropriate orders placed. Relevant counseling for the gestational age provided. Continue routine care and follow up unless otherwise noted in visit notes/problem list details Initial Weight: 168 lb Date -?-?-?-?-?-?-?-?-?-?-?-?- EGA Weight BP Urine Prot -?-?-?-?-?-?-?-?-?-?-?-?- Glucose FHR FuHt Pres Dilation -?-?-?-?-?-?-?-?-?-?-?-?- Effaced St Visit Note 08/12/25 -?-?-?-?-?-?-?-?-?-?-?-?- 32w 0d 168 lb (+0 oz) 118/75 -?-?-?-?-?-?-?-?-?-?-?-?- 140 31 -?-?-?-?-?-?-?-?-?-?-?-?- KW- DANICA from [facility]. Records requested. reports normal labs/glucose and US. LARC today. Menstrual History Last Menstrual Period: 12/31/24 Reported LMP: definite Normal amount/duration: Yes Frequency in days: 28 On hormonal BC at conception: No hCG+: 01/25/25 Antepartum Record Genetic Screening: Congenital Heart Defect: Other, Neural Tube Defect: Patient (Brother- Spina bifida- No genetic, carrier or AFP), Hemoglobinopathy Or Carrier: Other, Cystic Fibrosis: Other, Chromosome Abnormality: Other, Ankur-Sachs: Other, Hemophilia: Other, Intellectual Disability/Autism: Other, Recurrent Loss/Stillbirth: Patient (Mother 3 miscarriages in a row), Other Structural Defect: Other, Other Genetic Disease: Other and Maternal Metabolic Disorder: Other Infection History: Live with someone with TB or Exposed to TB: No, Patient or Partner has history of Genital Herpes: No, Rash or Viral illness since last mentrual period: No, Prior GBS-Infected child: No, History of STD: No, HIV Infection: No, History of Hepatitis: No, Recent travel outside of [place]: No, Concern for hepatitis exposure: No, Varicella immune: Yes (immune-both) and Covid Vaccinated: No Medical History Medical History: Positive: Psychiatric (anxiety), Drug/latex allergies/reactions (latex-rash), Operations/hospitalizations (wisdom teeth, tonsillectomy) and Relevant family history (See PFSH) and Negative: Diabetes, Hypertension, Heart disease, Auto-immune disorder, Kidney disease/UTI, Neurologic/epilepsy, Depression/ depression, Hepatitis/liver disease, Varicosities/phlebitis, Thyroid dysfunction, Trauma/domestic violence, History of blood transfusions, D (Rh) Sensitized (A+), Pulmonary (e.g.,TB,Asthma), Seasonal allergies, Breast, Director Building surgery, Anesthetic complications, History of abnormal pap (Last pap was 01/2025-neg), Uterine anomaly/librado, Infertility, Anti-retroviral treatment and Other Comments: Pt had 28 week labs with Nml GCT. PNC Records to be transferred to us. ACOG First Trimester First Trimester: Nurtrition and weight gain; Discussed ROS Const Reports system reviewed and no additional complaints, except as documented Eyes Reports system reviewed and no additional complaints, except as documented ENT Reports system reviewed and no additional complaints, except as documented Card Reports system reviewed and no additional complaints, except as documented Resp Reports system reviewed and no additional complaints, except as documented GI Reports system reviewed and no additional complaints, except as documented, Denies nausea and Denies vomiting Reports system reviewed and no additional complaints, except as documented Musc Reports system reviewed and no additional complaints, except as documented Skin/Breast Reports system reviewed and no additional complaints, except as documented Neuro Yes system reviewed and no additional complaints, except as documented Psych Reports system reviewed and no additional complaints, except as documented Endo Reports system reviewed and no additional complaints, except as documented Patrick/Lymph Reports system reviewed and no additional complaints, except as documented Aller/Immun Reports system reviewed and no additional complaints, except as documented Exam Const General: cooperative, healthy appearing and no acute distress Orientation: alert, awake and oriented x3 Neck Neck: normal visual inspection and full ROM Resp Effort & Inspection: normal respiratory effort, able to speak in complete sentences and symmetric chest movement GI Inspection: normal to inspection Palpation: soft and other Other: gravid Skin General: no rashes or lesions noted Neuro General: patient alert, patient awake and patient oriented x3 Cognition: normal cognition Speech: speech normal Gait: normal gait Motor: muscle tone normal throughout Extrem General: normal to inspection and full ROM Psych Appearance: grossly normal Mental Status: mental status grossly normal Mood: congruent mood Affect: normal affect Speech and Movement: speech and movement normal Attitude: cooperative Thought Process: normal Thought Content: normal Judgment: judgment good Coding Level of Care Code OB Routine Assessment and Plan Assessment and Plan Orders: Orders Culture, Urine Today Z34.90 - Encounter for supervision of normal , unspecified, unspecified trimester Plan Details Additional Comments: ACOG trimester education reviewed and updated. see problem list details for updated plan management information and see below for orders placed at this visit. GA appropriate handout given. Clinical Quality Measures Falls Risk Screening/Assistive Devices Have you fallen in the past year?: No 08/12/25 0853 <Electronically signed by Neva mason CNM> Date _ Neva Dodge CNM Cosigner Signature: Date (if applicable) CC: ~ [employer] [employer] [facility] Work Phone: Progress note Author Meli Link [facility] Note Date/Time September 08, 2025 2:48pm [facility] [address], [address] [place] [address] OFFICE VISIT Date of Service: 09/08/25 MR#: [id number] Acct: [id number] Name: CHARLIE MÁRQUEZ Rep #: [id number] : 2000 Provider: Dr. John Link MD Age/Sex: 25/F [place] [facility] [place]: Signed Intake Vital Signs 08/12/25 08:24 08/26/25 09:53 09/08/25 11:15 Height 5 ft 9 in 5 ft 9 in 5 ft 9 in Weight: 169 lb 8 oz 171 lb 2 oz BMI 25.0 25.2 BP 120/80 136/82 H Intake Visit Reasons: 35 WK 6D OB Psychiatric Nurse Practitioner Required: No Is patient in pain?: No Allergies Latex, Natural Rubber Allergy (Mild, Verified 09/08/25 11:16) Rash sertraline Adverse Reaction (Intermediate, Verified 09/08/25 11:16) Other Medications ?Medication ?Instructions ?Recorded ?Confirmed ?Type multivitamin no.47-iron fum 27 cap PO 08/11/25 5 History mg-folate no.1 1 mg-dha 300 mg capsule (PNV-DHA) breast pump #1 ea 08/18/25 09/08/25 Rx Last Menstrual Period: 12/31/24 Zika: Zika virus screening: Negative : No Have you fallen in the past year?: No PFSH PFSH Surgical History Hx of tonsillectomy [place] teeth extracted Family History Mother Diabetes Cancer, Onset Age: 40 thyroid cancer Family history of recurrent miscarriage 3 miscarriages Father Hypertension Maternal Grandmother , at 55 yo Breast cancer, Onset Age: 50 Brother Spina bifida Social History adopted: No household members: spouse housing: house current occupational status: previously employed 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 occupational exposures/hazards: No pets and animals: Yes (Avoid litterbox) pets and animals: cat(s) and dog(s) history of recent travel: No sexually active: Yes Smoking Status: Never smoker alcohol intake: never substance use type: does not use well-balanced diet: about half the time caffeine: Yes Type: coffee Number of servings: 1 eating out: 1-3 times/week during the past year weight has: remained stable what type of physical activity do you participate in: other details: pilates,strength training light wt frequency: 1-2 times per week duration: 15-30 minutes/day kaleb/denominational: Buddhism seatbelt use: always do you feel safe at home: Yes additional social history: [employer] History 2 Elective abortions Hx Para 0 Spontaneous abortions 1 Hx # Term Pregnancies Ectopic pregnancies Hx # Pregnancies Multiple births # of living children 0 Past Pregnancies Del. Date Name GA/Weeks Outcome Route Bth Weight Infant Gen Labor Lgth Anesthesia Del Locatn Provider FOB 07/30/24 miscarriage 6 spontaneous HPI 35 WK 6D OB Details: CHARLIE MÁRQUEZ is a 25 year old who presents for routine OB visit. OB Visit [place] Calculator Estimated Delivery Date Method Current WG Current Estimate 10/07/25 LMP (Certain) 35w 6d Expected Delivery Route/Plan Labor Preferences- CB/BF classes: no labor support person: [place] labor intervention preferences: minimal preferred but open pain management options preferred: limited but ok with epidural, open to touch, massage, guided breathing, open to prayer cut cord/dad catch: cord : yes PP control planned: [] discussed possible routes of delivery and associated risks: discussed possible delivery modalities and possible indications for each including R/B/A of , VAVD, and CS. questions answered. special requests: [] Specific Issue/Plans Covid status: [] Flu vaccine: declines Tdap vaccine: declines Rhogam: NA LARC form signed: yes movement and labor precautions reviewed. Problem list reviewed and updated with the most current plan of care details and appropriate orders placed. Relevant counseling for the gestational age provided. Continue routine care and follow up unless otherwise noted in visit notes/problem list details Initial Weight: 168 lb Date -?-?-?-?-?-?-?-?-?-?-?-?- EGA Weight BP Urine Prot -?-?-?-?-?-?-?-?-?-?-?-?- Glucose FHR FuHt Pres Dilation -?-?-?-?-?-?-?-?-?-?-?-?- Effaced St Visit Note 08/12/25 -?-?-?-?-?-?-?-?-?-?-?-?- 32w 0d 168 lb (+0 oz) 118/75 -?-?-?-?-?-?-?-?-?-?-?-?- 140 31 -?-?-?-?-?-?-?-?-?-?-?-?- KW- DANICA from [facility]. Records requested. reports normal labs/glucose and US. LARC today. 08/26/25 -?-?-?-?-?-?-?-?-?-?-?-?- 34w 0d 169 lb 8 oz (+1 lb 8 oz) 120/80 Negative -?-?-?-?-?-?-?-?-?-?-?-?- Negative 147 32 -?-?-?-?-?-?-?-?-?-?-?-?- MH-No VB, LOF. G ood Fm Declines tdap, flu. Larc ACOG First Trimester First Trimester: Desire for , Alcohol, Tobacco Cessation, Illicit/Recreational Drug/Substance Use, Intimate Partner Violence, Barriers to care, Unstable Housing, Communication Barriers, Environmental/Work Hazards, Anticipated Course of Care, Toxoplasmosis Precations, Use of Any medications, Sexual activity, Exercise, Dental Care, Sauna/Hot tub use, Seat Belt use, Childbirth classes/Hospital facilities, Travel, Indications for Ultrasound and Screening for Aneuploidy; Discussed Third Trimester Third Trimester: Labor support person(s), Circumcision preference, Movement Monitoring, Signs and Symptoms of Preeclampsia, Feeding No , Family Medical Leave or Disability Forms, Depression and Intimate Partner Violence Results POC Urinalysis 2 Dip (Clinic) Office Urine Glucose Negative Last Edit by Bernice Quintero on 09/08/25 11:19 Office Urine Protein Negative Last Edit by Bernice Quintero on 09/08/25 11:19 Coding Level of Care Code OB Routine Diagnoses Poor growth affecting management of mother in third trimester, single or unspecified fetus O36.5930 Fetus number: single or unspecified fetus Trimester: third trimester Anxiety F41.9 FH: spina bifida Z82.79 History of miscarriage, currently O09.299 Encounter for supervision of normal first in third trimester Z34.03 Normal : normal first Trimester: third trimester 35 weeks gestation of Z3A.35 Weeks of gestation: 35 weeks Assessment and Plan Assessment and Plan (1) Small for dates affecting management of mother: Status: Acute Qualifiers: Fetus number: single or unspecified fetus Trimester: third trimester Qualified Code(s): O36.5930 - Maternal care for other known or suspected poor growth, third trimester, not applicable or unspecified Comment: growth US:33wk:21% EFW, 41%AC (2) Anxiety: Status: Acute (3) FH: spina bifida: Status: Acute Comment: Brother-Pt not offered AFP testing at prior provider. (4) History of miscarriage, currently : Status: Acute (5) Supervision of normal : Status: Acute Qualifiers: Normal : normal first Trimester: third trimester Qualified Code(s): Z34.03 - Encounter for supervision of normal first , third trimester Comment: PRR(scanned/[facility]) , [place] 11/20/25, [place] (6) : Status: Acute Qualifiers: Weeks of gestation: 35 weeks Qualified Code(s): Z3A.35 - 35 weeks gestation of Comment: DANICA to [facility] @ 32 wks, declined NIPT & Carrier testing Orders: Orders POC Urinalysis 2 Dip (Clinic) Today Clinical Quality Measures Falls Risk Screening/Assistive Devices Have you fallen in the past year?: No 09/08/25 1148 <Electronically signed by Meli collins MD> Date _ Meli Link MD Cosigner Signature: Date (if applicable) CC: ~ [facility] Work Phone: Reason for referral (narrative)No reason for referral information available[facility] Work Phone: Summary Purpose Family History Brother (s) Status:Active Comments:2. Father Status:Active Comments:1965 Mother Status:Active Comments:1967 ; DM2 insulin requiring Sister (s) Status:Active Comments:1. Brother (s) Status:Active Comments:2. Father Status:Active Comments:1965 Mother Status:Active Comments:1967 ; DM2 insulin requiring Sister (s) Status:Active Comments:1. Brother (s) Status:Active Comments:2. Father Status:Active Comments:1965 Mother Status:Active Comments:1967 ; DM2 insulin requiring Sister (s) Status:Active Comments:1. Brother (s) Status:Active Comments:2. Father Status:Active Comments:1965 Mother Status:Active Comments:1967 ; DM2 insulin requiring Sister (s) Status:Active Comments:1. Brother (s) Status:Active Comments:2. Father Status:Active Comments:1965 Mother Status:Active Comments:1967 ; DM2 insulin requiring Sister (s) Status:Active Comments:1. Brother (s) Status:Active Comments:2. Father Status:Active Comments:1965 Mother Status:Active Comments:1967 ; DM2 insulin requiring Sister (s) Status:Active Comments:1. Brother (s) Status:Active Comments:2. Father Status:Active Comments:1965 Mother Status:Active Comments:1967 ; DM2 insulin requiring Sister (s) Status:Active Comments:1. Relationship Condition Age at Onset Recorded Date/T bren[place] mother Diabetes mellitus Unknown Malignant neoplasm 40 Family history of recurrent miscarriage U nknown father Hypertension Unknown Not Specified Malignant neoplasm of breast 50 brother Spina bifida Unknown Advance Directives No Advanced Directives Records FoundNo Advanced Directives Records FoundNo Advanced Directives Records FoundNo Advanced Directives Records FoundNo Advanced Directives Records Found Chief Complaint and Reason for Visit Chief Complaint Admit Date 32wk OB DANICA August 12, 2025 8:21am Chief Complaint Admit Date 32wk OB DANICA August 12, 2025 8:21am 34 WK OB August 26, 2025 9: 48am Reason for Visit Admit Date Anxiety August 26, 2025 9: 48am FH: spina bifida August 26, 2025 9: 48am History of miscarriage, currently pregna nt August 26, 2025 9:48am August 26, 2025 9: 48am Supervision of normal August 26, 2025 9:48am Chief Complaint Admit Date 32wk OB DANICA August 12, 2025 8:21am 34 WK OB August 26, 2025 9: 48am GROWTH September 02, 2025 3 :09pm 35 WK 6D OB September 08, 2025 1 1:12am 37 WK OB September 16, 2025 1 1:04am 38 WK OB September 23, 2025 2 :57pm Reason for Visit Admit Date Anxiety August 26, 2025 9: 48am FH: spina bifida August 26, 2025 9: 48am History of miscarriage, currently pregna nt August 26, 2025 9:48am August 26, 2025 9: 48am Small for dates affecting management of mother August 26, 2025 9:48am Supervision of normal August 26, 2025 9:48am Anxiety September 08, 2025 1 1:12am FH: spina bifida September 08, 2025 1 1:12am History of miscarriage, currently pregna nt September 08, 2025 11:12am September 08, 2025 1 1:12am Small for dates affecting management of mother September 08, 2025 11:12am Supervision of normal September 08, 2025 11:12am Anxiety September 16, 2025 1 1:04am FH: spina bifida September 16, 2025 1 1:04am History of miscarriage, currently pregna nt September 16, 2025 11:04am September 16, 2025 1 1:04am Small for dates affecting management of mother September 16, 2025 11:04am Supervision of normal September 16, 2025 11:04am Anxiety September 23, 2025 2 :57pm FH: spina bifida September 23, 2025 2 :57pm History of miscarriage, currently pregna nt September 23, 2025 2:57pm September 23, 2025 2 :57pm Small for dates affecting management of mother September 23, 2025 2:57pm Supervision of normal September 23, 2025 2:57pm Additional Source Comments INFORMATION SOURCE (unrecogn ized section and content) DATE CREATED AUTHOR 05/08/2018 [facility] ([place]) DATE CREATED AUTHOR AUTHOR'S ORGANIZ ATION 12/18/2021 [facility] DATE CREATED AUTHOR AUTHOR'S ORGANIZ ATION 11/07/2024 [facility] DATE CREATED AUTHOR AUTHOR'S ORGANIZ ATION 06/12/2025 [facility] DATE CREATED AUTHOR AUTHOR'S ORGANIZ ATION 09/25/2025 [facility] Patient Care team informatio n (unrecognized section and content) Team Status: Active Member Role/Relationship Status Dates Bernice Quintero Attending physician Active Start: Esteban kelsey 2024 Team Status: Active Member Role/Relationship Status Dates Bernice Quintero Attending physician Active Start: Leighton varela 2024 Team Status: Inactive Member Role/Relationship Status Dates Neva Dodge CNM Attending physician Active Start: August 12, 2025 End: August 12, 2025 Team Status: Active Member Role/Relationship Status Dates Neva Dodge CNM Attending physician Active Start: August 12, 2025 Neva Dodge CNM Referring Provider Active S tart: August 12, 2025 Team Status: Inactive Member Role/Relationship Status Dates Addie Valdez SULFIDE HEAD OPERATOR, SULFIDE HEAD OPERATOR-C Attending physician Active Start: August 26, 2025 End: August 26, 2025 Team Status: Active Member Role/Relationship Status Dates No Primary Care Physician Primary care physician Activ e Team Status: Inactive Member Role/Relationship Status Dates Neva Dodge CNM Attending physician Active Start: August 12, 2025 End: August 12, 2025 Neva Dodge CNM Referring Provider Active S tart: August 12, 2025 End: August 12, 2025 Team Status: Inactive Member Role/Relationship Status Dates Addie Valdez SULFIDE HEAD OPERATOR, SULFIDE HEAD OPERATOR-C Attending physician Active Start: September 02, 2025 End: September 02, 2025 Addie Valdez SULFIDE HEAD OPERATOR, SULFIDE HEAD OPERATOR-C Referring Provider Active Start: September 02, 2025 End: September 02, 2025 No Primary Care Physician Primary care physician Activ e Start: September 02, 2025 End: September 02, 2025 Team Status: Inactive Member Role/Relationship Status Dates Dr. Meli Link MD Attending physician Active Start: September 08, 2025 End: September 08, 2025 No Primary Care Physician Primary care physician Activ e Start: September 08, 2025 End: September 08, 2025 No Primary Care Physician Referring Provider Active Start: September 08, 2025 End: September 08, 2025 Team Status: Inactive Member Role/Relationship Status Dates Neva Dodge CNM Attending physician Active Start: September 16, 2025 End: September 16, 2025 No Primary Care Physician Primary care physician Activ e Start: September 16, 2025 End: September 16, 2025 No Primary Care Physician Referring Provider Active Start: September 16, 2025 End: September 16, 2025 Team Status: Active Member Role/Relationship Status Dates No Primary Care Physician Primary care physician Activ e Start: September 16, 2025 Neva Dodge CNM Attending physician Active Start: September 16, 2025 Team Status: Inactive Member Role/Relationship Status Dates Dr. Payton Bah DO Attending physician Acti ve Start: September 23, 2025 End: September 23, 2025 No Primary Care Physician Primary care physician Activ e Start: September 23, 2025 End: September 23, 2025 No Primary Care Physician Referring Provider Active Start: September 23, 2025 End: September 23, 2025 Goals (unrecognized section and content) Type Care Experience svdLabor Preferences -CB/BF classes: nolabor support person: Javonlabor intervention preferences: minimal preferred but openpain management options preferred: limited but ok with epidural, open to touch, massage, guided breathing, open to prayercut cord/dad catch: cordbreastfeeding: yesPP control planned: []discussed possible routes of delivery and associated risks: discussed possible delivery modalities and possible indications for each including R/B/A of , VAVD, and CS. questions answered.special requests: [] Type Detail Care Experience Labor Preferences-CB /BF classes: nolabor support person: Javonlabor intervention preferences: []pain management options preferred: limited but ok with epiduralcut cord/dad catch: cordbreastfeeding: yesPP control planned: []discussed possible routes of delivery and associated risks: []special requests: [] Type Detail Care Experience Labor Preferences-CB /BF classes: []labor support person: []labor intervention preferences: []pain management options preferred: []cut cord/dad catch: []: []PP control planned: []discussed possible routes of delivery and associated risks: []special requests: [] FOR RECORDS PERTAINING TO PATIENTS WHO ARE OR HAVE BEEN ENROLLED IN A CHEMICAL DEPENDENCY/SUBSTANCEABUSE PROGRAM, SOME INFORMATION MAY BE OMITTED. This clinical summary was aggregated from multiple sources. Caution should be exercised in using it in the provision of clinical care. This summary normalizes information from multiple sources, and as a consequence, information in this document may materially change the coding, format and clinical context of patient data. In addition, data may be omitted in some cases. CLINICAL DECISIONS SHOULD BE BASED ON THE PRIMARY CLINICAL RECORDS. [employer] [facility]. provides no warranty or guarantee of the accuracy or completeness of information in this document.
--- OUTSIDE RECORDS SUMMARY | 2025-10-01 18:16 | XMS RPT_ITS | CCD ---
Author Organization [facility] Care Team Providers Care Planning Director Name Role Phone Candelario MOODY MD Unavailable [...] MACK Primary Care Unavailable DENISE OROZCO Attending Bernice Che Attending Physician Unavailable Neva Dodge CNM Attending Physician [phone] Neva Dodge CNM Referring Provider [phone] Moore ENGINEERING PROJECT MANAGER-C, Addie Attending Physician [phone] Bernice Quintero Attending Unavailable Neva Dodge Attending Unavailable Bernice Quintero Attending Unavailable Bernice Quintero Attending Unavailable Bernice Quintero Attending Unavailable Care Physician, No Primary Primary Care Unava ilable Moore ENGINEERING PROJECT MANAGER, Addie Attending Unavailable Moore ENGINEERING PROJECT MANAGER, Addie Referring Unavailable Neva Dodge Attending Unavailable Care Physician, No Primary Primary Care Unava ilable Neva Dodge Attending Unavailable Neva Dodge Referring Unavailable Bernice Quintero Attending Unavailable Moore ENGINEERING PROJECT MANAGER, Addie Attending Unavailable Care Physician, No Primary Primary Care Unava ilable Care Physician, No Primary Referring Unava ilable Meli Link Attending Unavailable Care Physician, No Primary Primary Care Unava ilable Neva Dodge Attending Unavailable Care Physician, No Primary Referring Unava ilable Care Physician, No Primary Referring Unava ilable Care Physician, No Primary Primary Care Unava ilable Payton Bah Attending Unavailabl e Bernice Quintero Attending Physician Unavailable Dar SIMMONS, Neva Attending Physician [phone] Neva Dodge CNM Referring Provider [phone] Moore ENGINEERING PROJECT MANAGER-C, Addie Attending Physician [phone] Moore ENGINEERING PROJECT MANAGER-C, Addie Referring Provider [phone] Care Physician, No Primary Primary Care Physicia n Unavailable Dr. Meli Link MD Attending Physician Care Physician, No Primary Referring Provider Un available Dr. Payton Bah DO Attending Physician Allergies Allergy Classification Reported Allergen(s) Allergy Type Date of Onset Reaction(s) Facility (7 sources) Amoxicillin / Clavulanate Drug Allergy [employer] [facility] [employer] [facility] (15 sources) Latex; Translations: [LATEX] Marlon [employer] Volt [facility] [employer] [facility] (11 sources) Sertraline Drug Allergy 08-12-2025 Other [employer] [facility] Comment on above: epistaxis (4 sources) natural latex rubber Allergy to substance 08-12-2025 [facility] (1 source) natural latex rubber Drug allergy (disorder) 09-23-2025 [facility] Repository (1 source) Sertraline Drug Allergy 09-23-2025 [facility] Repository Medications Current Medications Medication Drug [...] Medela breast pump. Use as directed. Multivit 10-Avun-Wjhwoa 1-Dh a (Pnv-Dha) 27 mg iron-1 mg [...] above: , [place] 10/07/25, Raymond DANICA to [facility] @ 32 wks, declined NIPT & Carrier testing PRR(scanned/MyOBGYN) , [place] 10/07/25, Raymond GBS neg, DANICA to [facility] @ 32 wks, declined NIPT & [...] sources) !Patient notification of lab results - [facility]. The test(s) that you had done [...] a work physical. Note for Physical examination": [facility]. Here for exam. 05-14-2012 Unclassified (4 sources) [...] Johnson on 09-23-2025 Glucose Ql (U) Negative [facility] Laboratory - UrinalysisOrder ed By: Payton Johnson on 09-23-2025 Protein Ql (U) Negative [facility] Tape Cutter Office Visit Reporton 09-23-2025 Tape Cutter Office Visit Report [facility]'s [address], [address] [place] [address] OFFICE VISIT Date of Service: 09/23/25 MR#: [id number] Acct: [id number] Name: CHARLIE MÁRQUEZ Rep #: [id number] : 2000 Provider: Dr. Payton Fisher, Age/Sex: 25/F Location: [facility] Status: Signed Intake Vital Signs 08/12/25 08:24 09/16/25 11:09 09/23/25 15:06 Height 5 ft 9 in 5 ft 9 in 5 ft 9 in Weight: 172 lb 6 oz BMI 25.4 BP 130/84 H Intake Visit Reasons: 38 WK OB Chief Complaint: 38wk OB Hog Feeder Required: No Is patient in pain?: No [...] PFSH PFSH Surgical History Hx of tonsillectomy [place] teeth extracted Family History Mother Diabetes Cancer, Onset Age: 40 thyroid cancer Family history of recurrent miscarriage 3 miscarriages Father Hypertension Maternal Grandmother , at 55 yo Breast cancer, Onset Age: 50 Brother Spina bifida Social History adopted: No household members: spouse housing: house current occupational status: previously employed 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 (more content not included)... Normal [facility] Rule out Beta Strep (Grp. B) on 09-18-2025 NELY Group B Beta Streptococcus is not isolated. Normal [facility] Comment on above: Performed By: #### M 100.3400 #### [facility] [address] [place], [address] Screening beta-hemolytic Str eptococcus cultureOrdered By: Neva Dodge on 09-17-2025 Beta-hemolytic Streptococcus culture Group B Beta Streptococcus is not isolated. [facility] - Chemistry and C hemistry - challengeOrdered By: Neva Dodge on 09-16-2025 Glucose Ql (U) Negative [facility] - UrinalysisOrder ed By: Neva Dodge on 09-16-2025 Protein Ql (U) Negative [facility] Tape Cutter Office Visit Reporton 09-16-2025 Tape Cutter Office Visit Report [facility]'s [address], [address] [place] [address] OFFICE VISIT Date of Service: 09/16/25 MR#: [id number] Acct: [id number] Name: CHARLIE MÁRQUEZ Rep #: [id number] : 2000 Provider: TROY Stiles ams Age/Sex: 25/F Location: [facility] Status: Signed Intake Vital Signs 08/12/25 08:24 09/08/25 11:15 09/16/25 11:09 Height 5 ft 9 in 5 ft 9 in 5 ft 9 in Weight: 174 lb 4 oz BMI 25.7 BP 133/80 H Intake Visit Reasons: 37 WK OB Chief Complaint: 37wk OB Hog Feeder Required: No Is patient in pain?: No [...] PFSH PFSH Surgical History Hx of tonsillectomy [place] teeth extracted Family History Mother Diabetes Cancer, Onset Age: 40 thyroid cancer Family history of recurrent miscarriage 3 miscarriages Father Hypertension Maternal Grandmother , at 55 yo Breast cancer, Onset Age: 50 Brother Spina bifida Social History adopted: No household members: spouse housing: house current occupational status: previously employed 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 Normal [facility] - Chemistry and C hemistry - challengeOrdered By: Meli Link on 09-08-2025 Glucose Ql (U) Negative [facility] - UrinalysisOrder ed By: Meli Link on 09-08-2025 Protein Ql (U) Negative [facility] Tape Cutter Office Visit Reporton 09-08-2025 Tape Cutter Office Visit Report [facility]'s [address], [address] [place] [address] OFFICE VISIT Date of Service: 09/08/25 MR#: [id number] Acct: [id number] Name: CHARLIE MÁRQUEZ Rep #: [id number] : 2000 Provider: Dr. Meli mccarty MD Age/Sex: 25/F Location: [facility] Status: Signed Intake Vital Signs 08/12/25 08:24 08/26/25 09:53 09/08/25 11:15 Height 5 ft 9 in 5 ft 9 in 5 ft 9 in Weight: 169 lb 8 oz 171 lb 2 oz BMI 25.0 25.2 BP 120/80 136/82 H Intake Visit Reasons: 35 WK 6D OB Hog Feeder Required: No Is patient in pain?: No [...] PFSH PFSH Surgical History Hx of tonsillectomy [place] teeth extracted Family History Mother Diabetes Cancer, Onset Age: 40 thyroid cancer Family history of recurrent miscarriage 3 miscarriages Father Hypertension Maternal Grandmother , at 55 yo Breast cancer, Onset Age: 50 Brother Spina bifida Social History adopted: No household members: spouse housing: house current occupational status: previously employed 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 Normal [facility] OB Limited With Biometricson 09-02-2025 OB Limited With Biometrics [facility] [address] [place] [address] OB Limited With Biometrics MR#: [id number] Acct: [id number] Name: CHARLIE MRÁQUEZ Rep #: [id number] : 2000 F 25 From: Reynaldo mclaughlin MD PCP: Care Physician,No Primary Status: [facility] Study: OB Limited With Biometrics Date of Exam: 09/02 Exam# [id number] Ordering Dr: Addie Valdez ENGINEERING PROJECT MANAGER ENGINEERING PROJECT MANAGER -C PROCEDURE: OB LIMITED WITH BIOMETRICS 09/02/2025 [...] 33 weeks and 5 days. Reading Location: [place] [address] CC: FAHAD Valdez; No Primary Care Physician Photo Lab Specialist: Signed Normal [facility] - Chemistry and C hemistry - challengeOrdered By: Addie Valdez on 08-26-2025 Glucose Ql (U) Negative [facility] - UrinalysisOrder ed By: Addie Valdez on 08-26-2025 Protein Ql (U) Negative [facility] Tape Cutter Office Visit Reporton 08-26-2025 Tape Cutter Office Visit Report [facility]'s [address], [address] [place] [address] OFFICE VISIT Date of Service: 08/26/25 MR#: [id number] Acct: [id number] Name: CHARLIE MÁRQUEZ Rep #: [id number] : 2000 Provider: FAHAD mckeon Age/Sex: 25/F Location: [facility] Status: Signed Intake Vital Signs 08/12/25 08:24 08/26/25 09:53 Height 5 ft 9 in 5 ft 9 in Weight: 169 lb 8 oz BMI 25.0 BP 120/80 Intake Visit Reasons: 34 WK OB Hog Feeder Required: No Is patient in pain?: No [...] PFSH PFSH Surgical History Hx of tonsillectomy [place] teeth extracted Family History Mother Diabetes Cancer, Onset Age: 40 thyroid cancer Family history of recurrent miscarriage 3 miscarriages Father Hypertension Maternal Grandmother , at 55 yo Breast cancer, Onset Age: 50 Brother Spina bifida Social History adopted: No household members: spouse housing: house current occupational status: previously employed 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 Date Name GA/Weeks Outcome Route Bth Weight Gen Labor Lgth Anesthesia Del Locatn Provider FOB 07/30/24 miscarriage 6 spontaneous HPI 34 WK OB Details: CHARLIE MÁRQUEZ is a [...] Use, Intimat (more content not included)... Normal [facility] Urine Cultureon 08-13-2025 URC Culture exhibits no growth. Normal [facility] Comment on above: Performed By: #### M 100.2200 #### [facility] [address] [place], [address] Tape Cutter Office Visit Reporton 08-12-2025 Tape Cutter Office Visit Report [facility] [address], [address] [place] [address] OFFICE VISIT Date of Service: 08/12/25 MR#: [id number] Acct: [id number] Name: CHARLIE MÁRQUEZ Rep #: [id number] : 2000 Provider: TROY Stiles ams Age/Sex: 25/F Location: [facility] Status: Signed Intake Vital Signs 08/12/25 08:24 Height 5 ft 9 in Weight: 168 lb BMI 24.7 BP 118/75 Intake Visit Reasons: 32wk OB DANICA Hog Feeder Required: No Is patient in pain?: No [...] PFSH PFSH Surgical History Hx of tonsillectomy [place] teeth extracted Family History Mother Diabetes Cancer, Onset Age: 40 thyroid cancer Family history of recurrent miscarriage 3 miscarriages Father Hypertension Maternal Grandmother , at 55 yo Breast cancer, Onset Age: 50 Brother Spina bifida Social History adopted: No household members: spouse housing: house current occupational status: previously employed 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 Normal [facility] Urine cultureOrdered By: Danis Dodge on 08-12-2025 Bacteria identified Cx Nom (U) Culture exhibits no growth. [facility] Bacteria identified Cx Nom (U) Culture exhibits no growth. [facility] - Hematology and Cell countson 07-02-2025 Hematocrit (Bld) [Volume fraction] 39.3 % [facility] MCV (RBC) [Entitic vol] 94 fL [facility] No Panel Informationon 07-02 Platelet Count (Clinic) 247 g/gL [facility] No Panel Informationon 05-28 Reference Lab Test Name normal [facility] ED MED ADMINISTRATION DETAIL on 11-04-2024 ED MED ADMINISTRATION DETAIL Wrapper Opener Medication Administration Record [address] [place] [address] [id number] 10/02/2024 Patient: CHARLIE MÁRQUEZ Sex: Female : 2000 Age: 24y MEASUREMENTS: Wt: 72.6 kg, Ht/Juanito: 69.0 in, BMI: 23.63 ALLERGIES: sertraline Medication Ordered Medication Administration Date/Time 1 of 1 Normal [facility] ED NURSES CLINICAL NOTEon ED NURSES CLINICAL NOTE Nurse Narrative Nurse Clinical Narrative [address] [place] [address] [id number] 10/02/2024 Patient: CHARLIE MÁRQUEZ Sex: Female : [...] to radiology and sonogram by stretcher with radiology teacher. -- 15:27 10/02/24 SCOOBY Joseph R.N. DISPOSITION [...] to come back). Reviewed referral to an aerial advertiser. Patient and spouse verbalized understanding. The patient was discharged by the physician. The patient was discharged home and accompanied by spouse. The patient left ambulatory and via private vehicle. Spouse driving. -- 17:06 10/02/24 SCOOBY Márquez R.N. Departure time: 16:50 10/02/2024. -- 17:06 10/02/24 SCOOBY Márquez R.N. (Electronically signed by Olga Márquez R.N. 10/02/24 17:07:07 EST) Generated by [facility] 3 of 3 Normal [facility] ED ORDER SHEET (CPOE ONLY)on 11-04-2024 ED ORDER SHEET (CPOE ONLY) Order Sheet Order Sheet [address] [address] [id number] 10/02/2024 Patient: CHARLIE MÁRQUEZ Sex: Female : [...] Entered Acknowledged Collected Completed [Electronically signed by Raad Unger M.D. (11/04/2024 08:14 EST)] 2 of 2 Normal [facility] ED PHYSICIAN CLINICAL REPORT on 11-04-2024 ED PHYSICIAN CLINICAL REPORT Narrative Physician Clinical Narrative [address] [address] [id number] 10/02/2024 Patient: CHARLIE MÁRQUEZ Sex: Female : [...] 10/02/2024 15 (more content not included)... Normal [facility] ED SUPER BILLon 11-04-2024 ED SUPER BILL [address] [address] [id number] 10/02/2024 Patient: CHARLIE MÁRQUEZ Sex: Female : 2000 Age: 24y Item Professional Category Description Facility Code Code Quantity Fee Total Nurse/E/M EMERGENCY 624477 1 $0.00 $0.00 DEPARTMENT VISIT HIGH/URGENT SEVERITY (86062-74) Grand Total $0.00 Providers Raad Unger M.D. Chief Complaint VAGINAL BLEEDING. Principal Diagnosis Expected vaginal bleeding. 1 of 1 Normal [facility] ED VISIT SUMMARYon ED VISIT SUMMARY Visit Overview Visit Overview [facility] [address] [place] [address] [id number] 10/02/2024 Patient: CHARLIE MÁRQUEZ Sex: Female : [...] GESTATION CLINICAL IMPRESSION 3 of 3 Normal [facility] ED VITALS FLOW SHEETon 11-04 ED VITALS FLOW SHEET Vitals Vital Sign Flow Sheet [address] [place] [address] [id number] 10/02/2024 Patient: CHARLIE MÁRQUEZ Sex: Female : 2000 Age: 24y Measurements Wt: 72.6 kg, Ht/Ujanito: 69.0 in, BMI: 23.63 Measured Time BP [...] 134/86 105 80 2 of 2 Normal [facility] BB TYPE & SCREENon 4 ABO A Normal [facility] Comment on above: Performed By: #### 2 69422 ####[facility],[address] [place] [address] ANTIBODY SCR Negative Normal [facility] Comment on above: Performed By: #### 2 93027 ####[facility],[address] [place] [address] BB TYPE & SCREEN Normal [facility] Comment on above: Result Comment: TYPE , Rh, AND SCREEN Performed By: #### 2 83994 ####[facility],[address] [place] [address] Rh Nom (Bld) Positive [facility] Comment on above: Performed By: #### 2 34416 ####[facility],[address] [place] [address] BMP with eGFRon 10-02-2024 AGE 24 years Normal [facility] Comment on above: Performed By: #### 2 85972 #### [facility],[address] [place] [address] Anion gap [Moles/Vol] 15 mmol/L Normal 10 - 2 0 mmol/L [facility] Comment on above: Performed By: #### 2 49546 #### [facility],[address] [place] [address] 82619 BMP with eGFR Normal [facility] Comment on above: Result Comment: BASI C METABOLIC PANEL Performed By: #### 2 84754 #### [facility],[address] [place] [address] Calcium [Mass/Vol] 8.9 mg/dL Normal 8.5 - 10. 1 mg/dL [facility] Comment on above: Performed By: #### 2 69180 #### [facility],[address] [place] [address] 66073 Chloride [Moles/Vol] 103 mmol/L Normal 98 - 10 7 mmol/L [facility] Comment on above: Performed By: #### 2 18055 #### [facility],[address] [place], [place] [id number] CO2 [Moles/Vol] 27.8 mmol/L Normal 21.0 - 32.0 mmol/L [facility] Comment on above: Performed By: #### 2 65011 #### [facility],[address] [place] [address] Creatinine [Mass/Vol] 0.82 mg/dL Normal 0.55 - 1.02 mg/dL [facility] Comment on above: Performed By: #### 2 44302 #### [facility],[address] [place], [place] [address] GFR/1.73 sq M.predicted among non-blacks MDRD (S/P/Bld) [Vol rate/Area] mL/min/{1.73_m2} Normal 60 - 999 [facility] Comment on above: Performed By: #### 2 45317 #### [facility],[address] [place], [place] [address] Result Comment: ACCO RDING TO THE NATIONAL KIDNEY DISEASE EDUCATION PROGRAM(NKDE), A NORMAL eGFR IS A VALUE GREATER THAN OR EQUAL TO 60 ML/MIN/1.73 SQ METERS. CHRONIC KIDNEY DISEASE: <60mL/MIN/1.73 SQ METERS KIDNEY FAILURE: <15mL/MIN/1.73 SQ METERS THIS TEST SHOULD ONLY BE USED FOR PATIENTS 18 YEARS OF AGE AND OLDER. Glucose [Mass/Vol] 91 mg/dL Normal 74 - 106 mg/dL [facility] Comment on above: Performed By: #### 2 94230 #### [facility],[address] [place] [address] Potassium [Moles/Vol] 3.7 mmol/L Normal 3.5 - 5.1 mmol/L [facility] Comment on above: Performed By: #### 2 79727 #### [facility],[address] [place] [address] Sodium [Moles/Vol] 142 mmol/L Normal 136 - 145 mmol/L [facility] Comment on above: Performed By: #### 2 47645 #### [facility],[address] [place] [address] Urea nitrogen [Mass/Vol] 17 mg/dL Normal 7 - 18 mg/dL [facility] Comment on above: Performed By: #### 2 23398 #### [facility],[address] [place] [address] CBC + DIFFon 10-02-2024 Baso # 0.02 x10EE3/UL Normal 0.00 - 0.10 [facility] Comment on above: Performed By: #### 2 14854 #### [facility],[address] [place] [address] Basophils/100 WBC (Bld) 0.2 % Normal 0.0 - 2.0 % [facility] Comment on above: Performed By: #### 2 69644 #### [facility],[address] [place] [address] CBC + DIFF Normal [facility] Comment on above: Result Comment: CBC- COMPLETE BLOOD COUNT Performed By: #### 2 94785 #### [facility],[address] [place] [address] EO # 0.16 x10EE3/UL Normal 0.00 - 0.50 [facility] Comment on above: Performed By: #### 2 18638 #### [facility],[address] [place], [place] [address] Eosinophils/100 WBC (Bld) 1.8 % Normal 0.0 - 7.0 % [facility] Comment on above: Performed By: #### 2 03159 #### [facility],[address] [place] [address] Erythrocyte distribution width (RBC) [Ratio] 13.3 % Normal 12.0 - 15.6 % [facility] Comment on above: Performed By: #### 2 16932 #### [facility],[address] [place] [address] Hematocrit (Bld) [Volume fraction] 45.2 % Normal 34.0 - 46.0 % [facility] Comment on above: Performed By: #### 2 18904 #### [place] [address] Hemoglobin (Bld) [Mass/Vol] 15.3 g/dL Normal 12.0 - 16.0 g/dL [facility] Comment on above: Performed By: #### 2 20738 #### [facility],[address] [place] [address] Lymph # 3.25 x10EE3/UL High 0.80 - 2.80 [facility] Comment on above: Performed By: #### 2 65283 #### [facility],[address] [place], [place] [address] Lymphocytes/100 WBC (Bld) 38.2 % Normal 20.0 - 45.0 % [facility] Comment on above: Performed By: #### 2 14474 #### [facility],[address] [place] [address] MANUAL DIFF N/A Normal [facility] Comment on above: Performed By: #### 2 03373 #### [facility],[address] [place] [address] MCH (RBC) [Entitic mass] 30 pg Normal 27 - 33 pg [facility] Comment on above: Performed By: #### 2 76846 #### [facility],[address] [place] [address] MCHC 34 X10 3 Normal 32 - 36 [facility] Comment on above: Performed By: #### 2 11938 #### [facility],[address] [place] [address] MCV (RBC) [Entitic vol] 89 fL Normal 80 - 99 fL [facility] Comment on above: Performed By: #### 2 01647 #### [facility],[address] [place] [address] Loíza # 0.57 x10EE3/UL Normal 0.20 - 1.00 [facility] Comment on above: Performed By: #### 2 72944 #### [facility],[address] [place] [address] MONOS % 6.7 % Normal 0.0 - 10.0 [facility] Comment on above: Performed By: #### 2 88844 #### [facility],[address] [place] [address] Morphology Pedro (Bld) [Interp] N/A Normal [facility] Comment on above: Performed By: #### 2 69352 #### [facility],[address] [place] [address] Neut # 4.51 x10EE3/UL Normal 1.50 - 7.10 [facility] Comment on above: Performed By: #### 2 [id number] #### [facility],[address] [place] [address] 38685 Neutrophils/100 WBC (Bld) 53.1 % Normal 46.0 - 76.0 % [facility] Comment on above: Performed By: #### 2 [id number] #### [facility],[address] [place] [address] 16222 PLATELET 237 x10EE3/UL Normal 150 - 450 [facility] Comment on above: Performed By: #### 2 [id number] #### [facility],[address] [place] [address] Platelet mean volume (Bld) [Entitic vol] 7.7 fL Normal 6.6 - 10.5 fL [facility] Comment on above: Result Comment: AUTO MATED DIFFERENTIAL Performed By: #### 2 [id number] #### [facility],[address] [place] [address] RBC 5.11 x 10EE6/UL Normal 4.10 - 5.30 [facility] Comment on above: Performed By: #### 2 92610 #### [facility],[address] [place] [address] WBC 8.5 x 10EE3/UL Normal 4.5 - 10.8 [facility] Comment on above: Performed By: #### 2 [id number] #### [facility],[address] [place] [address] Laboratory - Blood bankon ABO group Nom (Bld) A Normal [facility] HospitalSeniorLiving.Net [facility] CareInteraXon; [facility] CenterGiveForward. Work Phone: Blood group antibody screen Ql Negative Normal [facility] HospitalCourseNetworking; [facility] CenterGiveForward. Work Phone: Laboratory - Chemistry and C hemistry - challengeon 10-02-2024 GFR/1.73 sq M.predicted among blacks MDRD (S/P/Bld) [Vol rate/Area] mL/min/{1.73_m2} Normal 60 - 999 {ML/MINUTE} [facility] HospitalGiveForward.; [facility] [employer] [facility] IllGiveForward. Work Phone: GFR/1.73 sq M.predicted MDRD (S/P/Bld) [Vol rate/Area] mL/min/{1.73_m2} Normal 60 - 999 {ML/MINUTE} [facility] [employer] [facility] Chron[facility] IllGiveForward.; [facility] CenterCourseNetworking Work Phone: HCG.beta subunit Qn m[IU]/mL Normal 0 - 6 m[iU]/mL [facility]; [facility] Work Phone: Laboratory - Hematology and Cell countson 10-02-2024 Basophils (Bld) [#/Vol] 0.02 {x10EE3/UL} Normal 0.00 - 0.10 {x10EE3/UL} [facility]; [facility] Work Phone: Eosinophils (Bld) [#/Vol] 0.16 {x10EE3/UL} Normal 0.00 - 0.50 {x10EE3/UL} [facility]; [facility] CenterSeniorLiving.Net [facility] Work Phone: Lymphocytes (Bld) [#/Vol] 3.25 {x10EE3/UL} Abnormal 0.80 - 2.80 {x10EE3/UL} [facility]; [facility] CenterSeniorLiving.Net [facility] Work Phone: MCHC (RBC) [Mass/Vol] 34 {X10_3} Normal 32 - 3 6 {X10_3} [facility]; [facility] CenterSeniorLiving.Net [facility] Work Phone: Monocytes (Bld) [#/Vol] 0.57 {x10EE3/UL} Normal 0.20 - 1.00 {x10EE3/UL} [facility]; [facility] CenterSeniorLiving.Net [facility] Work Phone: Monocytes/100 WBC (Bld) 6.7 % Normal 0.0 - 10.0 % [facility]; [facility] CenterSeniorLiving.Net [facility] Work Phone: Neutrophils (Bld) [#/Vol] 4.51 {x10EE3/UL} Normal 1.50 - 7.10 {x10EE3/UL} [employer] [facility] IllGiveForward.; [employer] [facility] InGaugeIt [facility] IllGiveForward. Work Phone: Platelets (Bld) [#/Vol] 237 {x10EE3/UL} Normal 150 - 450 {x10EE3/UL} [employer] [facility] IllGiveForward.; [employer] [facility] [employer] [facility] Chron[facility] IllGiveForward. Work Phone: RBC (Bld) [#/Vol] 5.11 {x_10EE6/UL} Normal 4.10 - 5.30 {x_10EE6/UL} [employer] [facility] Chron[facility] IllGiveForward.; [facility] [employer] [facility] [place] [facility] Chron[facility] IllGiveForward. Work Phone: WBC (Bld) [#/Vol] 8.5 {x_10EE3/UL} Normal 4.5 - 10.8 {x_10EE3/UL} [employer] [facility] IllGiveForward.; [employer] [facility] [employer]. Work Phone: No Panel Informationon 10-02 AGE 24 {years} Normal [employer] [facility] [place] [employer] [facility] Chron[facility] IllGiveForward. Work Phone: BB TYPE Normal [facility] InG[employer]It [facility] IllGiveForward.; [employer] [facility] [employer]. Work Phone: BMP with eGFR Normal [employer]; [employer] [facility] [employer]. Work Phone: CBC + DIFF Normal [employer]; [employer] [facility] [employer]. Work Phone: PREG SERUM QUANTon 4 HCG QUANTITATIVE <1 Normal 0 - 6 [facility] Comment on above: Result Comment: Refe rence [...] 3RD TRIMESTER 1000-50,000 Performed By: #### 2 [id number] #### [facility],[address] [place] [address] US OB INITIAL< 14 WEEKS; 1st GESTATIONon 07-30-2024 US OB INITIAL< 14 WEEKS; 1st GESTATION [place] [address] Patient: CHARLIE MÁRQUEZ Phone#: : 2000 Age: 24 Gender: F Pt. Type: Out Account: [id number] Location: Ordering: SHARON ANTONIO Exam Date: 07/30/2024/13:07 Family Phys: MARTINA MOODY Charge Code: [id number] Physician: Ray Order #: [id number] Dose#: PROCEDURE: OB INITIAL <14 WEEKS ULTRASOUND, [...] Blum MD on 07/30/2024 at 13:42 Normal [facility] Laboratory - Microbiology an d Antimicrobial susceptibilityon 02-19-2024 S. pneumoniae Ag LA Ql (Unsp spec) Negative Normal [facility].; [facility], [facility]. SARS-CoV-2 (COVID-19) RNA BUBBA+probe Ql (Unsp spec) Negative Normal [facility].; [facility], [facility]. Laboratory - Microbiology an d Antimicrobial susceptibilityon 02-06-2023 S. pneumoniae Ag LA Ql (Unsp spec) Positive Abnormal [facility].; [facility], [facility]. CNOVon 12-06-2021 CNOV Office Visit (OBGYWM ) CHARLIE MÁRQUEZ ([id number]) 2000 F Date Time Provider Department 12/06/21 [...] of folic acid. 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 Referring Provider: SELF [[id number]] Allergies As of Date: 11/23/2021 Noted Allergy Reaction LATEX 01/15/2017 2 - Rash SERTRALINE 07/25/2021 14 - Other: See Comments Comments: Nose bleeds Date Reviewed: 11/23/2021 Reviewed by: Narda Gil APRN.WORKING MANAGER - Fully Assessed Reason for Visit: Discussion [813] Cmt: iud removal Primary Visit Diagnosis:Pain due to intrauterine contraceptive device (IUD), subsequent encounter [T83.84XD] Other Visit Diagnoses:Intermenstru al spotting due to intrauterine device (IUD), initial encounter (HCC) [T83.83XA, N92.3] General counseling and advice for contraceptive management [Z30.09] Order(s):REMOVE INTRAUTERINE DEVICE [[id number]] Order #: [id number] Prescriptions as of 11/23/2021 - levonorgestrel (KYLEENA) 17.5 mcg/24 hrs (5 yrs) 19.5 mg IUD 1 Each by INTRAUTERINE route as directed. Problem List As Of Date: 11/23/2021 (None) Encounter Status:Closed by NARDA GIL on 11/23/21 [facility] Beba 11-22-2021 ELDON Telephone (OBGYWM) CHARLIE MÁRQUEZ ([id number]) 2000 F Date Time Provider Department 11/22/21 [...] Date Reviewed: 09/19/2021 Reviewed by: Narda Gil APRN.WORKING MANAGER - Fully Assessed Reason for Visit: Appointment [186] Prescriptions as of 11/23/2021 - levonorgestrel (KYLEENA) 17.5 mcg/24 hrs (5 yrs) 19.5 mg IUD 1 Each by INTRAUTERINE route as directed. Problem List As Of Date: 11/22/2021 (None) Encounter Status:Closed by CATE SHAH LPN on 11/23/21 [facility] CNOVon 09-19-2021 CNOV Office Visit (OBGYWM ) CHARLIE MÁRQUEZ ([id number]) 2000 F Date Time Provider Department 09/19/21 [...] which included preparing to see the patient, [id number] patient care, completing clinical documentation, obtaining and/or reviewing separately obtained history, performing a medically appropriate examination and counseling and educating the patient/family/caregiv er. Referring Provider: SELF [200] Allergies As of Date: 09/19/2021 Noted Allergy Reaction LATEX 01/15/2017 2 - Rash SERTRALINE 07/25/2021 14 - Other: See Comments Comments: Nose bleeds Date Reviewed: 09/19/2021 Reviewed by: Narda Gil APRN.WORKING MANAGER - Fully Assessed Reason for Visit: IUD [...] Status:Closed by NARDA GIL on 09/19/21 Normal [facility] CNOVon 08-22-2021 CNOV Office Visit (OBGYWM ) CHARLIE MÁRQUEZ ([id number]) 2000 F Date Time Provider Department 08/22/21 [...] IUD source: office provided IUD lot #: [id number] Exp date: 07/2023 UNIVERSAL PROTOCOL / SAFETY [...] Follow up in one month. Narda Gil APRN.WORKING MANAGER Kirsten Haddad MA 08/22/2021 4:10 PM Signed [...] contact the office. Referring Provider: NARDA GIL [[id number]] Allergies As of Date: 08/22/2021 Noted Allergy Reaction LATEX 01/15/2017 2 - Rash SERTRALINE 07/25/2021 14 - Other: See Comments Comments: Nose bleeds Date Reviewed: 08/22/2021 Reviewed by: Narda Gil APRN.WORKING MANAGER - Fully Assessed Reason for Visit: Insertion Of IUD [291] Primary Visit Diagnosis:Encounter for IUD insertion [Z30.430] Order(s):INSERT INTRAUTERINE DEVICE [[id number]] Order #: [id number] [] levonorgestrel 17.5 mcg/24 hrs (5 yrs) 19.5 mg 1 Each intrauterine device (KYLEENA)Disp: Rfl: levonorgestrel (KYLEENA) 17.5 mcg/24 hrs (5 yrs) 19.5 mg IUD1 Each by INTRAUTERINE route as directed.Disp: 1 EachRfl: 0 HCG QUAL UR B/O [[id number]] Order #: [id number] Prescriptions as of 08/22/2021 - levonorgestrel (KYLEENA) [...] Start E (more content not included)... Normal [facility] CNCOon 08-02-2021 CNCO Letter Text Normal [facility] CNOVon 07-25-2021 CNOV Office Visit (OBGYWM ) KALEYCHARLIE Mony ([id number]) 2000 F Date Time Provider Department 07/25/21 9:30 AM NARDA GIL During your visit today, we recorded the following information about you: Blood pressure Weight Height Last Period 110/72 68.9 kg 1.765 m 07/16/21 Narda Gil APRN.WORKING MANAGER 07/25/2021 10:09 AM Signed Charlie is a [...] external genitalia normal, normal Bartholin's glands, urethra, Cow[place]'s glands, no vulvar lesions, no cervical lesions, [...] Nose bleeds Date Reviewed: 07/25/2021 Reviewed by: Narda Gil APRN.WORKING MANAGER - Fully Assessed Reason for Visit: Yearly Exam [187] Primary Visit Diagnosis:Encounter for gynecological examination (general) (routine) without abnormal findings [Z01.419] Other Visit Diagnoses:Screening for cervical cancer [Z12.4] Encounter for screening for human papillomavirus (HPV) [Z11.51] Encounter for general counseling and advice on contraceptive management [Z30.09] Order(s):PAP FLUID CERVICAL SCREENING [[id number]] Order #: [id number]. #:[id number] INSERT INTRAUTERINE DEVICE [[id number]] Order #: [id number] miSOPROStol (CYTOTEC) 200 mcg tabletInsert 2 tablets [...] on 07/25/2021 (more content not included)... Normal [facility] CYTOLOGYon 07-25-2021 CYTOLOGY Specimen originated from [facility] Specimen #: [id number] Submitting Physician: NARDA GIL CNP SPECIMEN SUBMITTED [...] from every slide are reviewed by a physician specialist. MADISON Luna(ASCP) (Electronic Signature) _ CLINICAL DATA ROUTINE EXAM, HPV Testing: Yes, Reflex HPV for ASCUS Date of Last Menstrual Period: 07/16/2021 STAINS A: CERVICAL, SCREENING, FLUID THIN PREP DETECTIVE NARCOTICS AND VICE Zakiya Jean Baptiste M.D., Director Patient Financial Services Date of Report: 08/01/2021 Date of Procedure: 07/25/2021 Date of Receipt: 07/26/2021 Submitted by: NARDA GIL CNP Location: [facility] Diagnostic interpretation performed at [facility], [address] [place] [address]. CLIA Number: [id number] The Pap Smear is a screening test for cervical cancer. False negative results occur with all screening tests, emphasizing the need for rescreening at recommended intervals, and clinical correlation. Normal [facility] Laboratory - Microbiology an d Antimicrobial susceptibilityon 02-15-2020 FLUAV+FLUBV Ag Ql (Unsp spec) See Note Normal [facility]GiveForward.; [facility], [facility]. Work Phone: S. pyogenes Ag Ql (Throat) See Note Normal [facility] [employer] [facility], Inc.; [facility], Inc. Work Phone: Streptococcus.beta-he molytic Org specific cx Ql (Unsp spec) See Note Normal [facility] [employer] [facility], Inc.; [facility], Inc. Work Phone: CURon 02-28-2018 CUR . MICRO - MicrobiologyPROCEDURE: Urine Culture [*1] Urine BODY SITE:COLLECTED DATE/TIME: 02/26/2018 10:01 EDT RECEIVED DATE/TIME: 02/26/2018 19:32 EDTSTART DATE/TIME: 02/26/2018 19:33 EDT FREE TEXT SOURCE:FINAL REPORTSFinal Report []Verified Date/Time/Personnel: 02/28/2018 07:17 EDTNo growth at 48 hours.PRELIMINARY REPORTSPreliminary Report []Verified Date/Time/Personnel: 02/27/2018 07:24 EDTNo growth to datePerforming Locations*1: This test was performed at: [address], [address] [place] [address] (ID) Comment on above: Performed By: #### C UR ####[place] [address] Laboratory - Chemistry and C hemistry - challengeon 02-26-2018 Bilirubin Ql (U) Negative Normal [facility] [employer] [facility], Inc.; [facility] [employer] [facility], Inc. Ketones Ql (U) Negative Normal [facility] [employer] [facility], Inc.; [facility] [employer] [facility], Inc. pH (U) 6.0 [pH] Normal [facility] [employer] [facility] Chronically IllSeniorLiving.Net Inc.; [facility] [employer] [facility], Inc. Specific gravity (U) [Rel density] 1.010 Normal [facility] [employer] [facility], Inc.; [facility] [employer] [facility], Inc. Laboratory - Hematology and Cell countson 02-26-2018 Hemoglobin Ql (U) Negative Normal [facility] [employer] [facility], Inc.; [facility], Inc. Laboratory - Specimen inform ationon 02-26-2018 Appearance (U) CLEAR Normal [facility] [employer] [facility], Inc.; [facility] [employer] [facility], Inc. Color (U) YELLOW Normal [facility] YorkAdBira Network [facility], Inc.; [facility] [employer] [facility], Inc. Laboratory - Urinalysison Glucose Test strip (U) [Mass/Vol] Negative Normal [facility] [employer] [facility], Inc.; [facility] [employer] [facility], Inc. Leukocyte esterase Test strip Ql (U) Negative Normal [facility], Inc.; [facility] [employer] [facility], Inc. Nitrite Ql (U) Negative Normal [facility] [employer] [facility], Inc.; [facility] [employer] [facility], Inc. Protein Ql (U) Negative Normal [facility] [employer] [facility], Inc.; [place] [employer] [facility] [employer] [facility], Inc. No Panel Informationon 02-26 Culture Urine See Note Normal [facility] [employer] [facility], Inc.; [facility] [employer] [facility], Inc. UA - ODOR Negative Normal [facility] [employer] [facility] Chronically IllSeniorLiving.Net Inc.; [place] [employer] [facility] [employer] [facility], Inc. UA - UROBILIGEN 0.2 Normal [facility] [employer] [facility] Chronically IllGiveForward.; [facility] [employer] [facility], Inc. Vital Signs Date Time Vital Sign Value Performing Clinician Jonoi dinora 09-23-2025 15:06-0500 Body height 175.26 cm Neva Dodge CNM Work Phone: [facility] 09-23-2025 15:06-0500 Body mass index (BMI) [Ratio] 25.4 kg/m2 Neva Dodge CNM Work Phone: [facility] 09-23-2025 15:06-0500 Body weight 78.18 kg Neva Dodge CNM Work Phone: [facility] 09-23-2025 15:06-0500 Diastolic blood pressure 84 mm[Hg] Neva Dodge CNM Work Phone: [facility] 09-23-2025 15:06-0500 Systolic blood pressure 130 mm[Hg] Neva Dodge CNM Work Phone: [facility] 09-16-2025 11:09-0400 Body mass index (BMI) [Ratio] 25.7 kg/m2 Neva Dodge CNM Work Phone: [facility] 09-16-2025 11:09-0400 Body weight 79.03 kg Neva Dodge CNM Work Phone: [facility] 09-16-2025 11:09-0400 Diastolic blood pressure 80 mm[Hg] Neva Dodge CNM Work Phone: [facility] 09-16-2025 11:09-0400 Systolic blood pressure 133 mm[Hg] Neva Dodge CNM Work Phone: [facility] 09-08-2025 11:15-0400 Body mass index (BMI) [Ratio] 25.2 kg/m2 Neva Dodge CNM Work Phone: [facility] 09-08-2025 11:15-0400 Body weight 77.62 kg Neva TAYLORM Work Phone: [facility] 09-08-2025 11:15-0400 Diastolic blood pressure 82 mm[Hg] Neva Dodge CNM Work Phone: [facility] 09-08-2025 11:15-0400 Systolic blood pressure 136 mm[Hg] Neva Dodge CNM Work Phone: [facility] 08-26-2025 09:53-0400 Body height 175.26 cm Neva TAYLORM Work Phone: [facility] 08-26-2025 09:53-0400 Body mass index (BMI) [Ratio] 25 kg/m2 Neva Dodge CNM Work Phone: [facility] 08-26-2025 09:53-0400 Body weight 76.88 kg Neva TAYLORM Work Phone: [facility] 08-26-2025 09:53-0400 Diastolic blood pressure 80 mm[Hg] Neva TAYLORM Work Phone: [facility] 08-26-2025 09:53-0400 Systolic blood pressure 120 mm[Hg] Neva TAYLORM Work Phone: [facility] 08-12-2025 08:24-0400 Body height 175.26 cm Neva Dodge CNM Work Phone: [facility] 08-12-2025 08:24-0400 Body mass index (BMI) [Ratio] 24.7 kg/m2 Neva Dodge CNM Work Phone: [facility] 08-12-2025 08:24-0400 Body weight 76.2 kg Neva Dodge CNM Work Phone: [facility] 08-12-2025 08:24-0400 Diastolic blood pressure 75 mm[Hg] Neva Dodge CNM Work Phone: [facility] 08-12-2025 08:24-0400 Systolic blood pressure 118 mm[Hg] Neva Dodge CNM Work Phone: [facility] 11-20-2024 15:37-0500 Body height 175.26 cm MARY MARTIN RN [facility] [employer] [facility] Chron[facility] IllGiveForward.; [facility] [employer] [facility] Chron[facility] IllGiveForward. 11-20-2024 15:37-0500 Body mass index (BMI) [Ratio] 24.66 kg/m2 MARY MARTIN RN [facility] [employer] [facility] Chron[facility] IllGiveForward.; [facility]. 11-20-2024 15:37-0500 Body surface area Derived from formula 1.91 m2 MARY MARTIN RN [facility] YorkAdBira Network [facility] Chron[facility] IllGiveForward.; [employer] [facility] [employer] [facility] Chron[facility] IllGiveForward. 11-20-2024 15:37-0500 Body temperature 98.1 [degF] MARY MARTIN RN [facility] YorkAdBira Network [facility] Chron[facility] IllGiveForward.; [employer] [facility] [employer] [facility] Chron[facility] IllGiveForward. Comment on above: Method: Oral 11-20-2024 15:37-0500 Body weight 75.75 kg MARY MARTIN RN [facility] YorkAdBira Network [facility] Chron[facility] IllGiveForward.; [facility]OS[facility]ITALThomas [facility] [employer] [facility] Chron[facility] IllGiveForward. 11-20-2024 15:37-0500 Diastolic blood pressure 77 mm[Hg] MARY MARTIN RN [facility] [place].; [facility], Inc. Comment on above: Patient Position: Sitting; Cuff Location : Left Arm; Cuff Size: Standard 11-20-2024 15:37-0500 Heart rate 118 /min MARY MARTIN RN [facility], Inc.; [facility], Inc. Comment on above: Pattern: Regular 11-20-2024 15:37-0500 Systolic blood pressure 113 mm[Hg] MARY MARTIN RN [facility], Inc.; [facility], Inc. Comment on above: Patient Position: Sitting; Cuff Location : Left Arm; Cuff Size: Standard 07-30-2024 09:44-0400 Body weight 72.58 kg Nay Khan RN [facility] [employer] [facility], Inc. 07-30-2024 09:44-0400 Diastolic blood pressure 84 mm[Hg] Nay Khan RN [facility] [employer] [facility], Inc. Comment on above: Patient Position: Sitting; Cuff Location : Left Arm; Cuff Size: Large 07-30-2024 09:44-0400 Heart rate 72 /min Nay Khan RN [facility], [employer] [facility], Inc. Comment on above: Pattern: Regular 07-30-2024 09:44-0400 Systolic blood pressure 128 mm[Hg] Nay Khan RN [facility], Inc.; [facility], Inc. Comment on above: Patient Position: Sitting; Cuff Location : Left Arm; Cuff Size: Large 02-19-2024 14:50-040 Body height 175.26 cm MEGAN LEBLANC RN [facility], Inc.; [employer] [facility], Inc. 02-19-2024 14:50-0400 Body mass index (BMI) [Ratio] 24.51 kg/m2 MEGAN LEBLANC RN [facility], Inc.; [facility], Inc. 02-19-2024 14:50-0400 Body surface area Derived from formula 1.91 m2 MEGAN LEBLANC RN [facility], Inc.; [facility], Inc. 02-19-2024 14:50-0400 Body temperature 98.9 [degF] MEGAN LEBLANC RN [facility], Inc.; [facility], [employer]. Comment on above: Method: Oral 02-19-2024 14:500400 Body weight 75.3 kg MEGAN GRATE MI [facility], Inc.; [facility], Inc. 02-19-2024 14:50-0400 Diastolic blood pressure 72 mm[Hg] MEGAN GRATE RN [facility], [facility].; [facility] Comment on above: Patient Position: Sitting; Cuff Location : Left Arm; Cuff Size: Standard 02-19-2024 14:50-0400 Heart rate 112 /min MEGAN LEBLANC [facility], [facility].; [facility] Comment on above: Pattern: Regular 02-19-2024 14:50-0400 Systolic blood pressure 109 mm[Hg] MEGAN LEBLANC RN [facility], [facility].; [facility] Comment on above: Patient Position: Sitting; Cuff Location : Left Arm; Cuff Size: Standard 02-06-2023 15:10040 Body height 175.26 cm Nay Khan RN [facility], [facility].; [facility] 02-06-2023 15:10-0400 Body mass index (BMI) [Ratio] 23.63 kg/m2 Nay Khan RN [facility].; [facility] 02-06-2023 15:10-0400 Body surface area Derived from formula 1.88 m2 Nay Khan RN [facility].; [facility] 02-06-2023 15:10-0400 Body temperature 98.9 [degF] Nay Khan RN [facility], [facility].; [facility]t [facility] [employer] [facility], [employer]. Comment on above: Method: Oral 02-06-2023 15:10-0400 Body weight 72.58 kg Nay Khan RN [facility] [employer] [facility], Inc.; [facility] [employer] [facility], Inc. 02-06-2023 15:10-0400 Diastolic blood pressure 77 mm[Hg] [facility] [employer] [facility], Inc. Comment on above: Patient Position: Sitting; Cuff Location : Left Arm; Cuff Size: Large 02-06-2023 15:10-0400 Heart rate 101 /min Nay Khan RN [facility] [employer] [facility] [employer] [facility], Inc. Comment on above: Pattern: Regular 02-06-2023 15:10-0400 Systolic blood pressure 112 mm[Hg] Nay Khan RN [facility] [employer] [facility] IllGiveForward.; [facility] [employer] [facility], Inc. Comment on above: Patient Position: Sitting; Cuff Location : Left Arm; Cuff Size: Large 06-02-2021 15:52-0400 Body height 175.26 cm [facility], [facility], Inc.; Volt [facility], Inc. 06-02-2021 15:52-0400 Body mass index (BMI) [Ratio] 22.71 kg/m2 [facility], [facility], [facility], Inc. 06-02-2021 15:52-0400 Body surface area Derived from formula 1.85 m2 [facility], [facility], Inc.; [facility] [employer] [facility], Inc. 06-02-2021 15:52-0400 Body weight 69.76 kg [facility] [employer] [facility], Inc.; [facility] [employer] [facility], Inc. 06-02-2021 15:52-0400 Diastolic blood pressure 76 mm[Hg] [facility] [employer] [facility], Inc.; [facility] [employer] [facility], Inc. Comment on above: Patient Position: Sitting; Cuff Location : Left Arm; Cuff Size: Standard 06-02-2021 15:52-0400 Heart rate 70 /min [facility] [employer] [facility], Inc.; Attorney[employer] [facility] [employer] [facility], Inc. Comment on above: Pattern: Regular 06-02-2021 15:52-0400 Systolic blood pressure 109 mm[Hg] MASHA HI [employer] AttorneyFee [facility] InG[employer] [facility] IllGiveForward. Comment on above: Patient Position: Sitting; Cuff Location : Left Arm; Cuff Size: Standard 05-05-2021 15:53-0400 Body height 175.26 cm Candelario MOODY MD Work Phone: [employer].; AttorneyFee [facility] [employer]. 05-05-2021 15:53-0400 Body mass index (BMI) [Ratio] 22.86 kg/m2 Candelario MOODY MD Work Phone: [facility] [employer].; AttorneyFee [facility] [employer]. 05-05-2021 15:53-0400 Body surface area Derived from formula 1.85 m2 Candelario MOODY MD Work Phone: [employer].; Attorney[employer]ee [facility] [employer]. 05-05-2021 15:53-0400 Body weight 70.22 kg Candelario MOODY MD Work Phone: [employer].; [employer]ee [facility] [employer]. 05-05-2021 15:53-0400 Diastolic blood pressure 85 mm[Hg] Candelario MOODY MD Work Phone: [employer].; [employer]ee [facility] [employer]. Comment on above: Patient Position: Sitting; Cuff Location : Left Arm; Cuff Size: Large 05-05-2021 15:53-0400 Heart rate 94 /min Candelario MOODY MD Work Phone: [employer].; [employer]. Comment on above: Pattern: Regular 05-05-2021 15:53-0400 Systolic blood pressure 142 mm[Hg] Candelario MOODY MD Work Phone: [employer].; Attorney[employer]ee [facility] [employer]. Comment on above: Patient Position: Sitting; Cuff Location : Left Arm; Cuff Size: Large 08-27-2019 11:15-0400 Body height 175.26 cm Candelario MOODY MD Work Phone: [employer].; [employer], Inc. 08-27-2019 11:15-0400 Body mass index (BMI) [Ratio] 20.67 kg/m2 Candelario MOODY MD Work Phone: [employer].; [employer], Inc. 08-27-2019 11:15-0400 Body surface area Derived from formula 1.78 m2 Candelario MOODY MD Work Phone: [employer].; [employer], Inc. 08-27-2019 11:15-0400 Body weight 63.5 kg Candelario MOODY MD Work Phone: [employer].; [employer], Inc. 02-26-2018 09:14-0400 Body height 177.8 cm [employer] [place] PharmaceuticalsYER INTREorg SYSTEMS Inc.; [facility] Mass [employer] [facility] [employer]ook, Inc. 02-26-2018 09:14-0400 Body mass index (BMI) [Ratio] 18.94 kg/m2 [employer] [place] PharmaceuticalsYER [employer], Inc.; [facility] [employer], Inc. 02-26-2018 09:14-0400 Body surface area Derived from formula 1.75 m2 [place] PharmaceuticalsYER [employer] SYSTEMS Inc.; [facility] [employer], Inc. 02-26-2018 09:14-0400 Body temperature 98.2 [degF] [place] PharmaceuticalsYER [employer] Inc.; [facility] [employer], Inc. Comment on above: Method: Oral 02-26-2018 09:14-0400 Body weight 59.88 kg [employer] Inc.; [facility] [employer], Inc. 02-26-2018 09:14-0400 Diastolic blood pressure 75 mm[Hg] [employer], [employer].; [place] [employer]. Comment on above: Patient Position: Sitting; Cuff Location : Left Arm; Cuff Size: Standard 02-26-2018 09:14-0400 Heart rate 89 /min CIPRIANO VERONICA [employer] [facility] IllGiveForward.; [place] [employer] [facility] [employer]. Comment on above: Pattern: Regular 02-26-2018 09:14-0400 Systolic blood pressure 112 mm[Hg] CIPRIANO BIRMINGHAMYER [employer].; [place] [employer] [facility] [employer]. Comment on above: Patient Position: Sitting; Cuff Location : Left Arm; Cuff Size: Standard 09-27-2017 10:36-0500 Body height 176.53 cm Candelario MOODY MD Work Phone: [employer]; [employer] 09-27-2017 10:36-0500 Body mass index (BMI) [Percentile] Per age and sex 21 % Candelario MOODY MD Work Phone: [employer]; [employer]. 09-27-2017 10:36-0500 Body mass index (BMI) [Ratio] 19.48 kg/m2 Candelario MOODY MD Work Phone: [employer]; [employer]. 09-27-2017 10:36-0500 Body surface area Derived from formula 1.75 m2 Candelario MOODY MD Work Phone: [employer]; [employer]. 09-27-2017 10:36-0500 Body temperature 97.9 [degF] Candelario MOODY MD Work Phone: [employer].; [employer]. Comment on above: Method: Oral 09-27-2017 10:36-0500 Body weight 60.69 kg Candelario MOODY MD Work Phone: [employer].; [employer]. 09-27-2017 10:36-0500 Diastolic blood pressure 81 mm[Hg] Candelario MOODY MD Work Phone: [employer].; [employer]. Comment on above: Patient Position: Sitting; Cuff Location : Left Arm; Cuff Size: Large 09-27-2017 10:36-0500 Heart rate 76 /min Candelario MOODY MD Work Phone: [employer].; [employer]. Comment on above: Pattern: Regular 09-27-2017 10:36-0500 Systolic blood pressure 122 mm[Hg] Candelario MOODY MD Work Phone: [employer].; [employer]. Comment on above: Patient Position: Sitting; Cuff Location : Left Arm; Cuff Size: Large 11-17-2015 08:45-0500 Body height 177.16 cm Nay Khan RN [facility] InG[employer] [facility] IllGiveForward.; [employer]. 11-17-2015 08:45-0500 Body mass index (BMI) [Percentile] Per age and sex 14 % Nay Khan RN [facility] In[employer] [facility] IllGiveForward.; [facility]t [facility] [employer] [facility] IllGiveForward. 11-17-2015 08:45-0500 Body mass index (BMI) [Ratio] 18.5 kg/m2 Nay Khan RN [facility] [employer] [facility], Inc.; [employer]t [facility] InG[employer] [facility] IllGiveForward. 11-17-2015 08:45-0500 Body surface area Derived from formula 1.72 m2 Nay Khan RN [facility] In[employer] [facility] IllGiveForward.; [employer]. 11-17-2015 08:45-0500 Body weight 58.06 kg Nay Khan RN [facility] In[employer] [facility] IllGiveForward.; [employer]. 11-17-2015 08:45-0500 Diastolic blood pressure 77 mm[Hg] Nay Khan RN [facility] [employer] [facility], Inc.; [employer]. Comment on above: Patient Position: Sitting; Cuff Location : Right Arm; Cuff Size: Standard 11-17-2015 08:45-0500 Heart rate 98 /min Nay Khan RN [facility] [employer] [facility] IllGiveForward.; [facility] [employer] [facility], [employer]. Comment on above: Pattern: Regular 11-17-2015 08:45-0500 Systolic blood pressure 128 mm[Hg] Nay Khan RN [facility] YorkAdBira Network [facility] IllGiveForward.; [facility] [employer] [facility], Inc. Comment on above: Patient Position: Sitting; Cuff Location : Right Arm; Cuff Size: Standard 07-11-2015 11:14-0400 Body height 173.99 cm [facility] [employer] [facility] IllGiveForward.; Volt [facility] [employer] [facility], Inc. 07-11-2015 11:14-0400 Body mass index (BMI) [Percentile] Per age and sex 28 % [facility] [employer] [facility] IllGiveForward.; Volt [facility] [employer] [facility], Inc. 07-11-2015 11:14-0400 Body mass index (BMI) [Ratio] 19.48 kg/m2 [facility] [employer] [facility] IllGiveForward.; [facility], Inc. 07-11-2015 11:14-0400 Body surface area Derived from formula 1.71 m2 CIPRIANO [facility] [employer] [facility] IllGiveForward.; Volt [facility] [employer] [facility], Inc. 07-11-2015 11:14-0400 Body weight 58.97 kg [facility] [employer] [facility] IllGiveForward.; Volt [facility] [employer] [facility], Inc. 07-11-2015 11:14-0400 Diastolic blood pressure 74 mm[Hg] CIPRIANO [facility] CenterAdBira Network [facility] IllGiveForward.; Volt [facility] [employer] [facility], Inc. Comment on above: Patient Position: Sitting; Cuff Location : Left Arm; Cuff Size: Standard 07-11-2015 11:14-0400 Heart rate 68 /min CIPRIANO [facility] In[employer] [facility] IllGiveForward.; AttorneyFee [facility] [employer] [facility], Inc. Comment on above: Pattern: Regular 07-11-2015 11:14-0400 Systolic blood pressure 113 mm[Hg] CIPRIANO [facility] In[employer] [facility] IllGiveForward.; AttorneyFee [facility] [employer] [facility], Inc. Comment on above: Patient Position: Sitting; Cuff Location : Left Arm; Cuff Size: Standard 05-14-2012 15:26-0400 Body height 173.35 cm CIPRIANO VERONICA [employer] [facility] Chron[facility] IllGiveForward.; [facility] [employer] [facility] Chron[facility] IllGiveForward. 05-14-2012 15:26-0400 Body mass index (BMI) [Percentile] Per age and sex 32 % CIPRIANOPIPE BIRMINGHAMYER [employer] [facility] IllGiveForward.; [employer] [facility], Inc. 05-14-2012 15:26-0400 Body mass index (BMI) [Ratio] 18.26 kg/m2 CIPRIANO [facility] InGaugeIt [facility] IllGiveForward.; Volt [employer] [facility] IllGiveForward. 05-14-2012 15:26-0400 Body surface area Derived from formula 1.[address] [facility] In[employer] [facility] IllGiveForward.; [employer]t [employer] [facility] IllGiveForward. 05-14-2012 15:26-0400 Body weight 54.[address] [facility] InG[employer] [facility] IllGiveForward.; [employer] 05-14-2012 15:26-0400 Diastolic blood pressure 71 mm[Hg] CIPRIANOPIPE [facility]INGH[facility] InGaugeIt [facility] IllGiveForward.; [employer]. Comment on above: Patient Position: Sitting; Cuff Location : Left Arm; Cuff Size: Standard 05-14-2012 15:26-0400 Heart rate 102 /min CIPRIANO VERONICA [employer].; [employer]. Comment on above: Pattern: Regular 05-14-2012 15:26-0400 Systolic blood pressure 123 mm[Hg] CIPRIANO VERONICA [employer].; [employer]. Comment on above: Patient Position: Sitting; Cuff Location : Left Arm; Cuff Size: Standard Encounters Encounter Date Encounter Type Care Provider Facility Start: 09-23-2025 End: 09-23-2025 ambulatory No Primary Care Physician Facility:[facility] Start: 09-16-2025 [facility] Facility :[facility] Start: 09-16-2025 End: 09-16-2025 ambulatory No Primary Care Physician Facility:[facility] Start: 09-08-2025 End: 09-08-[address] Meli Link MD -[facility] Work Phone: Start: 09-08-2025 End: 09-08-2025 ambulatory No Primary Care Physician Facility:[facility] Start: 09-02-2025 End: 09-02-2025 Patient encounter procedure Addiejose Valdez ENGINEERING PROJECT MANAGER-C -[facility] Work Phone: Start: 09-02-2025 End: 09-02-2025 ambulatory No Primary Care Physician Facility:[facility] Start: 08-26-2025 End: 08-26-2025 Patient encounter procedure Addie Moore ENGINEERING PROJECT MANAGER-C [facility] Work Phone: Start: 08-26-2025 End: 08-26-2025 ambulatory Neva Dodge CNM Work Phone: -[facility] Start: 08-12-2025 End: 08-12-2025 ambulatory Neva Dodge CNM Work Phone: -Laboratory Specimen Start: 08-12-2025 End: 08-12-2025 Patient encounter procedure Neva Dodge CNM -Laboratory Specimen Work Phone: Start: 08-12-2025 End: 08-12-2025 Patient encounter procedure Neva Dodge CNM -[facility] Work Phone: Start: 08-12-2025 End: 08-12-2025 ambulatory Neva Dodge CNM Work Phone: -[facility] Start: 08-12-2025 End: 08-12-2025 ambulatory Neva Dodge Facility:[facility] Start: 07-02-2025 ambulatory Bernice Leon Facility:[facility] Start: 07-02-2025 Non-patient / Non-visit Bernice [facility] Work Phone: Start: 05-28-2025 ambulatory Bernice Leon Facility:[facility] Start: 05-28-2025 Non-patient / Non-visit Bernice [facility] Work Phone: Start: 05-28-2025 End: 05-28-2025 ambulatory DENISE RAMOS EDGER RUNNER-CNM [facility] Start: 05-28-2025 End: 05-28-2025 Patient encounter procedure [facility] Start: 04-02-2025 ambulatory Bernice Leon Facility:[facility] Start: 03-05-2025 End: 03-05-[address] MARTINA MOODY MD [facility] Start: 02-19-2025 ambulatory Bernice Leon Facility:[facility] Start: 02-19-2025 End: 02-19-[address] MARTINA MOODY MD Facility:[facility] Start: 01-26-2025 ambulatory Bernice Leon Facility:[facility] Start: 11-20-2024 End: 11-20-2024 Office outpatient visit 15 minutes Candelario MOODY MD [facility] Start: 10-02-2024 End: 10-02-2024 Emergency department patient visit [facility] Start: 07-30-2024 End: 07-30-2024 ambulatory [facility] Start: 07-30-2024 End: 07-30-2024 Office outpatient visit 15 minutes Candelario MOODY MD Work Phone: [facility]. Start: 02-19-2024 End: 02-19-2024 Office outpatient visit 15 minutes Candelario MOODY MD Work Phone: [facility] Center[facility]. Start: 02-06-2023 End: 02-06-2023 Office outpatient visit 10 minutes Candelario MOODY MD Work Phone: [facility] [employer] [facility] IllGiveForward. Start: 06-02-2021 End: 06-02-2021 Office outpatient visit 10 minutes Candelario MOODY MD Work Phone: [facility] [employer] [facility] Chron[facility] IllGiveForward. Start: 05-05-2021 End: 05-05-2021 Office outpatient visit 10 minutes Candelario MOODY MD Work Phone: [employer] Start: 08-27-2019 End: 08-27-2019 Office outpatient visit 15 minutes Candelario MOODY MD Work Phone: [employer] Start: 03-03-2018 End: 03-03-2018 Office outpatient visit 15 minutes Candelario MOODY MD Work Phone: [employer] Start: 02-26-2018 End: 02-26-2018 Office outpatient visit 15 minutes Candelario MOODY MD Work Phone: [facility] [employer] Start: 09-27-2017 End: 09-27-2017 Office outpatient visit 15 minutes Candelario MOODY MD Work Phone: [employer] Start: 11-17-2015 End: 11-17-2015 Office outpatient visit 15 minutes Candelario MOODY MD Work Phone: [employer] Start: 07-11-2015 End: 07-11-2015 Office outpatient visit 15 minutes Candelario MOODY MD Work Phone: [employer] Start: 05-14-2012 End: 05-14-2012 Patient encounter procedure Candelario MOODY MD Work Phone: [employer] Start: 05-14-2012 End: 05-14-2012 Routine infant or child health check Candelario MOODY MD Work Phone: [employer]; [employer]. Start: 04-07-2011 End: 04-07-2011 Historical Summary Candelario MOODY MD Work Phone: [facility] [employer] Procedures Date Procedure Procedure Detail Performing Clinician Start: 09-02-2025 Ultrasound scan for growth Neva Dodge CNM Work Phone: Start: 08-12-2025 Urine culture Neva christina TROY Work Phone: Start: 07-30-2024 End: 07-30-2024 Dischrg meds reconciled w/current med list SHARON ANTONIO MD Work Phone: Start: 02-06-2023 End: 02-06-2023 Dischrg meds reconciled w/current med list JERRELL CASTRO DOGGY DAYCARE ACTIVITIES DIRECTOR-C Work Phone: Start: 06-02-2021 End: 06-02-2021 Dischrg meds reconciled w/current med list JERRELL Malcom CASTRO DOGGY DAYCARE ACTIVITIES DIRECTOR-C Work Phone: Start: 06-02-2021 End: 06-02-2021 Urinary Incontinence JERRELL Palomino DOGGY DAYCARE ACTIVITIES DIRECTOR-C Work Phone: Comment on above: Negative. Tonsillectomy MEGAN Dewey Comment on above: and Adenoids age 6 Plan of Treatment Date Care Activity Detail Author Start: 09-23-2025 End: 09-23-2025 Patient encounter procedure Anxiety -[facility] Work Phone: Start: 09-16-2025 Patient encounter procedure Registered Clinical -Laboratory Specimen Work Phone: Start: 09-16-2025 Beta-hemolytic Streptococcus culture Group B Streptococcus Culture [facility] Start: 09-16-2025 End: 09-16-2025 Patient encounter procedure Anxiety -[facility] Work Phone: Start: 07-30-2024 Us uterus 14 wk transabdl 11/18 gestat OB US < 14 WKS SINGLE FETUS ([id number]) Start: 30-Jul-2024 Intent [employer] [facility] Chron[facility] IllCourseNetworking; [facility] [employer] [facility] Chron[facility] IllGiveForward. Start: 02-19-2024 Patient Education STREP PHARYNGITIS Indication: Sore throat Start: 19-Feb-2024 Instruction Type: Patient Education [employer] [facility] Chron[facility] IllCourseNetworking; Volt [facility] SystemGiveForward. Start: 02-26-2018 Culture bct isol&prsmptv id isolate ea urine URINE JERSON CULTURE-ID ([id number]) Start: 26-Feb-2018 09:58-04:00 Request [employer]; [facility] ClinicUniregistry Start: 05-14-2012 Im adm prq id subq/im njxs ea vaccine IMMUNIZATION ADMIN EACH ADD ([id number]) Start: 14-May-2012 Intent [facility] YorkEuroffice; [facility] [employer] [facility] IllGiveForward Immunizations Immunization Date Immunization Notes Care Provider Fa cility 05-14-2012 meningococcal polysaccharide vaccine (MPSV4) Candelario MOODY MD Work Phone: [facility] [employer]; [facility] [employer] [facility] Chron[facility] IllGiveForward Comment on above: Site: Deltoid (Left) 05-14-2012 *IMMUNIZATION ADMIN ([id number]) Candelario MOODY MD Work Phone: [facility] YorkEuroffice; [facility] [employer] [facility] Chron[facility] IllCourseNetworking 02-17-2003 Diphtheria, tetanus toxoids and acellular pertussis vaccine, and poliovirus vaccine, inactivated Candelario MOODY MD Work Phone: [facility] YorkAdBira Network [facility] Chron[facility] IllCourseNetworking; [facility] [employer] [facility] IllGiveForward 02-17-2003 measles, mumps and rubella virus vaccine Candelario MOODY MD Work Phone: [facility] YorkEuroffice; [facility] [employer] [facility] Chron[facility] IllGiveForward. 07-19-1999 diphtheria, tetanus toxoids and acellular pertussis vaccine Candelario MOODY MD Work Phone: [facility] YorkEuroffice; [facility] [employer] [place] [facility]. 07-19-1999 haemophilus influenz ae type b vaccine, HbOC conjugate Candelario MOODY MD Work Phone: [facility] YorkAdB[facility] Network [facility] IllCourseNetworking; [facility] [employer] [facility] IllGiveForward. 04-26-1999 measles, mumps and rubella virus vaccine Candelario MOODY MD Work Phone: [facility] YorkEuroffice; [facility] [employer] [facility] IllGiveForward. 1998 diphtheria, tetanus toxoids and acellular pertussis vaccine, Haemophilus influenzae type b conjugate, and poliovirus vaccine, inactivated ([id number]-[id number]) Candelario MOODY MD Work Phone: [facility]; [facility] 1998 hepatitis B vaccine, pediatric or pediatric/adolescent dosage Candelario MOODY MD Work Phone: [facility].; [facility] 1998 diphtheria, tetanus toxoids and acellular pertussis vaccine, Haemophilus influenzae type b conjugate, and poliovirus vaccine, inactivated ([id number]-Jlg-[id number]) Candelario MOODY MD Work Phone: [facility]; [facility] 2000 diphtheria, tetanus toxoids and acellular pertussis vaccine, Haemophilus influenzae type b conjugate, and poliovirus vaccine, inactivated (KEhA-Igx-DAC) Candelario MOODY MD Work Phone: [facility]; [facility] 2000 hepatitis B vaccine, pediatric or pediatric/adolescent dosage Candelario MOODY MD Work Phone: [facility]; [facility] 1998 hepatitis B vaccine, pediatric or pediatric/adolescent dosage Candelario MOODY MD Work Phone: [facility]; [facility] Payers Date Payer Category Payer Private Health Insurance [id number] 2025 Self-pay 2025 Unknown [id number] 1998 Unknown [id number] 2.16.8 [id number] 1998 Unknown [id number] [id number] 1998 Unknown [id number] 2.16.8 40.1.126575.3.579.2.627 1998 Unknown [id number] 2.16.8 40.1.798730.3.579.2.627 Unknown [facility] Unknown [id number] 2.16.8 40.1.219379.3.579.2.462 Unknown [id number] 2.16.8 40.1.495433.3.579.2.462 Unknown [id number] 2.16.8 40.1.851537.3.579.2.462 Unknown [id number] 2.16.8 40.1.058972.3.579.2.462 Unknown [id number] 2.16.8 40.1.540293.3.579.2.462 Unknown [id number] 2.16.8 40.1.753572.3.579.2.462 Unknown [id number] 2.16.8 40.1.566545.3.579.2.462 Unknown [id number] 2.16.8 40.1.056156.3.579.2.462 Unknown [id number] 2.16.8 40.1.883183.3.579.2.462 Unknown [id number] 2.16.8 40.1.767499.3.579.2.462 Unknown [id number] 2.16.8 40.1.938013.3.579.2.462 Unknown [id number] 2.16.8 40.1.547055.3.579.2.462 Unknown [id number] 2.16.8 40.1.698252.3.579.2.462 Social History Date Type Detail Facility Alcohol Use: Alcohol Use: ; N o Alcohol Use. [facility] [employer] [facility]GiveForward.; [facility] Current Work/Study Status Current Work/Study Status [facility].; [facility] Highest Education Le jules Attained: Highest Education Level Attained: ; GED. [facility] [employer] [facility]CourseNetwork[facility]; [facility] [employer] [facility] IllGiveForward. Marital status: Marital status: ; . [facility] [employer] [facility] IllCourseNetworking; [facility]. Tobacco use: Tobacco use: ; N ever smoker. [facility] [employer] [facility] IllGiveForward.; [facility] [employer] [facility], [place]. Start: 2000 Female [facility] Start: 08-11-2025 End: 08-11-2025 Never smoked tobacco [facility], [place].; [facility] [employer] [facility] IllCourseNetworking Work Phone: Sex Female [facility] Clinical Notes 07-25-2021 to 09-08-2025 Note Date & Type Note Facility 09-08-2025 Progress note [facility] 08-26-2025 Evaluation note Diagnosis Onset Date Resolution [...] Supervision of normal acute September 23 2:57pm [facility] Work Phone: 1(232) 466-785909-25-2025 Progress [facility] [address] [place] [address], [address] [place] [address] OFFICE VISIT Date of Service: 08/12/25 MR#: [id number] Acct: [id number] Name: CHARLIE MÁRQUEZ Rep #: [id number] : 2000 Provider: TROY Dodge Age/Sex: 25/F Location: [facility] Status: Signed Intake Vital Signs 08/12/25 08:24 Height 5 ft 9 in Weight: 168 lb BMI 24.7 BP 118/75 Intake Visit Reasons: 32wk OB DANICA Hog Feeder Required: No Is patient in pain?: No [...] PFSH PFSH Surgical History Hx of tonsillectomy [place] teeth extracted Family History Mother Diabetes Cancer, Onset Age: 40 thyroid cancer Family history of recurrent miscarriage 3 miscarriages Father Hypertension Maternal Grandmother , at 55 yo Breast cancer, Onset Age: 50 Brother Spina bifida Social History adopted: No household members: spouse housing: house current occupational status: previously employed 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 current occupational exposures/hazards: No pets and [...] 1-2 times per week duration: 15-30 minutes/day kaleb/mandaeism: Orthodoxy seatbelt use: always do you feel safe at home: Yes additional social history: 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 History 2 Elective abortions Hx Para 0 [...] Sensitized (A+), Pulmonary (e.g.,TB,Asthma), Seasonal allergies, Breast, Professor Of Languages surgery, Anesthetic complications, History of a bnormal [...] Cosigner Signature: Date (if applicable) CC: ~ [facility]08-15-2025 NoteHemoglobin EvaluationAufort [facility]2024 10:00amSeptember 2024 12:59pm12.9 g/[facility] 07-02-2025 NoteHemoglobin EvaluationAufort [facility]2024 9:00amSeptember 2024 11:59am12.9 g/[facility]08-15-2025 NoteHemoglobin Evaluation July 02, 2025 9:00amSeptember 2024 11:59am12.9 g/[facility]12-18-2024 NoteDischarge Instructions Discharge Summary [address] [place] [address] [id number] 10/02/2024 Patient: CHARLIE MÁRQUEZ Sex: Female : 2000 Age: 24y Thank you for visiting [facility]. You have been evaluated today by [...] I would recommend following up with your sales contract administrator. I would also recommend following up with your sales contract administrator in preparation of becoming so that is [...] Signature 1 of 2 Discharge Instructions Facility Business Process Consultant Date/Time General Instructions with ExitWriter [facility] [address] [place] [address] [phone] 10/02/2024 Patient: CHARLIE MÁRQUEZ Sex: Female : 2000 Age: 24y Thank you for visiting [facility]. You have been evaluated today by [...] I would recommend following up with your sales contract administrator. I would also recommend following up with your sales contract administrator in preparation of becoming so that is [...] you continue to have irregular periods. [address]01-19-2022 NoteHNO ID: [id number] Author: Narda Gil APRN.NATHANAEL Service: ? Author [...] Care Visit completed when applicable. Narda Gil APRN.WORKING MANAGER PROCEDURE: Speculum placed in vagina, IUD string visualized and grasped with ring forceps. ASSESSMENT/PLAN: IUD removed without difficulty, intact, and patient tolerated procedure well. Contraception plans: condoms Reviewed pre-conception guidelines including folic acid supplementation, optimal timing of intercourse, avoidance of smoking, alcohol, exposure to environmental chemicals and need for evaluation if not within 12 months. Narda Gil APRN.[facility]01-06-2022 NoteHNO ID: [id number] Author: Narda Gil APRN.[facility] Service: ? 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 History Comments: Sexual Activity: Yes; Male Contraception: [...] due to intrauterine device (IUD), initial encounter ([facility]) - ICD9: 996.76, 626.6, ICD10: [...] which included preparing to see the patient, [id number]-[id number] patient care, completing clinical documentation, obtaining and/or reviewing separately obtained history, performing a medically appropriate examination, counseling and educating the patient/family/caregiver and ordering medications, tests, or procedures.[facility]11-02-2021 NoteHNO ID: [id number] Author: Narda Gil APRN.NATHANAEL Service: ? Author [...] which included preparing to see the patient, [id number] patient care, completing clinical documentation, obtaining and/or reviewing separately obtained history, performing a medically appropriate examination and counseling and educating the patient/family/caregiver.[facility]10-05-2021 Note HNO ID: [id number] Author: Narda Gil APRN.NATHANAEL Service: ? Author [...] IUD source: office provided IUD lot #: [id number] Exp date: 07/2023 UNIVERSAL PROTOCOL / SAFETY [...] Follow up in one month. Narda Gil APRN.[facility]ELAkron [facility]09-07-2021 NoteHNO ID: [id number] Author: Narda Gil APRN.WORKING MANAGER Service: ? Author Type: Nurse Practitioner Type: [...] external genitalia normal, normal Bartholin's glands, urethra, Cow[place]'s glands, no vulvar lesions, no cervical lesions, [...] year or sooner as needed Narda Gil APRN.[facility] + [facility] note No data available for this section [facility] Evaluation noteNo assessment information available [facility] Work Phone: Evaluation note* Diagnosis Onset Date Resolution Status Admit Date Anxiety acute August 26, 025 9:48am FH: spina bifida acute August 26, 2025 9:48am History of miscarriage, currently acute August 26, 2025 9:48am acute August 26, 025 9:48am Supervision of normal acut e August 26, 2025 9:48am [facility] Work Phone: Hospital Discharge instructions No data available for this section [facility] Progress note No data available for this section [facility] Pronyipj note Author Neva Dodge [facility] Note Date/Time August 12, 2025 8:52am [facility] [address], [address] [place] [address] OFFICE VISIT Date of Service: 08/12/25 MR#: [id number] Acct: [id number] Name: CHARLIE MÁRQUEZ Rep #: [id number] : 2000 Provider: TROY Dodge Age/Sex: 25/F Location: [facility] Status: Signed Intake Vital Signs 08/12/25 08:24 Height 5 ft 9 in Weight: 168 lb BMI 24.7 BP 118/75 Intake Visit Reasons: 32wk OB DANICA Hog Feeder Required: No Is patient in pain?: No [...] PFSH PFSH Surgical History Hx of tonsillectomy [place] teeth extracted Family History Mother Diabetes Cancer, Onset Age: 40 thyroid cancer Family history of recurrent miscarriage 3 miscarriages Father Hypertension Maternal Grandmother , at 55 yo Breast cancer, Onset Age: 50 Brother Spina bifida Social History adopted: No household members: spouse housing: house current occupational status: previously employed 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 current occupational exposures/hazards: No pets and [...] 1-2 times per week duration: 15-30 minutes/day kaleb/mandaeism: Orthodoxy seatbelt use: always do you feel safe at home: Yes additional social history: 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 [address], [address] [place] [address] OFFICE VISIT Date of Service: 09/08/25 MR#: [id number] Acct: [id number] Name: CHARLIE MÁRQUEZ Rep #: [id number] : 2000 Provider: Dr. John Link MD Age/Sex: 25/F Location: [facility] Status: Signed Intake Vital Signs 08/12/25 08:24 08/26/25 09:53 09/08/25 11:15 Height 5 ft 9 in 5 ft 9 in 5 ft 9 in Weight: 169 lb 8 oz 171 lb 2 oz BMI 25.0 25.2 BP 120/80 136/82 H Intake Visit Reasons: 35 WK 6D OB Hog Feeder Required: No Is patient in pain?: No [...] PFSH PFSH Surgical History Hx of tonsillectomy [place] teeth extracted Family History Mother Diabetes Cancer, Onset Age: 40 thyroid cancer Family history of recurrent miscarriage 3 miscarriages Father Hypertension Maternal Grandmother , at 55 yo Breast cancer, Onset Age: 50 Brother Spina bifida Social History adopted: No household members: spouse housing: house current occupational status: previously employed 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 @ 32 wks, declined NIPT & Carrier testing Orders: Orders POC Urinalysis 2 Dip (Clinic) Today Clinical Quality Measures Falls Risk Screening/Assistive Devices Have you fallen in the past year?: No 09/08/25 1148 <Electronically signed by Meli collins MD> Date _ Meli Link MD Cosigner Signature: Date (if applicable) CC: ~ [facility] Work Phone: Reason for referral (narrative)No reason for referral information availableKaiser Martinez Medical Center Work Phone: Summary Purpose Family History Brother [...] section and content) DATE CREATED AUTHOR 05/08/2018 [facility] ([place]) DATE CREATED AUTHOR AUTHOR'S ORGANIZ ATION 12/18/2021 [facility] DATE CREATED AUTHOR AUTHOR'S ORGANIZ ATION 11/07/2024 [facility] DATE CREATED AUTHOR AUTHOR'S ORGANIZ ATION 06/12/2025 [facility] DATE CREATED AUTHOR AUTHOR'S ORGANIZ ATION 09/25/2025 [facility] Patient Care team informatio n (unrecognized section [...] Inactive Member Role/Relationship Status Dates Addie Valdez ENGINEERING PROJECT MANAGER, ENGINEERING PROJECT MANAGER-C Attending physician Active Start: August 26, 2025 [...] Inactive Member Role/Relationship Status Dates Addie Valdez ENGINEERING PROJECT MANAGER, ENGINEERING PROJECT MANAGER-C Attending physician Active Start: September 02, 2025 End: September 02, 2025 Addie Valdez ENGINEERING PROJECT 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 [employer] [facility]. provides no warranty or guarantee of the accuracy or completeness of information in this document.
[2025-10-01] MEDS: Lactated Ringers 1,000 ML 50 ML IV (18:28)
[2025-10-01 19:23] LABS: Syphilis Antibodies Nonreactive (Nonreactive)
[2025-10-01] MEDS: Oxytocin 15 Units/NS 250ml 15 UNITS/250 ML IV.SOLN 2 UNITS IV (21:50)
[2025-10-02] VITALS (44 sets, daily range): BP systolic 95–167; BP diastolic 50–78; PULSE 62–108; RESP 15–16; TEMP 35.5–36.9; O2SAT 96–100
[2025-10-02] MEDS: Lactated Ringers 1,000 ML 999 ML IV (05:45)
[2025-10-02] MEDS: fentaNYL-bupivacaine (epidural) 100 ML BAG EPIDURAL (06:34)
--- NOTE | 2025-10-02 08:36 | PCM.PN.BLA ---
Progress Note comfortable with epidural current tracing: FHT: 145 Moderate variability reactive occasional variable decelerations category II tracing-overall reassuring Breese: 4-5 Contractions Membranes: ruptured remains clear SVE:/0 Pitocin at 14mu A/P: Continue with position changes Titrate pitocin per protocol Epidural per anesthesia GBS neg Anticipate Dr Link aware of above assessment and agrees with plan of care Assessment & Plan Assessment/Plan (1) Encounter for induction of labor: (2) Small for dates affecting management of mother: QUALIFIERS: Fetus number: single or unspecified fetus Trimester: third trimester Qualified Code(s): O36.5930 - Maternal care for other known or suspected poor growth, third trimester, not applicable or unspecified (3) Anxiety: (4) FH: spina bifida: (5) History of miscarriage, currently : (6) Supervision of normal : QUALIFIERS: Normal : normal first Trimester: third trimester Qualified Code(s): Z34.03 - Encounter for supervision of normal first , third trimester (7) : QUALIFIERS: Weeks of gestation: 39 weeks Qualified Code(s): Z3A.39 - 39 weeks gestation of Multi Select Codes Urinary/Genital Urinary/Genital CPT Codes: No Charge
[2025-10-02] MEDS: Lactated Ringers 1,000 ML 200 ML IV (09:18)
--- NOTE | 2025-10-02 11:32 | EX.PCM.OBVAG ---
Assessment & Plan (1) Vaginal delivery: COMMENT: KW IOL 39weeks boy (2) Encounter for induction of labor: (3) Small for dates affecting management of mother: QUALIFIERS: Fetus number: single or unspecified fetus Trimester: third trimester Qualified Code(s): O36.5930 - Maternal care for other known or suspected poor growth, third trimester, not applicable or unspecified COMMENT: growth US:33wk:21% EFW, 41%AC (4) Anxiety: (5) FH: spina bifida: COMMENT: Brother-Pt not offered AFP testing at prior provider. (6) History of miscarriage, currently : (7) Supervision of normal : QUALIFIERS: Normal : normal first Trimester: third trimester Qualified Code(s): Z34.03 - Encounter for supervision of normal first , third trimester COMMENT: PRR(scanned/MyOBGYN) , [place] 10/07/25, Raymond (8) : QUALIFIERS: Weeks of gestation: 39 weeks Qualified Code(s): Z3A.39 - 39 weeks gestation of COMMENT: GBS neg, DANICA to [facility] @ 32 wks, declined NIPT & Carrier testing Maternal Data Information [place] Calculator Estimated Delivery Date Method Current WG Current Estimate 10/07/25 LMP (Certain) 39w 2d Final [place]: 10/02/25 Final [place] Source: [place] >20 weeks Gestational age: 39.2 Vaginal Delivery Maternal Presentation Maternal Presentation: Medically Indicated Induction Maternal Presentation: Presented to unit for induction of labor for 6 bpp. Type of Induction: Pitocin and Amniotomy Medical Reason for Induction: Compromise: list: Vaginal Delivery Information Procedure Performed: Spontaneous Vaginal Delivery Surgeon/Practitioner: Neva Dodge Date of Procedure: 10/02/25 Pre-Procedure Diagnosis: see problem list Post-Procedure Diagnosis: same Type of anesthesia: Epidural Estimated Blood Loss: 200 Time of Delivery: 11:14 Findings Description of procedure: Progressed well to 10cm dilated and made steady progress with effective maternal pushing. Delivered the head in ALIREZA presentation. The head was delivered atraumatically and no nuchal cord was identified. The anterior and posterior shoulders delivered without complication followed by the rest of the and the was placed on the maternal abdomen. Delayed cord clamping was employed for approximately 3 minutes. Cord was clamped and cut and gentle traction was applied to the cord and the placenta delivered spontaneously. Immediately following, it was noted to be intact with a 3 vessel cord. Uterine bleeding stable. The perineum and vagina were inspected and noted to have a first degree laceration which was repaired with 3-0 Vicryl in the usual fashion. EBL was 200cc. Patient and infant tolerated delivery well. Apgars 8/9. Dr Link notified of vaginal delivery and orders reviewed. Physician agrees with current plan of care. 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
--- NOTE | 2025-10-02 11:35 | DCINST_ITS ---
Discharge Instructions DC O2, CPAP, BIPAP needs Home O2 Discharge instructions: No Dressing / Incision Discharge Activity: Return to Normal Activity May resume sexual activity in: 6-8 weeks Dressing / Incision Call your doctor if you observe: Fever of 101 or Higher, Coldness, Increased Pain, Numbness or Tingling, Change in Color, Inability to urinate, Inability to have a bowel movement, Using more than 1 pad per hour, Shortness of breath, Dizziness, Fainting spells, Swelling in the ankles, Chest pain, Increased palpitations (irregular heartbeat), Calf discomfort and Uncontrolled pain Follow Up Care Please Follow Up With: Neva Dodge CNM When: Please call the office to schedule your follow up appointment in 6 weeks. If you had high blood pressure please call to schedule an appointment in 2 weeks. Test Results: Test results from this visit will be discussed in further detail at your follow- up appointment, if applicable. Discharge Plan Admission Admit Date/Time: 10/01/25 17:57 Attending Provider: Neva Dodge Primary Care Provider: Care Physician,Sonia Primary Discharge Orders/Prescriptions Prescriptions: No Action PNV-DHA 27 mg iron-1 mg -300 mg capsule PO (DME) breast pump Device See Rx Instructions .Route Qty: 1 0RF Rx Instructions: Medela breast pump. Use as directed. Referrals / Follow Up: Care Physician,Sonia Primary [Primary Care Provider, Medical]
[2025-10-02] MEDS: Oxytocin 15 Units/NS 250ml 15 UNITS/250 ML IV.SOLN 83 UNITS IV (11:42)
[2025-10-02] MEDS: GLYCERIN/WITCH HAZEL (TUCKS) MED..PAD 1 EACH TOPICAL (15:57)
[2025-10-02] MEDS: SELF ADMINISTRATION OF MEDS 1 EACH NOTE (16:19)
[2025-10-03 04:03] VITALS: BP 105/60; PULSE 66; RESP 16; TEMP 36.7; O2SAT 100
[2025-10-03 08:00] VITALS: BP 103/71; PULSE 74; RESP 16; TEMP 36.7; O2SAT 98
--- NOTE | 2025-10-03 08:58 | PN.OBGYN_ITS ---
Subjective Subjective Patient doing well without complaints. Tolerating PO. Ambulating and voiding without difficulty. Feeding well. Denies chest pain, shortness of breath, calf pain/swelling, fevers, chills, lightheadedness. Objective Data Objective Data Vital Signs: Vital Signs Temp Pulse Resp BP Pulse Ox O2 Del Method 98.0 F 66 16 105/60 100 Room Air 10/03/25 04:03 10/03/25 04:03 10/03/25 04:03 10/03/25 04:03 10/03/25 04:03 10/03/25 04:03 Oxygen Delivery Method Room Air Weight: 174 lb Body Mass Index (BMI) 25.7 Intake & Output: Intake and Output for Last 24 Hours 10/01/25 10/02/25 10/03/25 23:59 23:59 23:59 Intake Total 2.27 / 2.27 2904.40 / 2904.40 Output Total 2550 / 2550 Balance 2.27 / 2.27 354.40 / 354.40 Lab / Micro Data 10/01/25 14:55 10/01/25 14:55 ROS Constitutional Constitutional: Reports systems reviewed and no addt'l complaints, except as documented; Denies anorexia or headache(s) Cardiovascular Cardiovascular: Reports systems reviewed and no addt'l complaints, except as documented; Denies dizziness, dyspnea, nausea or tachypnea Respiratory/Chest Respiratory/Chest: Reports systems reviewed and no addt'l complaints, except as documented; Denies cough, dyspnea, shortness of breath at rest or tachypnea Gastrointestinal Gastrointestinal: Reports systems reviewed and no addt'l complaints, except as documented; Denies abdominal pain, constipation or nausea Genitourinary Genitourinary: Reports systems reviewed and no addt'l complaints, except as documented; Denies burning urination, difficulty urinating, dysuria, urinary frequency or urinary incontinence Musculoskeletal Musculoskeletal: Reports systems reviewed and no addt'l complaints, except as documented Integumentary Integumentary: Reports systems reviewed and no addt'l complaints, except as documented Neurologic Neurologic: Reports systems reviewed and no addt'l complaints, except as documented; Denies abnormal speech, dizziness or headache(s) Psychiatric Psychiatric: Reports systems reviewed and no addt'l complaints, except as documented Endocrine Endocrinology: Reports systems reviewed and no addt'l complaints, except as documented Hematologic/Lymphatic Hematologic/Lymphatic: Reports systems reviewed and no addt'l complaints, except as documented Physical Exam Const alert, oriented x3 and no apparent distress Neck full ROM Resp normal respiratory effort, normal air movement and no retractions Effort and Inspection: able to speak in complete sentences and symmetric chest movement GI soft to palpation Bladder / Kidney Exam: bladder normal to palpation Uterus Palpation: uterus fundus firm Extremity normal to inspection and full ROM Psych mental status grossly normal, thought process normal and cooperative Assessment & Plan (1) Vaginal delivery: COMMENT: KW IOL 39weeks boy PLAN: s/p PPD #1 1. routine post delivery care 2. breast feeding- support given 3. rh positive 4. rubella immune 5. OK for discharge home today (2) Encounter for induction of labor: (3) Small for dates affecting management of mother: QUALIFIERS: Fetus number: single or unspecified fetus Trimester: third trimester Qualified Code(s): O36.5930 - Maternal care for other known or suspected poor growth, third trimester, not applicable or unspecified COMMENT: growth US:33wk:21% EFW, 41%AC (4) Anxiety: (5) FH: spina bifida: COMMENT: Brother-Pt not offered AFP testing at prior provider. (6) History of miscarriage, currently : (7) Supervision of normal : QUALIFIERS: Normal : normal first T rimester: third trimester Qualified Code(s): Z34.03 - Encounter for supervision of normal first , third trimester COMMENT: PRR(scanned/[facility]) , [place] 10/07/25, Raymond (8) : QUALIFIERS: Weeks of gestation: 39 weeks Qualified Code(s): Z 3A.39 - 39 weeks gestation of COMMENT: GBS neg, DANICA to [facility] @ 32 wks, declined NIPT & Carrier testing Charges/Coding Multi Select Codes Urinary/Genital Urinary/Genital CPT Codes: No Charge
[2025-10-03 12:10] VITALS: BP 119/76; PULSE 72; RESP 16; TEMP 36.8; O2SAT 99
[2025-10-03] MEDS: GLYCERIN/WITCH HAZEL (TUCKS) MED..PAD 1 EACH TOPICAL (13:37)
[2025-10-03] MEDS: SELF ADMINISTRATION OF MEDS 1 EACH NOTE (13:37)
[2025-10-03 15:59] VITALS: BP 122/67; PULSE 75; RESP 16; TEMP 36.6; O2SAT 99
[2025-10-03 20:35] VITALS: BP 106/54; PULSE 74; RESP 16; TEMP 36.6; O2SAT 97
[2025-10-04 02:00] VITALS: BP 108/72; PULSE 75; RESP 16; TEMP 36.8; O2SAT 98
[2025-10-04 08:30] VITALS: BP 107/66; PULSE 78; RESP 16; TEMP 36.9
--- NOTE | 2025-10-04 09:18 | PCM.PN.OB ---
Subjective Subjective Patient doing well without complaints. Tolerating PO. Ambulating and voiding without difficulty. feeding well. Denies chest pain, shortness of breath, calf pain/swelling, fevers, chills, lightheadedness. Objective Data Objective Data Vital Signs: Vital Signs Temp Pulse Resp BP Pulse Ox O2 Del Method 98.5 F 78 16 107/66 98 Room Air 10/04/25 08:30 10/04/25 08:30 10/04/25 08:30 10/04/25 08:30 10/04/25 02:00 10/04/25 02:00 Oxygen Delivery Method Room Air Weight: 174 lb Body Mass Index (BMI) 25.7 Intake & Output: Intake and Output for Last 24 Hours 10/02/25 10/03/25 10/04/25 23:59 23:59 23:59 Intake Total 2904.40 / 2904.40 Output Total 2550 / 2550 Balance 354.40 / 354.40 Lab / Micro Data 10/01/25 14:55 10/01/25 14:55 ROS Constitutional Constitutional: Reports systems reviewed and no addt'l complaints, except as documented Cardiovascular Cardiovascular: Reports systems reviewed and no addt'l complaints, except as documented Respiratory/Chest Respiratory/Chest: Reports systems reviewed and no addt'l complaints, except as documented Gastrointestinal Gastrointestinal: Reports systems reviewed and no addt'l complaints, except as documented Physical Exam Const alert, oriented x3 and no apparent distress HEENT Head and Scalp: atraumatic Resp normal respiratory effort GI soft to palpation and non-tender Bimanual Exam - Vag & Uterus: uterus non-tender Uterus Palpation: uterus fundus firm (below Umbilicus) Assessment & Plan (1) Vaginal delivery: COMMENT: KW IOL 39weeks boy PLAN: Plan s/p PPD # 1 1. routine post delivery care 2. breast feeding- support given 3. rh positive 4. rubella immune
--- NOTE | 2025-10-04 10:48 | CASEMGMT ---
Social Work Assessment Labor and Delivery Unit Patient Address:[address] [place] [address] [address] [place] [address] Phone number: Date of Referral: Time of Referral: Referred By: Date of Intervention: Time of Intervention: Reason for Referral: History obtained from: medical records, MOB and FOB Household composition: Currently residing in the home is MOB, FOB Patient's parent/guardian status: Medical History: Educational Status: Financial Status: Infant Supplies: Childcare/Caregiver(s): Transportation: Programs/Agencies Involved: Children Services/Legal Issues: Behavioral Health Issues: Mental Health History: Substance Use History: Family History: Drug Screens: Family/Social Stressors: Support Systems: Depression/Shaken Baby/Safe Sleeping: ASSESSMENT: Safe Plan of Care for infant related to substance use: PLAN: No other services requested or indicated. MOB and baby to be discharged when medically ready. Parents were provided literature regarding: signs and symptoms of baby blues and mood and anxiety disorders, Help Me Grow, shaken baby prevention, ABCs of safe sleep and a list of county resources that are available for them should any needs present themselves.
--- NOTE | 2025-10-04 10:52 | CASEMGMT ---
Social Work Assessment Labor and Delivery Unit Patient Address: [address] [place] [address] [address] [place] [address] Phone number: [phone] Date of Referral: 10/02/25 Time of Referral: 1912 Referred By: Neva Dodge Date of Intervention: 10/04/25 Time of Intervention: 1000 Reason for Referral: "hx of anxiety" Sw completed chart review and acknowledges social work consult. Sw presented to bedside and introduced self to mother of baby, BELEN- Denisha and father of baby, JUSTYN- Raymond. Sw explained reason for sw involvement and completed psychosocial assessment. History obtained from: medical records, MOB and FOB Household composition: Currently residing in the home is MOB, FOB, and baby when ready for discharge. Parents deny any housing concerns stating that their home is safe and secure. Patient's parent/guardian status: Parents report that they met when they were sophomores in high school while they were working at the [employer] together. They have been for 8 years. NO concerns reported of domestic violence or intimate partner violence. [place] baby is first baby for parents together. Medical History: BELEN is 25 year old female who is 2, para 0- now 1 following labor and delivery of . BELEN received routine care during with [place]. BELEN presented to hospital following scheduled appointment due to elevated blood pressure. BELEN delivered baby via vaginal delivery on 10/02/25 at 39 weeks gestation. Baby boy, named Edis was born weighing 6lb 9oz and had apgars of 8 and 9 at one and five minutes of life, respectfully. BELEN is breast feeding and reports baby will be followed by Dr. Guzman for pediatric care. Educational Status: BELEN obtained her GED and FOB graduated from high school. No problems with reading, learning or comprehension. Financial Status: FOB is gainfully employed outside of the home working as a wind energy mechanic. MOB is not employed, she will be a stay at home mom. 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 Infant Supplies: All necessary baby supplies obtained, including: car seat, safe sleep space, clothes, diapers and wipes. Childcare/Caregiver(s): MOB will be the primary caregiver to baby, along with FOB when he is not working. Transportation: Both parents have their drivers license along with reliable means of transportation, no barriers. Programs/Agencies Involved: Parents are not connected to any community resources, however due to MOB not working at this time, they asked if they are now eligible for any financial resources. Sw asked what JUSTYN gross monthly income is. JUSTYN stated that his gross monthly income is roughly $4,000. Sw stated that they are over income for SNAP. Sw informed parents that they have thirty days to make sure they get baby added to JUSTYN's insurance. JUSTYN expressed understanding, and stated that he is not worried about their finances, he was just curious. Children Services/Legal Issues: No history of children services involvement, no issues or concerns warranting referral to be made at this time. Behavioral Health Issues: Mental Health History: JUSTYN denies mental health history. MOB states that she has history of anxiety. MOB states that she does not do well sitting still, it makes her feel antsy. MOB reports that she feels better when she is doing something and feels better when she is being productive. Sw asked MOB how she feels this will transpire during her period. MOB states that she is not sure, but admits that she is slightly nervous about it. Substance Use History: Parents deny substance use prior to and during . Family History: Parents deny family history of addiction or significant mental health history. Drug Screens: No drug screens observed while completing chart review. Family/Social Stressors: Parents deny any issues, stressors or concerns. Support Systems: BELEN reports that JUSTYN, her mom and her sister are her biggest supports. Depression/Shaken Baby/Safe Sleeping: Sw educated parents on signs and symptoms of baby blues and mood and anxiety symptoms to be on the lookout for during this period. Parents asked appropriate questions. Sw explained to MOB that she is more at risk for experiencing symptoms due to her mental health history. MOB expressed understanding. JUSTYN states that he would be able to recognize if MOB were struggling and would know how to help and support her. Sw educated parents on shaken baby prevention and ABCs of safe sleep, parents expressed understanding. ASSESSMENT: MOB and baby admitted following labor and delivery. MOB with history of anxiety, is not prescribed medication and is not currently connected to any mental health professional resources. MOB states that she felt good during her , and reports that now that baby is here she feels good, feels like herself. MOB reports to having a simeon with baby. While meeting with parents MOB was sitting on bed and was observed holding baby lovingly. Baby was sleeping peacefully. FOB was sitting on couch and was involved respectfully in conversation. Parents were attentive and engaged in completion of assessment. Parents report to having all necessary baby items. FOB asked appropriate questions regarding MOB mental health and signs to be on the lookout for regarding anxiety and depression. PLAN: No other services requested or indicated. MOB and baby to be discharged when medically ready. Parents were provided literature regarding: signs and symptoms of baby blues and mood and anxiety disorders, Help Me Grow, shaken baby prevention, ABCs of safe sleep and a list of county resources that are available for them should any needs present themselves. Alessandra Tran, EXPERT WITNESS, RECORD CENTER SPECIALIST
--- NOTE | 2025-10-10 10:19 | PCM.DC.SUM ---
Providers Date of Admission: 10/01/25 Primary Care Physician: Sonia Primary Care Phys Reason For Visit: VAGINAL DELIVERY Diagnosis Discharge Diagnosis (1) Vaginal delivery: Status: Acute Code(s): O80 - Encounter for full-term uncomplicated delivery Plan s/p PPD # 1 1. routine post delivery care 2. breast feeding- support given 3. rh positive 4. rubella immune Medications at Discharge Home Medications multivitamin no.47-iron fum 27 mg-folate no.1 1 mg-dha 300 mg capsule (PNV-DHA) cap PO 08/11/25 breast pump #1 ea 08/18/25 Hospital Course Summary of Care Provided Hospital Course: iol due to SGA had uncomplicated routine recvoery dc to home ppd 2 Weight / BMI Weight Weight: 174 lb Body Mass Index (BMI) 25.7 ABG / Lab / Microbiology Data 10/01/25 14:55 10/01/25 14:55 D/C Instructions May resume sexual activity in: 6-8 weeks Call your doctor if you observe: Fever of 101 or Higher, Coldness, Increased Pain, Numbness or Tingling, Change in Color, Inability to urinate, Inability to have a bowel movement, Using more than 1 pad per hour, Shortness of breath, Dizziness, Fainting spells, Swelling in the ankles, Chest pain, Increased palpitations (irregular heartbeat), Calf discomfort and Uncontrolled pain DC O2, CPAP, BIPAP Needs Home O2 Discharge instructions: No Please Follow Up With: Neva Dodge CNM When: Please call the office to schedule your follow up appointment in 6 weeks. If you had high blood pressure please call to schedule an appointment in 2 weeks. Meaningful Use Info Meaningful Use Meaningful Use Diagnoses (Choose all that apply): None applicable Discharge Plan Admission Admit Date/Time: 10/01/25 17:57 Attending Provider: Neva Dodge Primary Care Provider: Care Physician,Sonia Primary Discharge Orders/Prescriptions Prescriptions: No Action PNV-DHA 27 mg iron-1 mg -300 mg capsule PO (DME) breast pump Device See Rx Instructions .Route Qty: 1 0RF Rx Instructions: Medela breast pump. Use as directed. Referrals / Follow Up: Care Physician,No Primary [Primary Care Provider, Medical] Disposition Disposition (needs filled in before D/C Order can be placed): Home, Self Care
== END 2025-10-04 11:40 | disposition home or self-care (01) | DRG 807 ==
LOC: WP 18:13
PROVIDERS: Admitting Provider Advanced Practice Midwife; Referring Provider Advanced Practice Midwife; Visit Provider Advanced Practice Midwife
DX: O99.344 Other mental disorders complicating childbirth (principal); Z37.0 Single live birth; F41.9 Anxiety disorder, unspecified; O70.0 First degree perineal laceration during delivery; O76 Abnormality in fetal heart rate and rhythm complicating labor and delivery; Z3A.39 39 weeks gestation of pregnancy; Z87.59 Personal history of other complications of pregnancy, childbirth and the puerperium; Z82.79 Family history of other congenital malformations, deformations and chromosomal abnormalities
CPT/HCPCS: 59025; 59050; 76819; 82565; 82570; 84156; 84450; 84460; 84550; 85027; 86780; 86850; 86900; 86901; 99221; G0378